=== PATIENT | male | born 1970 | race Caucasian/White ===

== ENCOUNTER 2016-11-18 17:56 | Emergency (ER) | payer MEDICAID ==
[~2016-11-18] VITALS: Ht 182.9 cm; Wt 109.5 kg
[~2016-11-18 17:56] MED LIST: BUPR150T73 PO; FOLI-17 PO; GABA300C10 PO; HYDR-3240 PO; HYDR50TA13 PO; LORA-446 PO; METR500T PO; MULT1TAB60 PO; OXYC1TAB9 PO; PANT40TA5 PO; POTA20TA14 PO; QUET100T PO; QUET200T PO; QUET400T4 PO; SERT25TA3 PO; SIMV20TA3 PO; SUCR1TAB PO; THIA100T6 PO; WARF10TA6 PO; WARF7.5T6 PO
[2016-11-18] MEDS ORDERED: FAMOTIDINE 20 MG/2 ML ONE (18:21)
[2016-11-18] MEDS ORDERED: ONDANSETRON 2MG/ML, 2ML ONE (18:21)
[2016-11-18] MEDS ORDERED: SODIUM CHLORIDE FLUSH 10ML SYR IVF ONE (18:30)
[2016-11-18] MEDS ORDERED: FAMOTIDINE 20 MG/2 ML IVP ONE (18:30)
[2016-11-18] MEDS ORDERED: ONDANSETRON 2MG/ML, 2ML IVPush ONE (18:30)
[2016-11-18] MEDS ORDERED: SODIUM CHLORIDE 0.9% 1,000ML IVBOLUS ONE ×2 (18:30→20:00)
[2016-11-18 19:02] LABS: HEMOGLOBIN 13.6 g/dL (13.7-18.0)
[2016-11-18 19:09] LABS: ASPARTATE AMINO TRANSFERASE 71 U/L (15-37); BLOOD UREA NITROGEN 16 mg/dL (7-18)
[2016-11-18] MEDS ORDERED: MORPHINE SULFATE 4 MG/ML, 1ML ONE (19:25)
[2016-11-18] MEDS ORDERED: morphine SULFATE 10 MG/ML, 1ML IVPush ONE (19:30)
[2016-11-18] MEDS ORDERED: HYDROmorphone 1 MG/ML, 1ML IV ONE (20:00)
[2016-11-18] MEDS ORDERED: HYDROmorphone 1 MG/ML, 1ML ONE (20:10)
[2016-11-18] MEDS ORDERED: MAALOX/HYOSCYAMINE/LIDOCAINE 45 ML BOTTLE PO ONE (20:30)
[2016-11-18 22:24] VITALS: BP 151/85
== END 2016-11-18 22:40 | disposition home or self-care (01) ==
LOC: ED 21:44
DX: K52.9 Noninfective gastroenteritis and colitis, unspecified (principal); K29.20 Alcoholic gastritis without bleeding; R10.84 Generalized abdominal pain; E78.5 Hyperlipidemia, unspecified
CPT/HCPCS: 36415; 74020; 80053; 81001; 83690; 85025; 87324; 89055; 93005; 96361; 96374; 96375; 99285; J1170; J2270; J2405; J7030; S0028

== ENCOUNTER 2017-04-21 00:03 | Emergency (ER) | payer MEDICAID ==
[~2017-04-21] VITALS: Ht 182.9 cm; Wt 108.2 kg
[2017-04-21 00:04] VITALS: BP 143/97
[2017-04-21] MEDS ORDERED: MORPHINE SULFATE 4 MG/ML, 1ML IVPush PRN (01:00)
[2017-04-21] MEDS ORDERED: ONDANSETRON 2MG/ML, 2ML IVPush ONE (01:00)
[2017-04-21] MEDS ORDERED: SODIUM CHLORIDE 0.9% 1,000ML IVBOLUS ONE (01:00)
[2017-04-21 01:03] LABS: HEMATOCRIT 42.6 % (39.2-51.8); HEMOGLOBIN 14.3 g/dL (13.7-18.0); WHITE BLOOD COUNT 7.2 x10^3/uL (3.4-10)
[2017-04-21 01:13] LABS: ASPARTATE AMINO TRANSFERASE 74 U/L (15-37); BLOOD UREA NITROGEN 14 mg/dL (7-18)
[2017-04-21] MEDS ORDERED: ONDANSETRON 2MG/ML, 2ML ONE (01:31)
[2017-04-21] MEDS ORDERED: MORPHINE SULFATE 4 MG/ML, 1ML ONE (01:31)
[2017-04-21] MEDS ORDERED: HYDROmorphone 1 MG/ML, 1ML ONE (03:15)
[2017-04-21] MEDS ORDERED: HYDROmorphone 1 MG/ML, 1ML IV ONE (03:30)
== END 2017-04-21 03:57 | disposition home or self-care (01) ==
LOC: ED 03:48
DX: K29.20 Alcoholic gastritis without bleeding (principal); Z86.718 Personal history of other venous thrombosis and embolism; D65 Disseminated intravascular coagulation [defibrination syndrome]
CPT/HCPCS: 36415; 80053; 80307; 81001; 83690; 85025; 96361; 96374; 96375; 99285; J1170; J2405; J7030

== ENCOUNTER 2017-04-22 02:11 | Emergency (ER) | payer MEDICAID ==
[~2017-04-22] VITALS: Ht 182.9 cm; Wt 108.7 kg
[2017-04-22] MEDS ORDERED: ONDANSETRON 2MG/ML, 2ML IVPush ONE (02:30)
[2017-04-22] MEDS ORDERED: SODIUM CHLORIDE 0.9% 1,000ML IVBOLUS ONE (02:30)
[2017-04-22 03:03] LABS: ASPARTATE AMINO TRANSFERASE 47 U/L (15-37); BLOOD UREA NITROGEN 11 mg/dL (7-18)
[2017-04-22] MEDS ORDERED: ONDANSETRON 2MG/ML, 2ML ONE (03:12)
[2017-04-22] MEDS ORDERED: HYDROmorphone 1 MG/ML, 1ML ONE ×2 (03:12→04:07)
[2017-04-22 03:16] LABS: HEMATOCRIT 40.6 % (39.2-51.8); HEMOGLOBIN 13.6 g/dL (13.7-18.0); WHITE BLOOD COUNT 5.2 x10^3/uL (3.4-10)
[2017-04-22] MEDS: HYDROmorphone 1 MG/ML, 1ML IVPush PRN ×2 (03:18→04:09)
[2017-04-22] MEDS ORDERED: OMNIPAQUE 350 MG/ML, 100ML BOTTLE ONE (03:50)
[2017-04-22 04:00] VITALS: BP 147/88
== END 2017-04-22 04:59 | disposition home or self-care (01) ==
LOC: ED 02:49
DX: A09 Infectious gastroenteritis and colitis, unspecified (principal); E78.5 Hyperlipidemia, unspecified; F32.9 Major depressive disorder, single episode, unspecified; Z90.49 Acquired absence of other specified parts of digestive tract
CPT/HCPCS: 36415; 74177; 80053; 80307; 83690; 85025; 96361; 96374; 96375; 96376; 99285; J1170; J2405; J7030; Q9967

== ENCOUNTER 2017-05-26 04:11 | Emergency (ER) | payer MEDICAID ==
[~2017-05-26] VITALS: Ht 182.9 cm; Wt 106.5 kg
[2017-05-26] MEDS ORDERED: SODIUM CHLORIDE 0.9% 1,000ML IVBOLUS ONE ×2 (05:00→07:00)
[2017-05-26] MEDS ORDERED: ONDANSETRON 2MG/ML, 2ML IVPush ONE (05:00)
[2017-05-26] MEDS ORDERED: ONDANSETRON 2MG/ML, 2ML ONE (05:06)
[2017-05-26] MEDS ORDERED: LORazepam 2 MG/ML, 1ML ONE ×3 (05:06→07:44)
[2017-05-26] MEDS: LORazepam 2 MG/ML, 1ML IVPush PRN ×4 (05:14→08:25)
[2017-05-26] MEDS ORDERED: THIAMINE 100 MG in SODIUM CHLORIDE 0.9% 50 ML IVPB ONE (05:30)
[2017-05-26] MEDS ORDERED: FAMOTIDINE 20 MG/2 ML ONE (05:33)
[2017-05-26] MEDS ORDERED: MAALOX/HYOSCYAMINE/LIDOCAINE 45 ML BTL ONE (05:33)
[2017-05-26 05:42] LABS: HEMATOCRIT 46.2 % (39.2-51.8); WHITE BLOOD COUNT 5.9 x10^3/uL (3.4-10)
[2017-05-26 05:51] LABS: ASPARTATE AMINO TRANSFERASE 165 U/L (15-37); BLOOD UREA NITROGEN 6 mg/dL (7-18)
[2017-05-26] MEDS ORDERED: FAMOTIDINE 20 MG/2 ML IVP ONE (06:00)
[2017-05-26] MEDS ORDERED: MAALOX/HYOSCYAMINE/LIDOCAINE 45 ML BTL PO ONE (06:00)
[2017-05-26] MEDS ORDERED: HYDROmorphone 1 MG/ML, 1ML ONE ×2 (07:10→08:14)
[2017-05-26] MEDS: HYDROmorphone 1 MG/ML, 1ML IVPush PRN ×2 (07:20→08:25)
[2017-05-26 07:22] VITALS: BP 139/94
== END 2017-05-26 08:42 | disposition home or self-care (01) ==
LOC: ED 05:15
DX: K29.20 Alcoholic gastritis without bleeding (principal); F41.9 Anxiety disorder, unspecified; F10.239 Alcohol dependence with withdrawal, unspecified; E78.5 Hyperlipidemia, unspecified
CPT/HCPCS: 36415; 80053; 80307; 81001; 83690; 85025; 87086; 96361; 96365; 96375; 96376; 99284; J1170; J2060; J2405; J3411; J7030; G0479; S0028

== ENCOUNTER 2017-05-26 23:18 | Emergency (ER) | payer MEDICAID ==
[~2017-05-26] VITALS: Ht 182.9 cm; Wt 109.5 kg
[2017-05-27 00:27] LABS: BLOOD UREA NITROGEN 6 mg/dL (7-18)
[2017-05-27 00:29] LABS: ASPARTATE AMINO TRANSFERASE 104 U/L (15-37)
[2017-05-27] MEDS ORDERED: LORazepam 2 MG/ML, 1ML IVPush ONE (00:30)
[2017-05-27] MEDS ORDERED: PROMETHAZINE 25 MG/ML, 1ML IM ONE (00:30)
[2017-05-27] MEDS ORDERED: SODIUM CHLORIDE FLUSH 10ML SYR IVF ONE (00:30)
[2017-05-27] MEDS ORDERED: THIAMINE 100 MG/ML, 2ML IM ONE (00:30)
[2017-05-27] MEDS ORDERED: ONDANSETRON 2MG/ML, 2ML IVPush ONE (00:30)
[2017-05-27] MEDS ORDERED: SODIUM CHLORIDE 0.9% 1,000ML IVBOLUS ONE (00:30)
[2017-05-27 00:33] LABS: HEMATOCRIT 36.6 % (39.2-51.8); HEMOGLOBIN 12.6 g/dL (13.7-18.0)
[2017-05-27] MEDS ORDERED: PROMETHAZINE 25 MG/ML, 1ML ONE (00:34)
[2017-05-27] MEDS ORDERED: LORazepam 2 MG/ML, 1ML ONE (00:34)
[2017-05-27] MEDS ORDERED: ONDANSETRON 2MG/ML, 2ML ONE (00:34)
[2017-05-27] MEDS ORDERED: THIAMINE 100MG TABLET ONE (00:34)
[2017-05-27 00:42] LABS: PATH.CAST-FLAG NOT PRESENT; SPERM-FLAG NOT PRESENT; SRC-FLAG NOT PRESENT; XTAL-FLAG NOT PRESENT; YLC-FLAG NOT PRESENT
[2017-05-27 01:41] VITALS: BP 129/79
== END 2017-05-27 02:22 | disposition home or self-care (01) ==
LOC: ED 05-27 00:23
DX: K29.20 Alcoholic gastritis without bleeding (principal); E78.5 Hyperlipidemia, unspecified; F10.239 Alcohol dependence with withdrawal, unspecified; R45.1 Restlessness and agitation; Z90.49 Acquired absence of other specified parts of digestive tract
CPT/HCPCS: 36415; 80053; 80307; 81001; 83690; 85025; 96361; 96372; 96374; 96375; 99285; J2060; J2405; J2550; J3411; J7030; G0479

== ENCOUNTER 2017-06-07 08:40 | Emergency (ER) | payer MEDICAID ==
[~2017-06-07] VITALS: Ht 182.9 cm; Wt 109.0 kg
[2017-06-07] MEDS ORDERED: FAMOTIDINE 20 MG/2 ML ONE (09:09)
[2017-06-07] MEDS ORDERED: ONDANSETRON 2MG/ML, 2ML ONE ×2 (09:09→10:40)
[2017-06-07] MEDS ORDERED: LORazepam 2 MG/ML, 1ML ONE ×2 (09:09→11:00)
[2017-06-07] MEDS ORDERED: ONDANSETRON 2MG/ML, 2ML IVPush ONE (09:30)
[2017-06-07] MEDS ORDERED: LORazepam 2 MG/ML, 1ML IVPush ONE ×2 (09:30→11:00)
[2017-06-07] MEDS ORDERED: SODIUM CHLORIDE 0.9% 1,000ML IVBOLUS ONE (09:30)
[2017-06-07] MEDS ORDERED: SODIUM CHLORIDE FLUSH 10ML SYR IVF ONE (09:30)
[2017-06-07] MEDS ORDERED: PLEASE ENTER HEIGHT AND WEIGHT MC SCH (09:30)
[2017-06-07] MEDS ORDERED: FAMOTIDINE 20 MG/2 ML IVP ONE (09:30)
[2017-06-07 09:41] LABS: HEMATOCRIT 44.2 % (39.2-51.8); HEMOGLOBIN 15.4 g/dL (13.7-18.0); WHITE BLOOD COUNT 4.3 x10^3/uL (3.4-10)
[2017-06-07 09:42] LABS: ASPARTATE AMINO TRANSFERASE 74 U/L (15-37); BLOOD UREA NITROGEN 7 mg/dL (7-18)
[2017-06-07 09:43] LABS: IS PT STATUS REG ER OR PRE ER? YES
[2017-06-07] MEDS ORDERED: MAALOX/HYOSCYAMINE/LIDOCAINE 45 ML BTL ONE (10:04)
[2017-06-07] MEDS ORDERED: MAALOX/HYOSCYAMINE/LIDOCAINE 45 ML BTL PO ONE (10:30)
[2017-06-07] MEDS ORDERED: HYDROmorphone 1 MG/ML, 1ML ONE (10:40)
[2017-06-07 11:27] VITALS: BP 136/88
== END 2017-06-07 11:40 | disposition home or self-care (01) ==
LOC: ED 11:00
DX: K29.20 Alcoholic gastritis without bleeding (principal); F10.229 Alcohol dependence with intoxication, unspecified; R79.89 Other specified abnormal findings of blood chemistry; Z88.0 Allergy status to penicillin; Z90.49 Acquired absence of other specified parts of digestive tract
CPT/HCPCS: 36415; 71010; 76700; 80053; 80307; 83690; 84484; 85025; 93005; 96361; 96374; 96375; 96376; 99285; J2060; J2405; J7030; G0479; S0028

== ENCOUNTER 2017-06-15 08:35 | Emergency (ER) | payer MEDICAID ==
[~2017-06-15] VITALS: Ht 182.9 cm; Wt 107.0 kg
[2017-06-15] MEDS ORDERED: FAMO-79 PO (08:58)
[2017-06-15] MEDS ORDERED: SERT100T PO (08:59)
[2017-06-15] MEDS ORDERED: MAALOX/HYOSCYAMINE/LIDOCAINE 45 ML BTL ONE (09:23)
[2017-06-15] MEDS ORDERED: ONDANSETRON 2MG/ML, 2ML ONE (09:23)
[2017-06-15] MEDS ORDERED: LORazepam 2 MG/ML, 1ML ONE (09:23)
[2017-06-15] MEDS ORDERED: PANTOPRAZOLE 40 MG IV ONE (09:23)
[2017-06-15] MEDS ORDERED: MAALOX/HYOSCYAMINE/LIDOCAINE 45 ML BTL PO ONE (09:30)
[2017-06-15] MEDS ORDERED: ONDANSETRON 2MG/ML, 2ML IVPush ONE (09:30)
[2017-06-15] MEDS ORDERED: SODIUM CHLORIDE FLUSH 10ML SYR IVF ONE (09:30)
[2017-06-15] MEDS ORDERED: LORazepam 2 MG/ML, 1ML IVPush PRN (09:30)
[2017-06-15] MEDS ORDERED: PANTOPRAZOLE 40 MG IV IVP ONE (09:30)
[2017-06-15] MEDS ORDERED: SODIUM CHLORIDE 0.9% 1,000ML IVBOLUS ONE ×2 (09:30→11:30)
[2017-06-15 09:46] LABS: ASPARTATE AMINO TRANSFERASE 123 U/L (15-37); BLOOD UREA NITROGEN 7 mg/dL (7-18)
[2017-06-15 09:57] LABS: HEMATOCRIT 36.8 % (39.2-51.8); HEMOGLOBIN 12.8 g/dL (13.7-18.0); WHITE BLOOD COUNT 4.6 x10^3/uL (3.4-10)
[2017-06-15 09:58] LABS: ANISOCYTOSIS 1+
[2017-06-15] MEDS ORDERED: OMNIPAQUE 350 MG/ML, 100ML BOTTLE ONE (10:12)
[2017-06-15] MEDS ORDERED: morphine SULFATE 10 MG/ML, 1ML IVPush ONE ×2 (10:30→11:30)
[2017-06-15] MEDS ORDERED: morphine SULFATE 10 MG/ML, 1ML ONE ×2 (10:40→11:46)
[2017-06-15] MEDS ORDERED: CHLORDIAZEPOXIDE 25 MG CAPSULE PO PRN (11:30)
[2017-06-15 12:31] VITALS: BP 142/86
== END 2017-06-15 12:34 | disposition home or self-care (01) ==
LOC: ED 09:45
DX: K52.9 Noninfective gastroenteritis and colitis, unspecified (principal); R11.2 Nausea with vomiting, unspecified; R19.7 Diarrhea, unspecified; K29.20 Alcoholic gastritis without bleeding; F10.239 Alcohol dependence with withdrawal, unspecified; E78.5 Hyperlipidemia, unspecified; Z90.49 Acquired absence of other specified parts of digestive tract; Z88.0 Allergy status to penicillin
CPT/HCPCS: 36415; 74177; 80053; 83690; 85025; 85610; 85730; 93005; 96361; 96374; 96375; 96376; 99285; C9113; J2060; J2270; J2405; J7030; Q9967

== ENCOUNTER 2017-09-28 22:15 | Observation (INO) | payer MEDICAID, OTHER ==
[~2017-09-28] VITALS: Ht 182.9 cm; Wt 117.6 kg
[~2017-09-28 22:15] MED LIST changes: +FAMO-79 PO; +SERT100T PO
[2017-09-28 23:16] LABS: BASOPHILS # (AUTO) 0.04 x10^3/uL (0-0.1); BASOPHILS % (AUTO) 0 % (0-1); EOSINOPHILS # (AUTO) 0.05 x10^3/uL (0-0.4); EOSINOPHILS % (AUTO) 1 % (1-7); LYMPHOCYTES # (AUTO) 1.43 x10^3/uL (1-3.4); LYMPHOCYTES % (AUTO) 14 % (22-44); MD NO; MEAN CORPUSCULAR HEMOGLOBIN 36.2 pg (27.5-34.5); MEAN CORPUSCULAR VOLUME 106.4 fL (81-97); MEAN PLATELET VOLUME 6.9 fL (7.4-10.4); MONOCYTES # (AUTO) 0.53 x10^3/uL (0.2-0.8); MONOCYTES % (AUTO) 5 % (2-9); NEUTROPHILS # (AUTO) 8.18 x10^3/uL (1.8-6.8); NEUTROPHILS % (AUTO) 80 % (42-75); PLATELET COUNT 125 x10^3/uL (130-400); RED CELL DISTRIBUTION WIDTH 14.4 % (9.4-14.8)
[2017-09-28 23:21] LABS: ALANINE AMINOTRANSFERASE 21 U/L (12-78); ALBUMIN 3.8 g/dL (3.4-5.0); ANION GAP 11 mmol/L (5-15); CALCIUM 8.2 mg/dL (8.5-10.1); CHLORIDE 108 mmol/L (98-107)
[2017-09-28 23:23] LABS: ALKALINE PHOSPHATASE 76 U/L (45-117); BILIRUBIN,TOTAL 0.3 mg/dL (0.2-1.0); TOTAL PROTEIN 7.6 g/dL (6.4-8.2)
[2017-09-28 23:23] LABS: AMPHETAMINE SCREEN, URINE Negative (Negative); BARBITURATE SCREEN, URINE Negative (Negative); BENZODIAZEPINE SCREEN, URINE Negative (Negative); CANNABINOID SCREEN, URINE Negative (Negative); COCAINE SCREEN, URINE Negative (Negative); METHADONE SCREEN, URINE Negative (Negative); OPIATE SCREEN, URINE Negative (Negative)
[2017-09-28 23:25] LABS: ACETAMINOPHEN < 2 mcg/mL (10-30); SALICYLATE LEVEL < 1.7 mg/dL (2.8-20.0)
[2017-09-29] MEDS ORDERED: ONDANSETRON ODT 4 MG PO PRN (07:30)
[2017-09-29 08:12] VITALS: BP 163/84
[2017-09-29] MEDS: SERTRALINE 100MG TABLET PO SCH (08:28)
[2017-09-29] MEDS: ACETAMINOPHEN 325 MG TABLET PO PRN ×3 (08:28→19:31)
[2017-09-29] MEDS: LORazepam 1MG TABLET PO PRN ×2 (08:28→17:26)
[2017-09-29] MEDS: FOLIC ACID 1 MG TABLET PO SCH (08:28)
[2017-09-29] MEDS ORDERED: THIAMINE 100MG TABLET PO ONE (09:00)
[2017-09-29 17:29] VITALS: BP 132/79
[2017-09-29 19:21] VITALS: BP 132/82
[2017-09-29] MEDS: QUETIAPINE 200 MG TABLET PO SCH (20:55)
[2017-09-29] MEDS ORDERED: TRIAMCINOLONE CRM 0.1%, 15GM TP SCH (22:58)
[2017-09-30 07:00] VITALS: BP 130/81
[2017-09-30] MEDS: TRIAMCINOLONE CRM 0.1%, 15GM TP SCH (09:14)
[2017-09-30] MEDS: FOLIC ACID 1 MG TABLET PO SCH (09:14)
[2017-09-30] MEDS: SERTRALINE 100MG TABLET PO SCH (09:14)
[2017-09-30] MEDS: LORazepam 1MG TABLET PO PRN ×2 (09:14→16:02)
[2017-09-30 20:00] VITALS: BP 134/72
[2017-09-30] MEDS: QUETIAPINE 200 MG TABLET PO SCH (20:31)
[2017-10-01 07:30] VITALS: BP 128/82
[2017-10-01] MEDS: FOLIC ACID 1 MG TABLET PO SCH (08:44)
[2017-10-01] MEDS: SERTRALINE 100MG TABLET PO SCH (08:44)
[2017-10-01] MEDS: TRIAMCINOLONE CRM 0.1%, 15GM TP SCH (08:44)
[2017-10-01] MEDS: LORazepam 1MG TABLET PO PRN (19:43)
[2017-10-01 20:00] VITALS: BP 137/77
[2017-10-01] MEDS: QUETIAPINE 200 MG TABLET PO SCH (20:31)
[2017-10-02 08:19] VITALS: BP 119/79
[2017-10-02] MEDS: FOLIC ACID 1 MG TABLET PO SCH (08:33)
[2017-10-02] MEDS: SERTRALINE 100MG TABLET PO SCH (08:33)
[2017-10-02] MEDS: TRIAMCINOLONE CRM 0.1%, 15GM TP SCH (08:36)
[2017-10-02 19:54] VITALS: BP 127/84
[2017-10-02] MEDS: QUETIAPINE 200 MG TABLET PO SCH (20:40)
[2017-10-02] MEDS: ACETAMINOPHEN 325 MG TABLET PO PRN (20:40)
[2017-10-02] MEDS: LORazepam 1MG TABLET PO PRN (20:40)
[2017-10-03 08:17] VITALS: BP 120/75
[2017-10-03] MEDS: SERTRALINE 100MG TABLET PO SCH (08:23)
[2017-10-03] MEDS: TRIAMCINOLONE CRM 0.1%, 15GM TP SCH (08:24)
[2017-10-03] MEDS: LORazepam 1MG TABLET PO PRN ×2 (08:24→17:27)
[2017-10-03] MEDS: FOLIC ACID 1 MG TABLET PO SCH (08:24)
[2017-10-03 17:25] VITALS: BP 111/77
[2017-10-03] MEDS: ACETAMINOPHEN 325 MG TABLET PO PRN (17:27)
[2017-10-03 19:44] VITALS: BP 117/58
[2017-10-03] MEDS: QUETIAPINE 200 MG TABLET PO SCH (21:58)
[2017-10-04 07:22] VITALS: BP 125/78
[2017-10-04] MEDS: SERTRALINE 100MG TABLET PO SCH (08:47)
[2017-10-04] MEDS: FOLIC ACID 1 MG TABLET PO SCH (08:47)
[2017-10-04] MEDS: TRIAMCINOLONE CRM 0.1%, 15GM TP SCH (18:01)
[2017-10-04 19:40] VITALS: BP 124/80
[2017-10-04] MEDS: QUETIAPINE 200 MG TABLET PO SCH (21:44)
[2017-10-05 08:20] VITALS: BP 122/88
[2017-10-05] MEDS: TRIAMCINOLONE CRM 0.1%, 15GM TP SCH (08:59)
[2017-10-05] MEDS: SERTRALINE 100MG TABLET PO SCH (08:59)
[2017-10-05] MEDS: FOLIC ACID 1 MG TABLET PO SCH (08:59)
[2017-10-05 19:33] VITALS: BP 120/80
[2017-10-05] MEDS: QUETIAPINE 200 MG TABLET PO SCH (21:04)
[2017-10-05] MEDS: LORazepam 1MG TABLET PO PRN (23:26)
[2017-10-06 07:28] VITALS: BP 117/76
[2017-10-06] MEDS: FOLIC ACID 1 MG TABLET PO SCH (08:31)
[2017-10-06] MEDS: SERTRALINE 100MG TABLET PO SCH (08:31)
[2017-10-06] MEDS: TRIAMCINOLONE CRM 0.1%, 15GM TP SCH (08:32)
[2017-10-06] MEDS: LORazepam 1MG TABLET PO PRN ×2 (16:04→22:01)
[2017-10-06 19:49] VITALS: BP 112/77
[2017-10-06] MEDS: ACETAMINOPHEN 325 MG TABLET PO PRN (22:01)
[2017-10-06] MEDS: QUETIAPINE 200 MG TABLET PO SCH (22:01)
[2017-10-06] MEDS: TRAZODONE 150MG TABLET PO SCH (22:29)
[2017-10-07 07:55] VITALS: BP 108/70
[2017-10-07] MEDS: SERTRALINE 100MG TABLET PO SCH (08:46)
[2017-10-07] MEDS: FOLIC ACID 1 MG TABLET PO SCH (08:47)
[2017-10-07] MEDS: QUETIAPINE 200 MG TABLET PO SCH ×2 (08:47→21:15)
[2017-10-07] MEDS: TRIAMCINOLONE CRM 0.1%, 15GM TP SCH (08:49)
[2017-10-07 19:11] VITALS: BP_SYST 107; BP_SYST 112; BP_DIAS 63; BP_DIAS 78
[2017-10-07] MEDS: TRAZODONE 150MG TABLET PO SCH (21:15)
[2017-10-08 06:27] LABS: BASOPHILS # (AUTO) 0.03 x10^3/uL (0-0.1); BASOPHILS % (AUTO) 0 % (0-1); EOSINOPHILS % (AUTO) 1 % (1-7); LYMPHOCYTES # (AUTO) 1.88 x10^3/uL (1-3.4); LYMPHOCYTES % (AUTO) 26 % (22-44); MD NO; MEAN CORPUSCULAR HEMOGLOBIN 34.9 pg (27.5-34.5); MEAN CORPUSCULAR HGB CONC 33.6 g/dL (33.2-36.2); MEAN CORPUSCULAR VOLUME 104.1 fL (81-97); MEAN PLATELET VOLUME 7.2 fL (7.4-10.4); MONOCYTES # (AUTO) 0.58 x10^3/uL (0.2-0.8); MONOCYTES % (AUTO) 8 % (2-9); NEUTROPHILS # (AUTO) 4.75 x10^3/uL (1.8-6.8); NEUTROPHILS % (AUTO) 65 % (42-75); PLATELET COUNT 129 x10^3/uL (130-400); RED BLOOD COUNT 3.78 x10^6/uL (4.38-5.82); RED CELL DISTRIBUTION WIDTH 13.6 % (9.4-14.8)
[2017-10-08 06:38] LABS: ANION GAP 7 mmol/L (5-15); CALCIUM 8.9 mg/dL (8.5-10.1); CHLORIDE 109 mmol/L (98-107); CREATININE 1.52 mg/dL (0.7-1.3)
[2017-10-08 07:30] VITALS: BP 101/69
[2017-10-08] MEDS: QUETIAPINE 200 MG TABLET PO SCH ×2 (08:18→21:24)
[2017-10-08] MEDS: FOLIC ACID 1 MG TABLET PO SCH (08:18)
[2017-10-08] MEDS: SERTRALINE 100MG TABLET PO SCH (08:18)
[2017-10-08] MEDS: TRIAMCINOLONE CRM 0.1%, 15GM TP SCH (08:20)
[2017-10-08 20:51] VITALS: BP 118/76
[2017-10-08] MEDS: TRAZODONE 150MG TABLET PO SCH (21:24)
[2017-10-09 07:05] LABS: CREATININE 1.52 mg/dL (0.7-1.3)
[2017-10-09 07:30] VITALS: BP 120/82
[2017-10-09] MEDS: SERTRALINE 100MG TABLET PO SCH (08:27)
[2017-10-09] MEDS: FOLIC ACID 1 MG TABLET PO SCH (08:27)
[2017-10-09] MEDS: TRIAMCINOLONE CRM 0.1%, 15GM TP SCH (08:27)
[2017-10-09] MEDS: QUETIAPINE 200 MG TABLET PO SCH ×2 (08:27→21:51)
[2017-10-09 20:14] VITALS: BP 114/74
[2017-10-09] MEDS: TRAZODONE 150MG TABLET PO SCH (21:52)
[2017-10-09] MEDS: ACETAMINOPHEN 325 MG TABLET PO PRN (21:54)
[2017-10-10] MEDS: SERTRALINE 100MG TABLET PO SCH (08:13)
[2017-10-10] MEDS: FOLIC ACID 1 MG TABLET PO SCH (08:13)
[2017-10-10] MEDS: QUETIAPINE 200 MG TABLET PO SCH ×2 (08:13→20:42)
[2017-10-10] MEDS: TRIAMCINOLONE CRM 0.1%, 15GM TP SCH (08:14)
[2017-10-10 08:23] VITALS: BP 114/76
[2017-10-10 15:39] VITALS: BP 120/85
[2017-10-10] MEDS: LORazepam 1MG TABLET PO PRN ×2 (15:42→22:08)
[2017-10-10 19:35] VITALS: BP 115/77
[2017-10-10] MEDS: TRAZODONE 150MG TABLET PO SCH (20:42)
[2017-10-11 07:30] VITALS: BP 100/65
[2017-10-11] MEDS: QUETIAPINE 200 MG TABLET PO SCH ×2 (09:02→21:04)
[2017-10-11] MEDS: FOLIC ACID 1 MG TABLET PO SCH (09:02)
[2017-10-11] MEDS: SERTRALINE 100MG TABLET PO SCH (09:03)
[2017-10-11] MEDS: TRIAMCINOLONE CRM 0.1%, 15GM TP SCH (09:07)
[2017-10-11] MEDS: LORazepam 1MG TABLET PO PRN (12:46)
[2017-10-11 19:54] VITALS: BP 125/80
[2017-10-11] MEDS: ACETAMINOPHEN 325 MG TABLET PO PRN (21:04)
[2017-10-11] MEDS: TRAZODONE 150MG TABLET PO SCH (21:05)
[2017-10-12] MEDS: TRIAMCINOLONE CRM 0.1%, 15GM TP SCH (08:18)
[2017-10-12] MEDS: QUETIAPINE 200 MG TABLET PO SCH ×2 (08:18→21:40)
[2017-10-12] MEDS: SERTRALINE 100MG TABLET PO SCH (08:18)
[2017-10-12] MEDS: FOLIC ACID 1 MG TABLET PO SCH (08:18)
[2017-10-12 08:38] VITALS: BP 105/71
[2017-10-12] MEDS: ACETAMINOPHEN 325 MG TABLET PO PRN (10:59)
[2017-10-12] MEDS: LORazepam 1MG TABLET PO PRN (17:55)
[2017-10-12 19:46] VITALS: BP 114/73
[2017-10-12] MEDS: TRAZODONE 150MG TABLET PO SCH (21:41)
== END 2017-10-13 01:00 ==
LOC: ED 23:32 → EDIP 09-29 06:39 → SUATTDRO 09-29 06:56 → 2N 09-29 08:08
PROVIDERS: ADMIT Hospitalist; ATTEND Hospitalist
DX: T14.91XA Suicide attempt, initial encounter (principal); T50.992A Poisoning by other drugs, medicaments and biological substances, intentional self-harm, initial encounter; F32.9 Major depressive disorder, single episode, unspecified; L21.9 Seborrheic dermatitis, unspecified; F10.20 Alcohol dependence, uncomplicated; F41.9 Anxiety disorder, unspecified; I10 Essential (primary) hypertension; E11.9 Type 2 diabetes mellitus without complications; Y92.89 Other specified places as the place of occurrence of the external cause; Y93.89 Activity, other specified; Y99.8 Other external cause status
CPT/HCPCS: 36415; 80048; 80053; 80307; 80329; 82565; 85025; 99285; G0378; G0480

== ENCOUNTER 2017-12-03 20:16 | Inpatient (IN) | payer MEDICAID ==
[~2017-12-03] VITALS: Ht 182.9 cm; Wt 123.8 kg
[~2017-12-03 20:16] MED LIST changes: +POTA20TA89 PO; +RIVA15TA PO; +VENL150C PO
[2017-12-03] MEDS ORDERED: MORPHINE SULFATE 4 MG/ML, 1ML ONE ×2 (21:43→22:59)
[2017-12-03 21:46] LABS: BASOPHILS # (AUTO) 0.02 x10^3/uL (0-0.1); BASOPHILS % (AUTO) 0 % (0-1); EOSINOPHILS # (AUTO) 0.07 x10^3/uL (0-0.4); EOSINOPHILS % (AUTO) 1 % (1-7); LYMPHOCYTES # (AUTO) 1.49 x10^3/uL (1-3.4); LYMPHOCYTES % (AUTO) 25 % (22-44); MD NO; MEAN CORPUSCULAR HEMOGLOBIN 34.4 pg (27.5-34.5); MEAN CORPUSCULAR VOLUME 101.1 fL (81-97); MEAN PLATELET VOLUME 7.8 fL (7.4-10.4); MONOCYTES % (AUTO) 7 % (2-9); NEUTROPHILS # (AUTO) 4.05 x10^3/uL (1.8-6.8); NEUTROPHILS % (AUTO) 67 % (42-75); PLATELET COUNT 146 x10^3/uL (130-400); RED BLOOD COUNT 3.68 x10^6/uL (4.38-5.82); RED CELL DISTRIBUTION WIDTH 13.9 % (9.4-14.8)
[2017-12-03] MEDS: MORPHINE SULFATE 4 MG/ML, 1ML IVPush PRN ×2 (21:47→23:07)
[2017-12-03 21:56] LABS: ALBUMIN 3.7 g/dL (3.4-5.0); ANION GAP 7 mmol/L (5-15); CHLORIDE 109 mmol/L (98-107); CREATININE 1.64 mg/dL (0.7-1.3)
[2017-12-03] MEDS ORDERED: MORPHINE SULFATE 4 MG/ML, 1ML IVPush PRN (23:30)
[2017-12-03] MEDS ORDERED: ONDANSETRON 2MG/ML, 2ML IVPush PRN (23:30)
[2017-12-03] MEDS ORDERED: HEPARIN 5,000 UNITS/ML, 1ML IV ONE (23:45)
[2017-12-03] MEDS ORDERED: HEPARIN 25,000 UNITS/500ML PMX 500 ML IV PRN (23:45)
[2017-12-04] MEDS ORDERED: BISACODYL 10 MG SUPP PR PRN
[2017-12-04] MEDS ORDERED: POTASSIUM CHLORIDE 20 MEQ TAB.ER.PRT PO ONE
[2017-12-04] MEDS ORDERED: POLYETHYLENE GLYCOL 17 GM PACKET PO PRN
[2017-12-04] MEDS ORDERED: hydrALAzine 20 MG/ML, 1ML IVPush PRN
[2017-12-04] MEDS ORDERED: ONDANSETRON 2MG/ML, 2ML IVPush PRN
[2017-12-04] MEDS ORDERED: LABETALOL 5MG/ML, 20ML IVPush PRN
[2017-12-04 00:02] VITALS: BP 127/79
[2017-12-04] MEDS: OXYcodone IR 5MG TABLET PO PRN ×4 (00:58→23:30)
[2017-12-04] MEDS: QUETIAPINE 200 MG TABLET PO SCH ×3 (00:59→20:25)
[2017-12-04] MEDS: HEPARIN 25,000 UNITS/500ML PMX 500 ML IV PRN ×2 (01:26→20:31)
[2017-12-04] MEDS ORDERED: HEPARIN 5,000 UNITS/ML, 1ML IV ONE (01:30)
[2017-12-04] MEDS ORDERED: MORPHINE SULFATE 4 MG/ML, 1ML ONE ×4 (02:27→20:17)
[2017-12-04] MEDS: morphine SULFATE 10 MG/ML, 1ML IVPush PRN ×4 (02:35→20:26)
[2017-12-04 06:53] VITALS: BP 116/76
[2017-12-04 08:08] LABS: BASOPHILS # (AUTO) 0.02 x10^3/uL (0-0.1); BASOPHILS % (AUTO) 1 % (0-1); EOSINOPHILS # (AUTO) 0.07 x10^3/uL (0-0.4); EOSINOPHILS % (AUTO) 2 % (1-7); LYMPHOCYTES # (AUTO) 1.69 x10^3/uL (1-3.4); LYMPHOCYTES % (AUTO) 37 % (22-44); MD NO; MEAN CORPUSCULAR HEMOGLOBIN 34.4 pg (27.5-34.5); MEAN CORPUSCULAR HGB CONC 33.9 g/dL (33.2-36.2); MEAN CORPUSCULAR VOLUME 101.3 fL (81-97); MEAN PLATELET VOLUME 8.2 fL (7.4-10.4); MONOCYTES # (AUTO) 0.38 x10^3/uL (0.2-0.8); MONOCYTES % (AUTO) 8 % (2-9); NEUTROPHILS # (AUTO) 2.38 x10^3/uL (1.8-6.8); NEUTROPHILS % (AUTO) 52 % (42-75); PLATELET COUNT 115 x10^3/uL (130-400); RED BLOOD COUNT 3.47 x10^6/uL (4.38-5.82); RED CELL DISTRIBUTION WIDTH 13.6 % (9.4-14.8)
[2017-12-04 08:13] LABS: ALANINE AMINOTRANSFERASE 20 U/L (12-78); ALBUMIN 3.5 g/dL (3.4-5.0); ANION GAP 9 mmol/L (5-15); CALCIUM 8.2 mg/dL (8.5-10.1); CHLORIDE 110 mmol/L (98-107); CHOLESTEROL, TOTAL 167 mg/dL (140-239); CREATININE 1.51 mg/dL (0.7-1.3); TRIGLYCERIDES 153 mg/dL (50-200); VLDL CHOLESTEROL 31 mg/dL (0-25)
[2017-12-04 08:15] LABS: ALKALINE PHOSPHATASE 111 U/L (45-117); BILIRUBIN,TOTAL 0.5 mg/dL (0.2-1.0); CHOL/HDL RATIO 3.5; HDL CHOL % 29 % (26-37); HDL CHOLESTEROL (DIRECT) 48 mg/dL (40-60); LDL CHOLESTEROL,CALCULATED 88 mg/dL (54-169); LDL/HDL RATIO 1.8 (0.5-3.0); TOTAL PROTEIN 6.9 g/dL (6.4-8.2)
[2017-12-04] MEDS: SENNA/DOCUSATE TABLET PO SCH (09:12)
[2017-12-04] MEDS: VENLAFAXINE 75 MG CAP ER PO SCH (09:13)
[2017-12-04] MEDS: HEPARIN 5,000 UNITS/ML, 1ML IV PRN ×2 (09:15→15:56)
[2017-12-04 11:58] LABS: MICROSCOPIC NOT IND
[2017-12-04 12:00] LABS: CULTURE INDICATED? NO
[2017-12-04 12:15] VITALS: BP 121/80
[2017-12-04] MEDS ORDERED: ERGOCALCIFEROL 50,000 UNIT CAPSULE PO SCH (18:30)
[2017-12-04 18:46] VITALS: BP 123/76
[2017-12-05 00:58] VITALS: BP 113/68
[2017-12-05] MEDS ORDERED: MORPHINE SULFATE 4 MG/ML, 1ML ONE (02:47)
[2017-12-05] MEDS: morphine SULFATE 10 MG/ML, 1ML IVPush PRN (02:53)
[2017-12-05 04:28] LABS: BASOPHILS # (AUTO) 0.03 x10^3/uL (0-0.1); BASOPHILS % (AUTO) 1 % (0-1); EOSINOPHILS # (AUTO) 0.08 x10^3/uL (0-0.4); EOSINOPHILS % (AUTO) 2 % (1-7); LYMPHOCYTES % (AUTO) 33 % (22-44); MD NO; MEAN CORPUSCULAR HEMOGLOBIN 35.1 pg (27.5-34.5); MEAN CORPUSCULAR HGB CONC 34.2 g/dL (33.2-36.2); MEAN CORPUSCULAR VOLUME 102.5 fL (81-97); MONOCYTES # (AUTO) 0.32 x10^3/uL (0.2-0.8); MONOCYTES % (AUTO) 8 % (2-9); NEUTROPHILS # (AUTO) 2.41 x10^3/uL (1.8-6.8); NEUTROPHILS % (AUTO) 57 % (42-75); PLATELET COUNT 108 x10^3/uL (130-400); RED BLOOD COUNT 3.46 x10^6/uL (4.38-5.82); RED CELL DISTRIBUTION WIDTH 13.8 % (9.4-14.8)
[2017-12-05 04:37] LABS: ANION GAP 5 mmol/L (5-15); CHLORIDE 110 mmol/L (98-107); CREATININE 1.47 mg/dL (0.7-1.3)
[2017-12-05] MEDS: OXYcodone IR 5MG TABLET PO PRN ×3 (06:02→16:40)
[2017-12-05 06:43] VITALS: BP 116/71
[2017-12-05] MEDS: VENLAFAXINE 75 MG CAP ER PO SCH (08:07)
[2017-12-05] MEDS: QUETIAPINE 200 MG TABLET PO SCH ×2 (08:07→20:35)
[2017-12-05] MEDS: SENNA/DOCUSATE TABLET PO SCH (09:00)
[2017-12-05] MEDS: HEPARIN 25,000 UNITS/500ML PMX 500 ML IV PRN (10:33)
[2017-12-05 13:08] VITALS: BP 120/79
[2017-12-05] MEDS: DIPHENHYDRAMINE 25 MG CAPSULE PO PRN (15:10)
[2017-12-05 18:35] VITALS: BP 125/78
[2017-12-06 01:28] VITALS: BP 114/76
[2017-12-06] MEDS: OXYcodone IR 5MG TABLET PO PRN ×3 (02:54→16:23)
[2017-12-06 05:26] LABS: BASOPHILS # (AUTO) 0.02 x10^3/uL (0-0.1); BASOPHILS % (AUTO) 0 % (0-1); EOSINOPHILS # (AUTO) 0.09 x10^3/uL (0-0.4); EOSINOPHILS % (AUTO) 2 % (1-7); LYMPHOCYTES # (AUTO) 1.19 x10^3/uL (1-3.4); LYMPHOCYTES % (AUTO) 26 % (22-44); MD NO; MEAN CORPUSCULAR HEMOGLOBIN 34.3 pg (27.5-34.5); MEAN CORPUSCULAR HGB CONC 33.8 g/dL (33.2-36.2); MEAN CORPUSCULAR VOLUME 101.5 fL (81-97); MEAN PLATELET VOLUME 8.2 fL (7.4-10.4); MONOCYTES # (AUTO) 0.36 x10^3/uL (0.2-0.8); MONOCYTES % (AUTO) 8 % (2-9); NEUTROPHILS # (AUTO) 2.95 x10^3/uL (1.8-6.8); NEUTROPHILS % (AUTO) 64 % (42-75); PLATELET COUNT 105 x10^3/uL (130-400); RED BLOOD COUNT 3.55 x10^6/uL (4.38-5.82); RED CELL DISTRIBUTION WIDTH 13.8 % (9.4-14.8)
[2017-12-06] MEDS: HEPARIN 25,000 UNITS/500ML PMX 500 ML IV PRN (05:36)
[2017-12-06 05:38] LABS: ANION GAP 7 mmol/L (5-15); CALCIUM 8.3 mg/dL (8.5-10.1); CHLORIDE 105 mmol/L (98-107); CREATININE 1.51 mg/dL (0.7-1.3)
[2017-12-06] MEDS: HEPARIN 5,000 UNITS/ML, 1ML IV PRN (06:02)
[2017-12-06 06:37] VITALS: BP 108/71
[2017-12-06] MEDS ORDERED: POTASSIUM CHLORIDE 20 MEQ TAB.ER.PRT PO ONE (07:00)
[2017-12-06 08:10] LABS: ANION GAP 6 mmol/L (5-15); CALCIUM 8.5 mg/dL (8.5-10.1); CHLORIDE 105 mmol/L (98-107); CREATININE 1.42 mg/dL (0.7-1.3)
[2017-12-06] MEDS: SENNA/DOCUSATE TABLET PO SCH (08:25)
[2017-12-06] MEDS: QUETIAPINE 200 MG TABLET PO SCH (08:25)
[2017-12-06] MEDS: RIVAROXABAN 15 MG TABLET PO SCH ×2 (08:25→16:23)
[2017-12-06] MEDS: VENLAFAXINE 75 MG CAP ER PO SCH (08:26)
[2017-12-06 13:00] VITALS: BP 113/75
[2017-12-06 13:17] LABS: HIT RESULT NEGATIVE (NEGATIVE)
[2017-12-06] MEDS ORDERED: RIVA15TA PO (13:55)
[2017-12-06] MEDS ORDERED: ERGO500017 PO (13:55)
[2017-12-06] MEDS: DIPHENHYDRAMINE 25 MG CAPSULE PO PRN (16:23)
[2017-12-07] MEDS ORDERED: VENLAFAXINE 75 MG CAP ER PO SCH (09:00)
== END 2017-12-06 16:50 | disposition home or self-care (01) | DRG 299 ==
LOC: ED 22:03 → EDIP 23:16 → 4WST 23:55 → DCLOUNGE 12-06 16:34
PROVIDERS: ADMIT Internal Medicine; ATTEND Internal Medicine
DX: I82.411 Acute embolism and thrombosis of right femoral vein (principal); N17.0 Acute kidney failure with tubular necrosis; D69.6 Thrombocytopenia, unspecified; K70.30 Alcoholic cirrhosis of liver without ascites; N18.3 Chronic kidney disease, stage 3 (moderate); I82.431 Acute embolism and thrombosis of right popliteal vein; D53.9 Nutritional anemia, unspecified; E55.9 Vitamin D deficiency, unspecified; E87.6 Hypokalemia; F32.9 Major depressive disorder, single episode, unspecified; E78.5 Hyperlipidemia, unspecified; F41.9 Anxiety disorder, unspecified; I82.511 Chronic embolism and thrombosis of right femoral vein; I82.531 Chronic embolism and thrombosis of right popliteal vein; Z96.641 Presence of right artificial hip joint; I12.9 Hypertensive chronic kidney disease with stage 1 through stage 4 chronic kidney disease, or unspecified chronic kidney disease; Z86.711 Personal history of pulmonary embolism; Z87.19 Personal history of other diseases of the digestive system; Z91.5 Personal history of self-harm; Z79.899 Other long term (current) drug therapy; Z90.49 Acquired absence of other specified parts of digestive tract; Z83.3 Family history of diabetes mellitus; Z84.1 Family history of disorders of kidney and ureter; Z91.19 Patient's noncompliance with other medical treatment and regimen
CPT/HCPCS: 36415; 80048; 80053; 80061; 81003; 82040; 82306; 82607; 82746; 83735; 85025; 85520; 85730; 86022; 96374; 96376; J1644; J2270; Q0163

== ENCOUNTER 2018-02-01 12:50 | Emergency (ER) | payer MEDICAID ==
[~2018-02-01] VITALS: Ht 182.9 cm; Wt 109.0 kg
[~2018-02-01 12:50] MED LIST changes: +ERGO500017 PO; +WARF10TA43 PO; -WARF10TA6 PO; +WARF7.5T46 PO; -WARF7.5T6 PO
[2018-02-01 13:35] LABS: BASOPHILS # (AUTO) 0.02 x10^3/uL (0-0.1); BASOPHILS % (AUTO) 0 % (0-1); EOSINOPHILS # (AUTO) 0.01 x10^3/uL (0-0.4); EOSINOPHILS % (AUTO) 0 % (1-7); LYMPHOCYTES # (AUTO) 1.08 x10^3/uL (1-3.4); LYMPHOCYTES % (AUTO) 17 % (22-44); MD NO; MEAN CORPUSCULAR HEMOGLOBIN 34.6 pg (27.5-34.5); MEAN CORPUSCULAR HGB CONC 34.3 g/dL (33.2-36.2); MEAN CORPUSCULAR VOLUME 100.8 fL (81-97); MEAN PLATELET VOLUME 7.3 fL (7.4-10.4); MONOCYTES # (AUTO) 0.33 x10^3/uL (0.2-0.8); MONOCYTES % (AUTO) 5 % (2-9); NEUTROPHILS # (AUTO) 5.04 x10^3/uL (1.8-6.8); NEUTROPHILS % (AUTO) 78 % (42-75); PLATELET COUNT 147 x10^3/uL (130-400); RED BLOOD COUNT 4.43 x10^6/uL (4.38-5.82); RED CELL DISTRIBUTION WIDTH 14.4 % (9.4-14.8)
[2018-02-01 13:41] LABS: ALANINE AMINOTRANSFERASE 34 U/L (12-78); ALBUMIN 3.9 g/dL (3.4-5.0); ANION GAP 17 mmol/L (5-15); CALCIUM 8.8 mg/dL (8.5-10.1); CHLORIDE 106 mmol/L (98-107); CREATININE 1.41 mg/dL (0.7-1.3)
[2018-02-01 14:30] LABS: ALKALINE PHOSPHATASE 142 U/L (45-117); BILIRUBIN,TOTAL 1.7 mg/dL (0.2-1.0); TOTAL PROTEIN 8.1 g/dL (6.4-8.2)
[2018-02-01] MEDS ORDERED: LEVOTHYROXINE PO (15:41)
[2018-02-01] MEDS ORDERED: FAMOTIDINE 20 MG/2 ML ONE (16:07)
[2018-02-01] MEDS ORDERED: ONDANSETRON ODT 4 MG ONE (16:07)
[2018-02-01] MEDS ORDERED: MORPHINE SULFATE 4 MG/ML, 1ML ONE (16:07)
[2018-02-01] MEDS ORDERED: ONDANSETRON ODT 4 MG PO ONE (16:30)
[2018-02-01] MEDS ORDERED: SODIUM CHLORIDE 0.9% 1,000ML IVBOLUS ONE (16:30)
[2018-02-01] MEDS ORDERED: SODIUM CHLORIDE FLUSH 10ML SYR IVF ONE (16:30)
[2018-02-01] MEDS ORDERED: FAMOTIDINE 20 MG/2 ML IVPush ONE (16:30)
[2018-02-01] MEDS ORDERED: MORPHINE SULFATE 4 MG/ML, 1ML IVPush PRN (16:30)
[2018-02-01] MEDS ORDERED: MAALOX/HYOSCYAMINE/LIDOCAINE 45 ML BTL ONE (17:15)
[2018-02-01] MEDS ORDERED: MAALOX/HYOSCYAMINE/LIDOCAINE 45 ML BTL PO ONE (17:30)
[2018-02-01 18:17] VITALS: BP 141/92
== END 2018-02-01 18:20 | disposition home or self-care (01) ==
LOC: ED 18:14
DX: K29.20 Alcoholic gastritis without bleeding (principal); F10.10 Alcohol abuse, uncomplicated; I10 Essential (primary) hypertension; F32.9 Major depressive disorder, single episode, unspecified; Z86.711 Personal history of pulmonary embolism; Z86.718 Personal history of other venous thrombosis and embolism; Z90.49 Acquired absence of other specified parts of digestive tract; Z88.0 Allergy status to penicillin
CPT/HCPCS: 36415; 76700; 80053; 83690; 85025; 96361; 96374; 96375; 99285; J7030; Q0162; S0028

== ENCOUNTER 2018-06-13 20:15 | Emergency (ER) | payer MEDICAID ==
[~2018-06-13] VITALS: Ht 182.9 cm; Wt 112.5 kg
[~2018-06-13 20:15] MED LIST changes: +LEVOTHYROXINE PO; +OXYC-432 PO; -OXYC1TAB9 PO; -THIA100T6 PO; +THIA100T67 PO
[2018-06-13 20:48] LABS: MEAN CORPUSCULAR HEMOGLOBIN 35.3 pg (27.5-34.5); MEAN CORPUSCULAR HGB CONC 35.1 g/dL (33.2-36.2); MEAN CORPUSCULAR VOLUME 100.5 fL (81-97); RED BLOOD COUNT 4.21 x10^6/uL (4.38-5.82); RED CELL DISTRIBUTION WIDTH 14.9 % (9.4-14.8)
[2018-06-13 20:53] LABS: ALANINE AMINOTRANSFERASE 75 U/L (12-78); ALBUMIN 3.9 g/dL (3.4-5.0); ANION GAP 16 mmol/L (5-15); CALCIUM 8.5 mg/dL (8.5-10.1); CHLORIDE 102 mmol/L (98-107); CREATININE 1.47 mg/dL (0.7-1.3)
[2018-06-13 20:55] LABS: ALKALINE PHOSPHATASE 125 U/L (45-117); BILIRUBIN,TOTAL 1.2 mg/dL (0.2-1.0); TOTAL PROTEIN 8.3 g/dL (6.4-8.2)
[2018-06-13 21:07] LABS: MEAN PLATELET VOLUME 6.8 fL (7.4-10.4); PLATELET COUNT 90 x10^3/uL (130-400)
[2018-06-13 21:08] LABS: MD YES
[2018-06-13 21:10] LABS: EOS#(MANUAL) 0.18 x10^3/uL (0.0-0.4); EOS% (MANUAL) 2 % (1-7); LYMPH#(MANUAL) 1.27 x10^3/uL (1-3.4); LYMPHS% (MANUAL) 14 % (22-44); MONOS#(MANUAL) 0.46 x10^3/uL (0.3-2.7); MONOS% (MANUAL) 5 % (2-9); SEG#(MANUAL) 7.19 x10^3/uL (1.8-6.8); SEGS% (MANUAL) 79 % (42-75)
[2018-06-13 21:12] LABS: <PLATELET ESTIMATE> DECREASED; <PLT MORPHOLOGY> NORMAL PLT MORPH
[2018-06-13] MEDS ORDERED: MAALOX/HYOSCYAMINE/LIDOCAINE 45 ML BTL ONE (23:45)
[2018-06-13] MEDS ORDERED: OXYcodone/APAP 5/325MG TABLET ONE (23:53)
[2018-06-13 23:55] VITALS: BP 143/87
[2018-06-14] MEDS ORDERED: MAALOX/HYOSCYAMINE/LIDOCAINE 45 ML BTL PO ONE
[2018-06-14] MEDS ORDERED: OXYcodone/APAP 5/325MG TABLET PO ONE
== END 2018-06-14 00:15 | disposition home or self-care (01) ==
LOC: ED 22:58
DX: K85.20 Alcohol induced acute pancreatitis without necrosis or infection (principal); I10 Essential (primary) hypertension; E78.5 Hyperlipidemia, unspecified; F32.9 Major depressive disorder, single episode, unspecified; Z86.718 Personal history of other venous thrombosis and embolism; Z90.49 Acquired absence of other specified parts of digestive tract
CPT/HCPCS: 36415; 80053; 83690; 85025; 93005; 99285

== ENCOUNTER 2019-02-18 20:34 | Emergency (ER) | payer MEDICAID ==
[~2019-02-18] VITALS: Ht 185.4 cm; Wt 105.0 kg
--- NOTE | 2019-02-18 20:46 | NUR ---
PT BIB [facility] WITH C/O CP X 3 HOURS PLACED ON ALL MONITORS AND PIV PLACED IN NAD
[2019-02-18] MEDS ORDERED: ASPIRIN 81 MG TABLET CHEW PO ONE (21:00)
[2019-02-18] MEDS ORDERED: SODIUM CHLORIDE FLUSH 10ML SYR IVF ONE (21:00)
[2019-02-18] MEDS ORDERED: ASPIRIN 81 MG TABLET CHEW ONE (21:08)
[2019-02-18] MEDS ORDERED: MORPHINE SULFATE 4 MG/ML, 1ML ONE (21:08)
[2019-02-18] MEDS: MORPHINE SULFATE 4 MG/ML, 1ML IVPush PRN (21:12)
[2019-02-18 21:14] LABS: BASOPHILS # (AUTO) 0.03 x10^3/uL (0-0.1); BASOPHILS % (AUTO) 1 % (0-1); EOSINOPHILS # (AUTO) 0.07 x10^3/uL (0-0.4); EOSINOPHILS % (AUTO) 2 % (1-7); LYMPHOCYTES # (AUTO) 1.19 x10^3/uL (1-3.4); LYMPHOCYTES % (AUTO) 27 % (22-44); MD NO; MEAN CORPUSCULAR HEMOGLOBIN 34.9 pg (27.5-34.5); MEAN CORPUSCULAR HGB CONC 34.2 g/dL (33.2-36.2); MONOCYTES # (AUTO) 0.36 x10^3/uL (0.2-0.8); MONOCYTES % (AUTO) 8 % (2-9); NEUTROPHILS # (AUTO) 2.68 x10^3/uL (1.8-6.8); NEUTROPHILS % (AUTO) 62 % (42-75); PLATELET COUNT 126 x10^3/uL (130-400); RED BLOOD COUNT 2.74 x10^6/uL (4.38-5.82); RED CELL DISTRIBUTION WIDTH 13.9 % (9.4-14.8)
[2019-02-18 21:24] LABS: ALANINE AMINOTRANSFERASE 32 U/L (12-78); ALBUMIN 3.2 g/dL (3.4-5.0); ANION GAP 7 mmol/L (5-15); CALCIUM 8.1 mg/dL (8.5-10.1); CHLORIDE 105 mmol/L (98-107); CREATININE 1.38 mg/dL (0.7-1.3)
[2019-02-18 21:28] LABS: ALKALINE PHOSPHATASE 121 U/L (45-117); BILIRUBIN,TOTAL 0.5 mg/dL (0.2-1.0); TOTAL PROTEIN 6.9 g/dL (6.4-8.2); TROPONIN I < 0.015 ng/mL (0.000-0.045)
--- NOTE | 2019-02-18 22:55 | NUR ---
pt resting in bed in nad
[2019-02-18 23:55] LABS: TROPONIN I < 0.015 ng/mL (0.000-0.045)
[2019-02-19] MEDS: MORPHINE SULFATE 4 MG/ML, 1ML IVPush PRN (00:07)
[2019-02-19 00:08] VITALS: BP 123/75
--- NOTE | 2019-02-19 01:07 | NUR ---
TASK RN: SPO2 >90% ON RA. RR WNL. PT REPORTS 'LITTLE' IMPROVEMENT IN PAIN. DC EDUCAITON PROVIDED, PT DEMONSTRATES UNDERSTANDING. PT AMBULATORY WITH EASE AND WO ASSISTANCE. PT REFUSING TAXI VOUCHER, STATES 'I JUST LIVE AROUND THE CORNER'
== END 2019-02-19 01:10 | disposition home or self-care (01) ==
LOC: ED 21:08
DX: R07.89 Other chest pain (principal); S30.1XXA Contusion of abdominal wall, initial encounter; X58.XXXA Exposure to other specified factors, initial encounter; Y93.89 Activity, other specified; Y92.89 Other specified places as the place of occurrence of the external cause; Y99.8 Other external cause status; F32.9 Major depressive disorder, single episode, unspecified; Z86.718 Personal history of other venous thrombosis and embolism; E78.5 Hyperlipidemia, unspecified; Z72.9 Problem related to lifestyle, unspecified; I10 Essential (primary) hypertension
CPT/HCPCS: 36415; 71046; 80053; 84484; 85025; 93005; 96374; 96376; 99284; J2270

== ENCOUNTER 2019-03-11 22:28 | Emergency (ER) | payer MEDICAID ==
[~2019-03-11] VITALS: Ht 182.9 cm; Wt 103.2 kg
[2019-03-11] MEDS ORDERED: SODIUM CHLORIDE 0.9% 1,000ML IVBOLUS ONE (23:00)
[2019-03-11] MEDS ORDERED: OMNIPAQUE 350 MG/ML, 100ML BOTTLE ONE (23:00)
[2019-03-11] MEDS ORDERED: ONDANSETRON 2MG/ML, 2ML IVPush ONE (23:00)
[2019-03-11] MEDS ORDERED: SODIUM CHLORIDE FLUSH 10ML SYR IVF ONE (23:00)
[2019-03-11] MEDS ORDERED: ONDANSETRON 2MG/ML, 2ML ONE (23:16)
[2019-03-11] MEDS ORDERED: HYDROmorphone 2 MG/ML, 1ML ONE (23:16)
[2019-03-11] MEDS: HYDROmorphone 2 MG/ML, 1ML IVPush PRN (23:21)
[2019-03-11 23:24] LABS: BASOPHILS # (AUTO) 0.02 x10^3/uL (0-0.1); BASOPHILS % (AUTO) 0 % (0-1); EOSINOPHILS # (AUTO) 0.16 x10^3/uL (0-0.4); EOSINOPHILS % (AUTO) 2 % (1-7); LYMPHOCYTES # (AUTO) 1.22 x10^3/uL (1-3.4); LYMPHOCYTES % (AUTO) 17 % (22-44); MD NO; MEAN CORPUSCULAR HEMOGLOBIN 33.3 pg (27.5-34.5); MEAN CORPUSCULAR HGB CONC 32.8 g/dL (33.2-36.2); MEAN CORPUSCULAR VOLUME 101.5 fL (81-97); MEAN PLATELET VOLUME 6.7 fL (7.4-10.4); MONOCYTES # (AUTO) 0.46 x10^3/uL (0.2-0.8); MONOCYTES % (AUTO) 7 % (2-9); NEUTROPHILS # (AUTO) 5.14 x10^3/uL (1.8-6.8); NEUTROPHILS % (AUTO) 73 % (42-75); PLATELET COUNT 179 x10^3/uL (130-400); RED BLOOD COUNT 3.26 x10^6/uL (4.38-5.82)
--- NOTE | 2019-03-11 23:27 | NUR ---
PT IN GOWN IN [facility]. PT ATTACHED TO VS AND CARDIAC MONITORS. VSS AT THIS TIME. PT EDUCATED ON ER PROCESS AND POC AND VERBALIZES UNDERSTANDING. CALL LIGHT IS WITHIN REACH. IV ACCESS ESTABLISHED AND PT MEDICATED PER OCT. LABS COLLECTED AND SENT TO LAB AT THIS TIME. PT DENIES ANY OTHER NEEDS.
[2019-03-11 23:36] LABS: INTERNATIONAL NORMALIZED RATIO 1.04 (0.93-1.1); PROTHROMBIN TIME 10.9 Seconds (9.6-11.5)
[2019-03-11 23:37] LABS: ALANINE AMINOTRANSFERASE 21 U/L (12-78); ALBUMIN 3.4 g/dL (3.4-5.0); ANION GAP 12 mmol/L (5-15); CALCIUM 8.6 mg/dL (8.5-10.1); CHLORIDE 106 mmol/L (98-107); CREATININE 1.58 mg/dL (0.7-1.3)
[2019-03-11 23:41] LABS: ALKALINE PHOSPHATASE 191 U/L (45-117); BILIRUBIN,TOTAL 0.4 mg/dL (0.2-1.0); TROPONIN I < 0.015 ng/mL (0.000-0.045)
--- NOTE | 2019-03-11 23:48 | NUR ---
PT TO CT VIA [facility] AT THIS TIME.
--- NOTE | 2019-03-12 00:03 | NUR ---
BREAK RN FOR PRIMARY RN BILLIE, REPORT AND CARE RECEIVED. PT BACK FROM CT. A&OX4. REPORTS 9/10 PAIN "ON MY SIDE WHERE MY CHEST TUBE WAS AND IN MY BACK, FEELS LIKE I'MN BEING SLUGGED WITH A BAT." PT REQUESTING ADDITIONAL PAIN MEDICATION. TO DISCUSS WITH ERP. VSS. ST ON MONITOR. CALL LIGHT IN REACH. FALL PRECAUTIONS IN PLACE. SIDE RAILS UPX2. PT RESTING IN POSITION OF COMFORT, WATCHING TV. DENIES NEED TO USE RESTROOM.
[2019-03-12] MEDS ORDERED: HYDROmorphone 2 MG/ML, 1ML ONE (00:21)
[2019-03-12] MEDS: HYDROmorphone 2 MG/ML, 1ML IVPush PRN (00:26)
--- NOTE | 2019-03-12 00:26 | NUR ---
DISCUSSD PAIN WITH DR. HANLEY, PT MEDICATED NOTED PER MD ORDER AND PT REQUEST WITH ADDITIONAL DILAUDID. RATES PAIN 05/01. IVF CONTINUE INFUSING PER ORDER. VSS. ST ON MONITOR. CALL LIGHT IN REACH
--- NOTE | 2019-03-12 00:59 | NUR ---
BEDSIDE REPORT AND CARE BACK TO PRIMARY RN BILLIE, PT REPORTS PAIN IMPROVED TO 6-7/10 "IT'S BETTER BUT STILL FEELS LIKE I'M BEING HIT IN THE BACK AND OF COURSE WHERE THE CHEST TUBE WAS I JUST SORE." VSS. CALL LIGHT IN REACH.
--- NOTE | 2019-03-12 01:14 | NUR ---
Pt report from Sean freeman. This rn to assume care of pt. Resting comfortably on gurney. Nadn. Rr even and unlabored.
[2019-03-12 01:34] VITALS: BP 136/88
== END 2019-03-12 02:03 | disposition home or self-care (01) ==
LOC: ED 23:18
DX: S22.43XA Multiple fractures of ribs, bilateral, initial encounter for closed fracture (principal); R07.1 Chest pain on breathing; R79.89 Other specified abnormal findings of blood chemistry; R91.8 Other nonspecific abnormal finding of lung field; I10 Essential (primary) hypertension; Z86.718 Personal history of other venous thrombosis and embolism; X58.XXXA Exposure to other specified factors, initial encounter; Y93.89 Activity, other specified; Y92.89 Other specified places as the place of occurrence of the external cause; Y99.8 Other external cause status
CPT/HCPCS: 36415; 71045; 71275; 80053; 84484; 85025; 85610; 85730; 93005; 96374; 96375; 96376; 99284; J1170; J2405; J7030; Q9967

== ENCOUNTER 2019-03-22 07:00 | Emergency (ER) | payer MEDICAID ==
[~2019-03-22] VITALS: Ht 182.9 cm; Wt 99.0 kg
--- NOTE | 2019-03-22 07:16 | NUR ---
PT WITH C/O NOT BEING ABLE TO TAKE A DEEP BREATH WITHOUT L SIDED CHEST DISCOMFORT FOR 4 DAYS. PT WITH HX OF CHEST TUBE 2 WEEKS AGO D/T TRAUMA FROM A FALL. PT STATES THEY TOOK 2L OF BLOOD OFF HIS CHEST AT THAT TIME. NIBP, CONT PULSE OX, CARD MONITOR PLACED.
[2019-03-22] MEDS ORDERED: SODIUM CHLORIDE FLUSH 10ML SYR IVF ONE (08:00)
[2019-03-22] MEDS ORDERED: KETOROLAC 30 MG/1 ML IVPush ONE (08:00)
[2019-03-22] MEDS ORDERED: ONDANSETRON 2MG/ML, 2ML IVPush ONE (08:00)
[2019-03-22] MEDS ORDERED: KETOROLAC 30 MG/1 ML ONE (08:22)
[2019-03-22] MEDS ORDERED: ONDANSETRON 2MG/ML, 2ML ONE (08:22)
[2019-03-22 08:24] LABS: BASOPHILS # (AUTO) 0.03 x10^3/uL (0-0.1); BASOPHILS % (AUTO) 1 % (0-1); EOSINOPHILS # (AUTO) 0.02 x10^3/uL (0-0.4); EOSINOPHILS % (AUTO) 0 % (1-7); LYMPHOCYTES # (AUTO) 1.34 x10^3/uL (1-3.4); LYMPHOCYTES % (AUTO) 26 % (22-44); MD NO; MEAN CORPUSCULAR HEMOGLOBIN 32.2 pg (27.5-34.5); MEAN CORPUSCULAR VOLUME 97.8 fL (81-97); MEAN PLATELET VOLUME 7.1 fL (7.4-10.4); MONOCYTES # (AUTO) 0.33 x10^3/uL (0.2-0.8); MONOCYTES % (AUTO) 6 % (2-9); NEUTROPHILS # (AUTO) 3.55 x10^3/uL (1.8-6.8); NEUTROPHILS % (AUTO) 67 % (42-75); PLATELET COUNT 133 x10^3/uL (130-400); RED BLOOD COUNT 3.61 x10^6/uL (4.38-5.82); RED CELL DISTRIBUTION WIDTH 14.9 % (9.4-14.8)
[2019-03-22 08:29] LABS: ALBUMIN 3.6 g/dL (3.4-5.0); ANION GAP 8 mmol/L (5-15); CALCIUM 8.5 mg/dL (8.5-10.1); CHLORIDE 109 mmol/L (98-107); CREATININE 1.22 mg/dL (0.7-1.3)
--- NOTE | 2019-03-22 08:29 | NUR ---
PIV INITIATED, PT MEDICATED PER OCT. PT TO GO TO CT
--- NOTE | 2019-03-22 09:04 | NUR ---
SUNI RN: PT REQUESTING ADDITIONAL PAIN MEDICATIONS. RN TO MEDICATE PT PER EMAR.
[2019-03-22] MEDS ORDERED: MORPHINE SULFATE 4 MG/ML, 1ML ONE ×2 (09:05→09:54)
[2019-03-22] MEDS ORDERED: OMNIPAQUE 350 MG/ML, 100ML BOTTLE ONE (09:06)
[2019-03-22] MEDS: MORPHINE SULFATE 4 MG/ML, 1ML IVPush PRN ×2 (09:07→09:56)
--- NOTE | 2019-03-22 09:08 | NUR ---
SUNI RN: PT MEDICATED FOR 10/10 CHEST PAIN PER EMAR.
[2019-03-22 09:58] VITALS: BP 124/76
--- NOTE | 2019-03-22 10:01 | NUR ---
PT MEDICATED PER MAR/PROVIDER ORDER. PT TO BE DISCHARGED, WILL MONITOR FOR ADVERSE REACTION PRIOR TO D/C
--- NOTE | 2019-03-22 11:03 | NUR ---
Patient/Caregiver given discharge instructions and they have confirmed that they understand the instructions. Patient ambulatory with steady gait.
== END 2019-03-22 10:34 | disposition home or self-care (01) ==
LOC: ED 07:34
DX: R07.89 Other chest pain (principal); I10 Essential (primary) hypertension; E78.5 Hyperlipidemia, unspecified
CPT/HCPCS: 36415; 71275; 80048; 82040; 85025; 93005; 96374; 96375; 96376; 99284; J1885; J2270; J2405; Q9967

== ENCOUNTER 2019-08-29 01:53 | Inpatient (IN) | payer MEDICAID, OTHER ==
[~2019-08-29] VITALS: Ht 182.9 cm; Wt 112.8 kg
--- NOTE | 2019-08-29 01:55 | NUR ---
BIB [facility] FROM HOME FOR SUBSTERNAL CHEST PRESSURE ONSET AT 2130. RADIATES "THROUGH TO BACK". ONSET WHILE AT REST. BRIEF, MILD RELIEF WITH FENTANYL HEADWAITER/HEADWAITRESS. PT ALSO CO GENERALIZED ABD PAIN X 0140. +NAUSEA. DENIES SOB/PRODUCTIVE COUGH/RECENT ILLNESS/EDEMA. IRREGULAR RHYTHM ON MONITOR, HR 110-125. DENIES CARDIAC OR PULM HX. HX OF ESOPHAGEAL VARICIES. BP/SPO2/ECG MONITORING IN PLACE. BP EQUAL BILAT. GIVEN ZOFRAN, NITRO, FENTANYL, & ASA BY EMS HEADWAITER/HEADWAITRESS
[2019-08-29] MEDS ORDERED: PANTOPRAZOLE 40 MG IV ONE (02:25)
[2019-08-29] MEDS ORDERED: ONDANSETRON 2MG/ML, 2ML ONE (02:25)
[2019-08-29] MEDS ORDERED: MORPHINE SULFATE 4 MG/ML, 1ML ONE ×2 (02:25→03:23)
[2019-08-29] MEDS ORDERED: ONDANSETRON 2MG/ML, 2ML IVPush ONE (02:30)
[2019-08-29] MEDS ORDERED: PANTOPRAZOLE 40 MG IV IVPush ONE (02:30)
[2019-08-29] MEDS: MORPHINE SULFATE 4 MG/ML, 1ML IVPush PRN ×2 (02:41→03:26)
[2019-08-29 03:01] LABS: ALANINE AMINOTRANSFERASE 197 U/L (12-78); ALBUMIN 3.6 g/dL (3.4-5.0); ANION GAP 12 mmol/L (5-15); CALCIUM 9.1 mg/dL (8.5-10.1); CHLORIDE 103 mmol/L (98-107); CREATININE 1.13 mg/dL (0.7-1.3)
[2019-08-29 03:06] LABS: ALKALINE PHOSPHATASE 147 U/L (45-117); TOTAL PROTEIN 7.8 g/dL (6.4-8.2); TROPONIN I < 0.015 ng/mL (0.000-0.045)
[2019-08-29 03:22] LABS: BASOPHILS # (AUTO) 0.01 x10^3/uL (0-0.1); BASOPHILS % (AUTO) 0 % (0-1); EOSINOPHILS # (AUTO) 0.01 x10^3/uL (0-0.4); EOSINOPHILS % (AUTO) 0 % (1-7); LYMPHOCYTES # (AUTO) 0.53 x10^3/uL (1-3.4); LYMPHOCYTES % (AUTO) 20 % (22-44); MD MORPH REVIEW ONLY; MEAN CORPUSCULAR HEMOGLOBIN 33.7 pg (27.5-34.5); MEAN CORPUSCULAR HGB CONC 33.2 g/dL (33.2-36.2); MEAN CORPUSCULAR VOLUME 101.5 fL (81-97); MONOCYTES % (AUTO) 7 % (2-9); NEUTROPHILS % (AUTO) 72 % (42-75); RED CELL DISTRIBUTION WIDTH 18.3 % (9.4-14.8)
[2019-08-29 03:23] LABS: MEAN PLATELET VOLUME 9.3 fL (7.4-10.4)
[2019-08-29 03:24] LABS: <PLATELET ESTIMATE> DECREASED; <RBC MORPHOLOGY> NORMAL; HYPOGRAN PLTS 1+; SMALL PLATELETS 1+
[2019-08-29 03:26] LABS: PLATELET COUNT 22 x10^3/uL (130-400)
--- NOTE | 2019-08-29 03:27 | NUR ---
PT MEDICATED PER OCT. PO DISCUSSED. PT DENIES FURTHER NEEDS AT THIS TIME.
[2019-08-29] MEDS ORDERED: SODIUM CHLORIDE 0.9% 1,000ML IVBOLUS ONE (03:30)
[2019-08-29] MEDS ORDERED: LORazepam 2 MG/ML, 1ML ONE ×2 (03:40→04:16)
--- NOTE | 2019-08-29 03:58 | NUR ---
[facility] on closed divert. [facility] not accepting
[2019-08-29] MEDS ORDERED: LORazepam 2 MG/ML, 1ML IVPush ONE ×2 (04:00→04:30)
--- NOTE | 2019-08-29 04:19 | NUR ---
BARTOLO RN: PT MEDICATED PER EMAR FOR TREMOR. PT REPORTS CONTINUED ABD PAIN, 05/01. DENIES CP.
--- NOTE | 2019-08-29 04:27 | NUR ---
TASK RN: PT SITTING UP IN [facility] TEXTING ON CELL PHONE. NAD NOTED.
[2019-08-29] MEDS ORDERED: ONDANSETRON ODT 4 MG PO PRN (04:30)
[2019-08-29] MEDS ORDERED: hydrALAzine 20 MG/ML, 1ML IVPush PRN (04:30)
[2019-08-29] MEDS ORDERED: BISACODYL 10 MG SUPP PR PRN (04:30)
[2019-08-29] MEDS ORDERED: ONDANSETRON 2MG/ML, 2ML IVPush PRN (04:30)
[2019-08-29] MEDS ORDERED: POLYETHYLENE GLYCOL 17 GM PACKET PO PRN (04:30)
[2019-08-29] MEDS ORDERED: PROMETHAZINE 25 MG/ML, 1ML IM PRN (04:30)
[2019-08-29] MEDS ORDERED: DOCUSATE 100 MG CAPSULE PO PRN (04:30)
[2019-08-29] MEDS ORDERED: LORazepam 2 MG/ML, 1ML IV PRN ×4 (05:00)
[2019-08-29] MEDS ORDERED: LORazepam 1MG TABLET PO PRN ×2 (05:00)
[2019-08-29 05:31] LABS: INTERNATIONAL NORMALIZED RATIO 0.92 (0.93-1.1); PROTHROMBIN TIME 9.7 Seconds (9.6-11.5)
[2019-08-29] MEDS: SODIUM CHLORIDE 0.9% 1,000 ML IV SCH ×3 (05:50→19:40)
[2019-08-29 05:57] VITALS: BP 191/95
[2019-08-29 06:08] LABS: FREE T4 (FREE THYROXINE) 0.88 ng/dL (0.76-1.46)
[2019-08-29] MEDS: morphine SULFATE 10 MG/ML, 1ML IVPush PRN ×5 (06:39→19:40)
[2019-08-29 06:52] VITALS: BP 148/87
[2019-08-29] MEDS: VENLAFAXINE 75 MG CAP ER PO SCH (08:01)
[2019-08-29] MEDS: FOLIC ACID 1 MG TABLET PO SCH (08:01)
[2019-08-29] MEDS: THIAMINE 100MG TABLET PO SCH (08:01)
[2019-08-29] MEDS: QUETIAPINE 200 MG TABLET PO SCH ×2 (08:01→20:04)
[2019-08-29] MEDS: MULTIVITAMIN 1 TABLET PO SCH (08:02)
[2019-08-29] MEDS: SUCRALFATE 1 GM/10 ML UDC PO SCH ×4 (08:02→20:03)
[2019-08-29] MEDS: OXYcodone IR 5MG TABLET PO PRN (08:10)
[2019-08-29] MEDS: LORazepam 1MG TABLET PO PRN ×2 (10:19→12:34)
[2019-08-29] MEDS: CHLORDIAZEPOXIDE 25 MG CAPSULE PO SCH ×3 (11:55→20:04)
[2019-08-29 12:28] VITALS: BP 157/88
[2019-08-29 14:45] VITALS: BP 164/105
[2019-08-29] MEDS: LORazepam 2 MG/ML, 1ML IV PRN (15:05)
[2019-08-29] MEDS: PANTOPRAZOLE 40 MG IV IVPush SCH (15:45)
[2019-08-29 15:54] VITALS: BP 168/93
[2019-08-29] MEDS: LORazepam 0.5MG TABLET PO PRN ×2 (16:36→18:32)
[2019-08-29 19:25] VITALS: BP 156/97
[2019-08-30 00:55] VITALS: BP 142/94
[2019-08-30] MEDS: morphine SULFATE 10 MG/ML, 1ML IVPush PRN ×2 (01:02→05:29)
[2019-08-30] MEDS: LORazepam 0.5MG TABLET PO PRN (01:10)
[2019-08-30] MEDS: PANTOPRAZOLE 40 MG IV IVPush SCH ×2 (03:03→15:12)
[2019-08-30] MEDS: SODIUM CHLORIDE 0.9% 1,000 ML IV SCH ×3 (03:21→16:21)
[2019-08-30] MEDS: CHLORDIAZEPOXIDE 25 MG CAPSULE PO SCH ×4 (05:28→21:24)
[2019-08-30 05:58] LABS: MEAN CORPUSCULAR HEMOGLOBIN 34.1 pg (27.5-34.5); MEAN CORPUSCULAR HGB CONC 33.6 g/dL (33.2-36.2); MEAN CORPUSCULAR VOLUME 101.3 fL (81-97); RED BLOOD COUNT 3.26 x10^6/uL (4.38-5.82); RED CELL DISTRIBUTION WIDTH 17.5 % (9.4-14.8)
[2019-08-30 06:04] LABS: CHLORIDE 100 mmol/L (98-107)
[2019-08-30 06:12] LABS: ALANINE AMINOTRANSFERASE 155 U/L (12-78); ALBUMIN 3.2 g/dL (3.4-5.0); ALKALINE PHOSPHATASE 137 U/L (45-117); ANION GAP 8 mmol/L (5-15); BILIRUBIN,TOTAL 1.9 mg/dL (0.2-1.0); CALCIUM 8.1 mg/dL (8.5-10.1); CHOL/HDL RATIO 2.2; CHOLESTEROL, TOTAL 314 mg/dL (140-239); CREATININE 1.21 mg/dL (0.7-1.3); HDL CHOL % 45 % (26-37); HDL CHOLESTEROL (DIRECT) 142 mg/dL (40-60); LDL CHOLESTEROL,CALCULATED 152 mg/dL (54-169); LDL/HDL RATIO 1.1 (0.5-3.0); TOTAL PROTEIN 6.7 g/dL (6.4-8.2); TRIGLYCERIDES 98 mg/dL (50-200); VLDL CHOLESTEROL 20 mg/dL (0-25)
[2019-08-30 06:24] LABS: MEAN PLATELET VOLUME 8.3 fL (7.4-10.4)
[2019-08-30 06:27] LABS: BASOPHILS % (AUTO) 0 % (0-1); EOSINOPHILS # (AUTO) 0.01 x10^3/uL (0-0.4); EOSINOPHILS % (AUTO) 1 % (1-7); LYMPHOCYTES # (AUTO) 0.43 x10^3/uL (1-3.4); LYMPHOCYTES % (AUTO) 17 % (22-44); MD SCAN; MONOCYTES # (AUTO) 0.26 x10^3/uL (0.2-0.8); MONOCYTES % (AUTO) 10 % (2-9); NEUTROPHILS # (AUTO) 1.83 x10^3/uL (1.8-6.8); NEUTROPHILS % (AUTO) 72 % (42-75)
[2019-08-30 06:29] LABS: PLATELET COUNT 12 x10^3/uL (130-400)
[2019-08-30 07:50] VITALS: BP 145/97
[2019-08-30] MEDS ORDERED: MAGNESIUM SULFATE PMX 2GM/50ML 50 ML IV ONE (09:30)
[2019-08-30] MEDS: HYDROmorphone 2 MG/ML, 1ML IVPush PRN (09:36)
[2019-08-30] MEDS: SUCRALFATE 1 GM/10 ML UDC PO SCH ×4 (09:36→21:23)
[2019-08-30] MEDS: FOLIC ACID 1 MG TABLET PO SCH (09:37)
[2019-08-30] MEDS: VENLAFAXINE 75 MG CAP ER PO SCH (09:37)
[2019-08-30] MEDS: THIAMINE 100MG TABLET PO SCH (09:37)
[2019-08-30] MEDS: QUETIAPINE 200 MG TABLET PO SCH ×2 (09:37→21:23)
[2019-08-30] MEDS: MULTIVITAMIN 1 TABLET PO SCH (09:37)
[2019-08-30 12:48] VITALS: BP 128/79
[2019-08-30] MEDS ORDERED: MAALOX/HYOSCYAMINE/LIDOCAINE 45 ML BTL PO ONE (16:00)
[2019-08-30 17:13] LABS: BILIRUBIN, DIRECT 0.9 mg/dL (0.1-0.2); BILIRUBIN,INDIRECT 1.1 mg/dL (0.0-2.0)
[2019-08-30] MEDS ORDERED: OMNIPAQUE 350 MG/ML, 100ML BOTTLE ONE (19:14)
[2019-08-30 19:35] VITALS: BP 150/80
[2019-08-30] MEDS: BISACODYL 10 MG SUPP PR SCH (21:23)
[2019-08-30] MEDS: OXYcodone IR 5MG TABLET PO PRN (21:23)
[2019-08-30] MEDS: PROPRANOLOL 10 MG TABLET PO SCH (21:24)
[2019-08-30] MEDS: CEFTRIAXONE PMX 1GM/50ML 50 ML IV SCH (21:24)
[2019-08-30] MEDS: AZITHROMYCIN 500 MG in SODIUM CHLORIDE 0.9% 250 ML IV SCH (22:25)
[2019-08-31 01:26] VITALS: BP 112/72
[2019-08-31] MEDS: PANTOPRAZOLE 40 MG IV IVPush SCH ×2 (02:31→14:18)
[2019-08-31] MEDS: SODIUM CHLORIDE 0.9% 1,000 ML IV SCH ×2 (02:32→08:12)
[2019-08-31 05:30] VITALS: BP 122/73
[2019-08-31] MEDS: OXYcodone IR 5MG TABLET PO PRN (05:31)
[2019-08-31] MEDS: PROPRANOLOL 10 MG TABLET PO SCH ×3 (05:32→22:16)
[2019-08-31] MEDS: CHLORDIAZEPOXIDE 25 MG CAPSULE PO SCH (05:32)
[2019-08-31 06:55] LABS: CLOSTRIDIUM DIFFICILE TOXIN NEGATIVE (Negative)
[2019-08-31 06:57] LABS: CLOSTRIDIUM DIFFICILE ANTIGEN POSITIVE
[2019-08-31] MEDS: SUCRALFATE 1 GM/10 ML UDC PO SCH ×4 (08:10→20:39)
[2019-08-31] MEDS: THIAMINE 100MG TABLET PO SCH (08:11)
[2019-08-31] MEDS: VENLAFAXINE 75 MG CAP ER PO SCH (08:11)
[2019-08-31] MEDS: QUETIAPINE 200 MG TABLET PO SCH ×2 (08:11→20:40)
[2019-08-31] MEDS: MULTIVITAMIN 1 TABLET PO SCH (08:11)
[2019-08-31] MEDS: FOLIC ACID 1 MG TABLET PO SCH (08:11)
[2019-08-31 08:33] VITALS: BP 129/80
[2019-08-31 09:23] LABS: ALANINE AMINOTRANSFERASE 119 U/L (12-78); ALBUMIN 3.3 g/dL (3.4-5.0); ANION GAP 6 mmol/L (5-15); CALCIUM 8.1 mg/dL (8.5-10.1); CHLORIDE 104 mmol/L (98-107); CREATININE 1.13 mg/dL (0.7-1.3)
[2019-08-31 09:26] LABS: ALKALINE PHOSPHATASE 137 U/L (45-117); BILIRUBIN,TOTAL 1.6 mg/dL (0.2-1.0); TOTAL PROTEIN 7.1 g/dL (6.4-8.2)
[2019-08-31 09:50] LABS: MEAN CORPUSCULAR HEMOGLOBIN 34.4 pg (27.5-34.5); MEAN CORPUSCULAR HGB CONC 33.3 g/dL (33.2-36.2); MEAN CORPUSCULAR VOLUME 103.6 fL (81-97); MEAN PLATELET VOLUME 10.1 fL (7.4-10.4); RED BLOOD COUNT 3.23 x10^6/uL (4.38-5.82); RED CELL DISTRIBUTION WIDTH 17.1 % (9.4-14.8)
[2019-08-31 09:58] LABS: PLATELET COUNT 15 x10^3/uL (130-400)
[2019-08-31 10:01] LABS: BASOPHILS % (AUTO) 0 % (0-1); EOSINOPHILS # (AUTO) 0.03 x10^3/uL (0-0.4); EOSINOPHILS % (AUTO) 1 % (1-7); LYMPHOCYTES # (AUTO) 0.56 x10^3/uL (1-3.4); LYMPHOCYTES % (AUTO) 17 % (22-44); MD SCAN; MONOCYTES # (AUTO) 0.21 x10^3/uL (0.2-0.8); MONOCYTES % (AUTO) 6 % (2-9); NEUTROPHILS # (AUTO) 2.53 x10^3/uL (1.8-6.8); NEUTROPHILS % (AUTO) 76 % (42-75)
[2019-08-31] MEDS: LORazepam 2 MG/ML, 1ML IV PRN ×2 (11:08→16:52)
[2019-08-31] MEDS: HYDROmorphone 2 MG/ML, 1ML IVPush PRN ×2 (14:18→20:40)
[2019-08-31 14:29] VITALS: BP 124/86
[2019-08-31] MEDS ORDERED: POTASSIUM CHLORIDE 20 MEQ TAB.ER.PRT PO ONE (15:00)
[2019-08-31] MEDS: VANCOMYCIN 50 MG/ML ORAL SUSP PO SCH ×2 (15:46→22:16)
[2019-08-31] MEDS: LACTOBACILLUS CHEW TABLET PO SCH ×2 (15:46→20:40)
[2019-08-31 19:46] VITALS: BP 129/79
[2019-08-31] MEDS: CEFTRIAXONE PMX 1GM/50ML 50 ML IV SCH (20:46)
[2019-08-31] MEDS: BISACODYL 10 MG SUPP PR SCH (21:00)
[2019-08-31] MEDS: LORazepam 1MG TABLET PO PRN (22:16)
[2019-08-31] MEDS: AZITHROMYCIN 500 MG in SODIUM CHLORIDE 0.9% 250 ML IV SCH (22:16)
[2019-09-01 01:44] VITALS: BP 124/82
[2019-09-01] MEDS: PANTOPROZOLE 40MG TABLET PO SCH (05:01)
[2019-09-01] MEDS: LACTOBACILLUS CHEW TABLET PO SCH ×4 (05:01→20:49)
[2019-09-01] MEDS: VANCOMYCIN 50 MG/ML ORAL SUSP PO SCH ×4 (05:01→22:51)
[2019-09-01] MEDS: PROPRANOLOL 10 MG TABLET PO SCH ×3 (05:02→22:51)
[2019-09-01] MEDS: HYDROmorphone 2 MG/ML, 1ML IVPush PRN (05:08)
[2019-09-01 05:21] LABS: CALCIUM 7.9 mg/dL (8.5-10.1); CHLORIDE 108 mmol/L (98-107)
[2019-09-01 05:27] LABS: ALANINE AMINOTRANSFERASE 86 U/L (12-78); ALBUMIN 2.8 g/dL (3.4-5.0); ALKALINE PHOSPHATASE 111 U/L (45-117); ANION GAP 8 mmol/L (5-15); BILIRUBIN,TOTAL 0.9 mg/dL (0.2-1.0); CREATININE 1.17 mg/dL (0.7-1.3); TOTAL PROTEIN 6.1 g/dL (6.4-8.2)
[2019-09-01 05:34] LABS: MEAN CORPUSCULAR HEMOGLOBIN 34.8 pg (27.5-34.5); MEAN CORPUSCULAR HGB CONC 33.3 g/dL (33.2-36.2); MEAN CORPUSCULAR VOLUME 104.5 fL (81-97); MEAN PLATELET VOLUME 9.1 fL (7.4-10.4); RED BLOOD COUNT 2.88 x10^6/uL (4.38-5.82); RED CELL DISTRIBUTION WIDTH 17.5 % (9.4-14.8)
[2019-09-01 05:47] LABS: PLATELET COUNT 21 x10^3/uL (130-400)
[2019-09-01 06:20] LABS: BASOPHILS # (AUTO) 0.01 x10^3/uL (0-0.1); BASOPHILS % (AUTO) 0 % (0-1); EOSINOPHILS # (AUTO) 0.05 x10^3/uL (0-0.4); EOSINOPHILS % (AUTO) 1 % (1-7); LYMPHOCYTES # (AUTO) 0.57 x10^3/uL (1-3.4); LYMPHOCYTES % (AUTO) 15 % (22-44); MD SCAN; MONOCYTES # (AUTO) 0.38 x10^3/uL (0.2-0.8); MONOCYTES % (AUTO) 10 % (2-9); NEUTROPHILS # (AUTO) 2.67 x10^3/uL (1.8-6.8); NEUTROPHILS % (AUTO) 73 % (42-75)
[2019-09-01 08:08] VITALS: BP 144/89
[2019-09-01] MEDS: SUCRALFATE 1 GM/10 ML UDC PO SCH ×4 (09:17→20:49)
[2019-09-01] MEDS: THIAMINE 100MG TABLET PO SCH (09:18)
[2019-09-01] MEDS: MULTIVITAMIN 1 TABLET PO SCH (09:18)
[2019-09-01] MEDS: VENLAFAXINE 75 MG CAP ER PO SCH (09:18)
[2019-09-01] MEDS: FOLIC ACID 1 MG TABLET PO SCH (09:18)
[2019-09-01] MEDS: QUETIAPINE 200 MG TABLET PO SCH ×2 (09:18→20:49)
[2019-09-01] MEDS: SODIUM CHLORIDE 0.9% 1,000 ML IV SCH ×2 (09:18→22:51)
[2019-09-01] MEDS: BISACODYL 10 MG SUPP PR SCH (09:19)
[2019-09-01] MEDS ORDERED: SODIUM CHLORIDE 0.9% 1,000 ML IV SCH (09:30)
[2019-09-01] MEDS: LORazepam 1MG TABLET PO PRN ×3 (09:50→20:49)
[2019-09-01] MEDS: ACETYLCYSTEINE 600 MG CAPSULE PO SCH ×2 (09:50→20:49)
[2019-09-01 14:26] VITALS: BP 128/81
[2019-09-01 20:34] VITALS: BP 135/87
[2019-09-02 00:39] VITALS: BP 148/97
[2019-09-02] MEDS: LACTOBACILLUS CHEW TABLET PO SCH ×2 (05:20→10:45)
[2019-09-02] MEDS: PANTOPROZOLE 40MG TABLET PO SCH (05:20)
[2019-09-02] MEDS: PROPRANOLOL 10 MG TABLET PO SCH (05:20)
[2019-09-02] MEDS: VANCOMYCIN 50 MG/ML ORAL SUSP PO SCH ×2 (05:20→10:45)
[2019-09-02 06:36] VITALS: BP 147/87
[2019-09-02 06:41] LABS: MEAN CORPUSCULAR HEMOGLOBIN 34.8 pg (27.5-34.5); MEAN CORPUSCULAR HGB CONC 33.8 g/dL (33.2-36.2); MEAN CORPUSCULAR VOLUME 102.9 fL (81-97); RED CELL DISTRIBUTION WIDTH 17.3 % (9.4-14.8)
[2019-09-02 07:05] LABS: MD YES
[2019-09-02 07:51] LABS: LYMPH#(MANUAL) 0.27 x10^3/uL (1-3.4); LYMPHS% (MANUAL) 10 % (22-44); MONOS#(MANUAL) 0.11 x10^3/uL (0.3-2.7); MONOS% (MANUAL) 4 % (2-9); SEG#(MANUAL) 2.32 x10^3/uL (1.8-6.8); SEGS% (MANUAL) 86 % (42-75)
[2019-09-02 07:52] LABS: <PLATELET ESTIMATE> DECREASED; <PLT MORPHOLOGY> NORMAL PLT MORPH; ANISOCYTOSIS 1+
[2019-09-02 07:53] LABS: MEAN PLATELET VOLUME 7.9 fL (7.4-10.4)
[2019-09-02 07:58] LABS: PLATELET COUNT 35 x10^3/uL (130-400)
[2019-09-02] MEDS: QUETIAPINE 200 MG TABLET PO SCH (09:14)
[2019-09-02] MEDS: THIAMINE 100MG TABLET PO SCH (09:14)
[2019-09-02] MEDS: ACETYLCYSTEINE 600 MG CAPSULE PO SCH (09:14)
[2019-09-02] MEDS: FOLIC ACID 1 MG TABLET PO SCH (09:14)
[2019-09-02] MEDS: VENLAFAXINE 75 MG CAP ER PO SCH (09:14)
[2019-09-02] MEDS: MULTIVITAMIN 1 TABLET PO SCH (09:14)
[2019-09-02] MEDS: SUCRALFATE 1 GM/10 ML UDC PO SCH ×2 (09:15→10:45)
[2019-09-02] MEDS: LORazepam 0.5MG TABLET PO PRN (09:26)
[2019-09-02] MEDS ORDERED: ACID1TAB7 PO (11:07)
[2019-09-02] MEDS ORDERED: ACET600C6 PO (11:07)
[2019-09-02] MEDS ORDERED: VANC1VIA3 PO (11:07)
[2019-09-02] MEDS ORDERED: THIA100T67 PO (11:07)
[2019-09-02] MEDS ORDERED: TAMS-11 PO (12:10)
[2019-09-02] MEDS ORDERED: TAMSULOSIN 0.4 MG CAP.ER.24H PO SCH (12:30)
== END 2019-09-02 14:49 | disposition home or self-care (01) | DRG 438 ==
LOC: ED 03:52 → EDIP 04:41 → 3N 05:45 → 4EST 13:27
PROVIDERS: ADMIT Internal Medicine; ATTEND Internal Medicine
DX: K85.90 Acute pancreatitis without necrosis or infection, unspecified (principal); J18.9 Pneumonia, unspecified organism; D61.818 Other pancytopenia; E87.1 Hypo-osmolality and hyponatremia; F10.239 Alcohol dependence with withdrawal, unspecified; K56.7 Ileus, unspecified; A04.72 Enterocolitis due to Clostridium difficile, not specified as recurrent; D53.9 Nutritional anemia, unspecified; E55.9 Vitamin D deficiency, unspecified; E66.9 Obesity, unspecified; E78.5 Hyperlipidemia, unspecified; E87.6 Hypokalemia; F10.229 Alcohol dependence with intoxication, unspecified; F32.9 Major depressive disorder, single episode, unspecified; F41.9 Anxiety disorder, unspecified; I48.91 Unspecified atrial fibrillation; F45.21 Hypochondriasis; G47.00 Insomnia, unspecified; I12.9 Hypertensive chronic kidney disease with stage 1 through stage 4 chronic kidney disease, or unspecified chronic kidney disease; K20.9 Esophagitis, unspecified; R16.1 Splenomegaly, not elsewhere classified; R33.9 Retention of urine, unspecified; Y90.0 Blood alcohol level of less than 20 mg/100 ml; K29.70 Gastritis, unspecified, without bleeding; K70.10 Alcoholic hepatitis without ascites; Z96.641 Presence of right artificial hip joint; K70.30 Alcoholic cirrhosis of liver without ascites; N18.3 Chronic kidney disease, stage 3 (moderate); Z83.3 Family history of diabetes mellitus; Z86.711 Personal history of pulmonary embolism; Z86.718 Personal history of other venous thrombosis and embolism; Z68.33 Body mass index [BMI] 33.0-33.9, adult; Z87.19 Personal history of other diseases of the digestive system; Z90.49 Acquired absence of other specified parts of digestive tract; Z88.0 Allergy status to penicillin; Z88.1 Allergy status to other antibiotic agents; Z88.8 Allergy status to other drugs, medicaments and biological substances; Z91.030 Bee allergy status; Z79.01 Long term (current) use of anticoagulants; Z71.41 Alcohol abuse counseling and surveillance of alcoholic
CPT/HCPCS: 36415; 87046; 87427; 96360; 99285; J3370; 71045; 74177; 76700; 80053; 80061; 80074; 80307; 82140; 82247; 82248; 82306; 82607; 82728; 83036; 83540; 83550; 83605; 83690; 83735; 84100; 84439; 84443; 84466; 84484; 85025; 85610; 87040; 87324; 87493; 93005; G0378; J0456; J0696; J1170; Q9967; C9113; J0360; J2060; J2270; J3475; J7030; J7050

== ENCOUNTER 2019-10-05 03:34 | Inpatient (IN) | payer MEDICAID ==
[~2019-10-05] VITALS: Ht 182.9 cm; Wt 103.9 kg
[~2019-10-05 03:34] MED LIST changes: +ACET600C6 PO; +ACID1TAB7 PO; -HYDR50TA13 PO; +HYDR50TA99 PO; +SIMV20TA19 PO; -SIMV20TA3 PO; +TAMS-11 PO; +VANC1VIA3 PO
[2019-10-05] MEDS ORDERED: SODIUM CHLORIDE 0.9% 1,000ML IVBOLUS ONE (04:00)
[2019-10-05] MEDS ORDERED: SODIUM CHLORIDE FLUSH 10ML SYR IVF ONE (04:00)
[2019-10-05] MEDS ORDERED: ONDANSETRON 2MG/ML, 2ML IVPush ONE (04:00)
[2019-10-05] MEDS ORDERED: FAMOTIDINE 20 MG/2 ML IV ONE (04:00)
[2019-10-05] MEDS ORDERED: FAMOTIDINE 20 MG/2 ML ONE (04:11)
[2019-10-05] MEDS ORDERED: ONDANSETRON 2MG/ML, 2ML ONE (04:11)
[2019-10-05] MEDS ORDERED: MORPHINE SULFATE 4 MG/ML, 1ML ONE ×3 (04:11→06:59)
--- NOTE | 2019-10-05 04:30 | NUR ---
PT RESTING IN BED. STATES PAIN ISN'T BETTER. DR NOTIFIED.
[2019-10-05] MEDS: MORPHINE SULFATE 4 MG/ML, 1ML IVPush PRN ×2 (04:33→05:30)
[2019-10-05 04:58] LABS: MEAN CORPUSCULAR HEMOGLOBIN 35.4 pg (27.5-34.5); MEAN CORPUSCULAR HGB CONC 34.2 g/dL (33.2-36.2); MEAN CORPUSCULAR VOLUME 103.7 fL (81-97); MEAN PLATELET VOLUME 8.1 fL (7.4-10.4); PLATELET COUNT 131 x10^3/uL (130-400); RED BLOOD COUNT 4.14 x10^6/uL (4.38-5.82); RED CELL DISTRIBUTION WIDTH 13.8 % (9.4-14.8)
[2019-10-05 05:02] LABS: BASOPHILS # (AUTO) 0.01 x10^3/uL (0-0.1); BASOPHILS % (AUTO) 0 % (0-1); EOSINOPHILS # (AUTO) 0.01 x10^3/uL (0-0.4); EOSINOPHILS % (AUTO) 0 % (1-7); LYMPHOCYTES # (AUTO) 0.74 x10^3/uL (1-3.4); LYMPHOCYTES % (AUTO) 16 % (22-44); MD SCAN; MONOCYTES # (AUTO) 0.22 x10^3/uL (0.2-0.8); MONOCYTES % (AUTO) 5 % (2-9); NEUTROPHILS # (AUTO) 3.67 x10^3/uL (1.8-6.8); NEUTROPHILS % (AUTO) 79 % (42-75)
[2019-10-05] MEDS ORDERED: KETOROLAC 30 MG/1 ML ONE (05:13)
[2019-10-05] MEDS ORDERED: KETOROLAC 30 MG/1 ML IVPush ONE (05:30)
[2019-10-05 06:16] LABS: ALANINE AMINOTRANSFERASE 81 U/L (12-78); ALBUMIN 4.1 g/dL (3.4-5.0); ANION GAP 13 mmol/L (5-15); CHLORIDE 104 mmol/L (98-107); CREATININE 1.28 mg/dL (0.7-1.3)
[2019-10-05 06:18] LABS: ALKALINE PHOSPHATASE 139 U/L (45-117); TOTAL PROTEIN 8.4 g/dL (6.4-8.2)
--- NOTE | 2019-10-05 06:42 | NUR ---
PT WITH [facility]. MARIELLE AT [facility] DECLINED TRANSFER, NAM AT [facility] DECLINED TRANSFER
[2019-10-05] MEDS ORDERED: CHLORDIAZEPOXIDE 25 MG CAPSULE ONE (06:59)
[2019-10-05] MEDS ORDERED: MORPHINE SULFATE 4 MG/ML, 1ML IVPush ONE (07:00)
[2019-10-05] MEDS ORDERED: SODIUM CHLORIDE 0.9% 1,000 ML IV ONE (07:00)
[2019-10-05] MEDS ORDERED: CHLORDIAZEPOXIDE 25 MG CAPSULE PO PRN (07:00)
[2019-10-05] MEDS ORDERED: RIVA20TA PO (07:05)
[2019-10-05] MEDS ORDERED: QUET200T4 PO (07:06)
[2019-10-05] MEDS ORDERED: OMEP-110 PO (07:07)
--- NOTE | 2019-10-05 07:08 | NUR ---
SBAR HAND-OFF REPORT RECEIVED FROM SENDY LAYTON. ASSUMING CARE OF PATIENT. PATEINT'S ABD PAIN PERSISTS. PATIENT MEDICATED PER OCT. PT RESTING AND IN NO DISTRESS.
--- NOTE | 2019-10-05 07:17 | NUR ---
TASK RN: URINE COLLECTED AND SENT TO LAB
[2019-10-05 07:39] LABS: MICROSCOPIC NOT IND
[2019-10-05 07:43] LABS: CULTURE INDICATED? NO
[2019-10-05] MEDS ORDERED: CHLORDIAZEPOXIDE 25 MG CAPSULE PO SCH (08:00)
[2019-10-05] MEDS ORDERED: ONDANSETRON 2MG/ML, 2ML IVPush PRN (08:00)
[2019-10-05] MEDS ORDERED: PROMETHAZINE 25 MG/ML, 1ML IM PRN (08:00)
[2019-10-05] MEDS ORDERED: LORazepam 1MG TABLET PO PRN ×3 (08:00)
[2019-10-05] MEDS ORDERED: HYDROmorphone 1 MG/ML, 1ML INJ ONE (08:04)
[2019-10-05] MEDS: HYDROmorphone 2 MG/ML, 1ML IVPush PRN ×3 (08:10→20:18)
--- NOTE | 2019-10-05 08:20 | NUR ---
SBAR TELEPHONE HAND-OFF REPORT GIVEN TO SENDY URIAS.
[2019-10-05 09:17] VITALS: BP 156/108
[2019-10-05] MEDS: OXYcodone IR 5MG TABLET PO PRN ×3 (09:46→21:50)
[2019-10-05] MEDS ORDERED: THIAMINE 200 MG in SODIUM CHLORIDE 0.9% 50 ML IV ONE (10:00)
[2019-10-05] MEDS: ENOXAPARIN 40 MG/0.4 ML SQ SCH (10:33)
[2019-10-05] MEDS: CHLORDIAZEPOXIDE 25 MG CAPSULE PO SCH ×3 (10:33→20:17)
[2019-10-05] MEDS: LORazepam 0.5MG TABLET PO PRN ×3 (12:06→23:29)
[2019-10-05 13:35] VITALS: BP 160/81
[2019-10-05] MEDS: THIAMINE 200 MG, MVI ADULT 10 ML, FOLIC ACID 1 MG in D5%-0.9% NACL 1,000 ML IV SCH (13:37)
[2019-10-05] MEDS: LORazepam 1MG TABLET PO PRN (16:23)
[2019-10-05 20:16] VITALS: BP 152/98
[2019-10-06 00:32] VITALS: BP 164/91
[2019-10-06] MEDS: HYDROmorphone 2 MG/ML, 1ML IVPush PRN ×4 (00:34→13:42)
[2019-10-06] MEDS: CHLORDIAZEPOXIDE 25 MG CAPSULE PO SCH ×4 (02:34→22:05)
[2019-10-06] MEDS: LORazepam 0.5MG TABLET PO PRN (05:12)
[2019-10-06] MEDS: OXYcodone IR 5MG TABLET PO PRN ×2 (06:31→20:29)
[2019-10-06 06:34] LABS: CHLORIDE 103 mmol/L (98-107)
[2019-10-06 07:11] LABS: BASOPHILS # (AUTO) 0.01 x10^3/uL (0-0.1); BASOPHILS % (AUTO) 0 % (0-1); EOSINOPHILS # (AUTO) 0.05 x10^3/uL (0-0.4); EOSINOPHILS % (AUTO) 1 % (1-7); LYMPHOCYTES # (AUTO) 0.99 x10^3/uL (1-3.4); LYMPHOCYTES % (AUTO) 21 % (22-44); MD SCAN; MEAN CORPUSCULAR HEMOGLOBIN 35.7 pg (27.5-34.5); MEAN CORPUSCULAR HGB CONC 33.9 g/dL (33.2-36.2); MEAN CORPUSCULAR VOLUME 105.2 fL (81-97); MEAN PLATELET VOLUME 7.3 fL (7.4-10.4); MONOCYTES # (AUTO) 0.26 x10^3/uL (0.2-0.8); MONOCYTES % (AUTO) 6 % (2-9); NEUTROPHILS # (AUTO) 3.43 x10^3/uL (1.8-6.8); NEUTROPHILS % (AUTO) 72 % (42-75); PLATELET COUNT 74 x10^3/uL (130-400); RED BLOOD COUNT 3.49 x10^6/uL (4.38-5.82); RED CELL DISTRIBUTION WIDTH 13.7 % (9.4-14.8)
[2019-10-06 07:25] LABS: ALANINE AMINOTRANSFERASE 63 U/L (12-78); ALBUMIN 3.5 g/dL (3.4-5.0); ALKALINE PHOSPHATASE 118 U/L (45-117); ANION GAP 8 mmol/L (5-15); BILIRUBIN,TOTAL 1.5 mg/dL (0.2-1.0); CALCIUM 8.5 mg/dL (8.5-10.1); CREATININE 1.23 mg/dL (0.7-1.3); TOTAL PROTEIN 7.1 g/dL (6.4-8.2)
[2019-10-06 08:34] VITALS: BP 153/91
[2019-10-06] MEDS ORDERED: MAGNESIUM SULFATE PMX 2GM/50ML 50 ML IV ONE (10:00)
[2019-10-06] MEDS: THIAMINE 200 MG, MVI ADULT 10 ML, FOLIC ACID 1 MG in D5%-0.9% NACL 1,000 ML IV SCH (10:33)
[2019-10-06] MEDS: ENOXAPARIN 40 MG/0.4 ML SQ SCH (13:24)
[2019-10-06 13:30] VITALS: BP 155/94
[2019-10-06 18:21] VITALS: BP 156/102
[2019-10-06] MEDS: MAGNESIUM OXIDE 400 MG TABLET PO SCH (20:29)
[2019-10-07 02:21] VITALS: BP 141/89
[2019-10-07] MEDS: CHLORDIAZEPOXIDE 25 MG CAPSULE PO SCH ×3 (03:41→16:00)
[2019-10-07] MEDS: OXYcodone IR 5MG TABLET PO PRN ×3 (03:42→12:39)
[2019-10-07 06:17] LABS: MEAN CORPUSCULAR HEMOGLOBIN 35.5 pg (27.5-34.5); MEAN CORPUSCULAR HGB CONC 33.8 g/dL (33.2-36.2); MEAN CORPUSCULAR VOLUME 105.2 fL (81-97); MEAN PLATELET VOLUME 7.7 fL (7.4-10.4); PLATELET COUNT 82 x10^3/uL (130-400); RED BLOOD COUNT 3.68 x10^6/uL (4.38-5.82); RED CELL DISTRIBUTION WIDTH 13.9 % (9.4-14.8)
[2019-10-07 06:27] LABS: CHLORIDE 103 mmol/L (98-107)
[2019-10-07 06:33] LABS: ALANINE AMINOTRANSFERASE 53 U/L (12-78); ALBUMIN 3.3 g/dL (3.4-5.0); ALKALINE PHOSPHATASE 113 U/L (45-117); ANION GAP 5 mmol/L (5-15); BILIRUBIN,TOTAL 1.4 mg/dL (0.2-1.0); CALCIUM 8.5 mg/dL (8.5-10.1); CREATININE 1.29 mg/dL (0.7-1.3)
[2019-10-07 06:54] LABS: ANISOCYTOSIS 1+; BASOPHILS # (AUTO) 0.02 x10^3/uL (0-0.1); BASOPHILS % (AUTO) 0 % (0-1); EOSINOPHILS % (AUTO) 2 % (1-7); LYMPHOCYTES # (AUTO) 0.84 x10^3/uL (1-3.4); LYMPHOCYTES % (AUTO) 16 % (22-44); MD MORPH REVIEW ONLY; MONOCYTES # (AUTO) 0.29 x10^3/uL (0.2-0.8); MONOCYTES % (AUTO) 5 % (2-9); NEUTROPHILS # (AUTO) 4.18 x10^3/uL (1.8-6.8); NEUTROPHILS % (AUTO) 77 % (42-75)
[2019-10-07 06:59] LABS: <PLATELET ESTIMATE> DECREASED; <PLT MORPHOLOGY> NORMAL PLT MORPH
[2019-10-07] MEDS ORDERED: POTASSIUM CHLORIDE 20 MEQ TAB.ER.PRT PO ONE (07:30)
[2019-10-07 08:13] VITALS: BP 139/92
[2019-10-07] MEDS: MAGNESIUM OXIDE 400 MG TABLET PO SCH (08:51)
[2019-10-07] MEDS: LORazepam 1MG TABLET PO PRN ×2 (09:03→13:59)
[2019-10-07] MEDS: THIAMINE 200 MG, MVI ADULT 10 ML, FOLIC ACID 1 MG in D5%-0.9% NACL 1,000 ML IV SCH (09:44)
[2019-10-07] MEDS: ENOXAPARIN 40 MG/0.4 ML SQ SCH (13:00)
[2019-10-07] MEDS ORDERED: MULT1TAB60 PO (13:29)
[2019-10-07] MEDS ORDERED: FOLI-17 PO (13:29)
[2019-10-07] MEDS ORDERED: THIA100T67 PO (13:29)
[2019-10-07] MEDS ORDERED: MAGN400T50 PO (13:29)
[2019-10-07 13:57] VITALS: BP 145/92
== END 2019-10-07 16:19 | disposition home or self-care (01) | DRG 432 ==
LOC: ED 05:32 → EDIP 07:06 → 4EST 09:03
PROVIDERS: ADMIT Internal Medicine; ATTEND Internal Medicine
DX: K70.10 Alcoholic hepatitis without ascites (principal); K85.20 Alcohol induced acute pancreatitis without necrosis or infection; F10.288 Alcohol dependence with other alcohol-induced disorder; F10.239 Alcohol dependence with withdrawal, unspecified; D75.89 Other specified diseases of blood and blood-forming organs; E78.5 Hyperlipidemia, unspecified; E83.42 Hypomagnesemia; E87.6 Hypokalemia; F10.229 Alcohol dependence with intoxication, unspecified; F32.9 Major depressive disorder, single episode, unspecified; F41.9 Anxiety disorder, unspecified; I12.9 Hypertensive chronic kidney disease with stage 1 through stage 4 chronic kidney disease, or unspecified chronic kidney disease; I48.91 Unspecified atrial fibrillation; K70.30 Alcoholic cirrhosis of liver without ascites; Y90.9 Presence of alcohol in blood, level not specified; N40.1 Benign prostatic hyperplasia with lower urinary tract symptoms; N18.3 Chronic kidney disease, stage 3 (moderate); Z83.3 Family history of diabetes mellitus; Z86.19 Personal history of other infectious and parasitic diseases; Z86.711 Personal history of pulmonary embolism; Z86.718 Personal history of other venous thrombosis and embolism; Z87.19 Personal history of other diseases of the digestive system; Z90.49 Acquired absence of other specified parts of digestive tract; Z91.19 Patient's noncompliance with other medical treatment and regimen; Z88.8 Allergy status to other drugs, medicaments and biological substances; Z88.1 Allergy status to other antibiotic agents; Z91.030 Bee allergy status; Z81.1 Family history of alcohol abuse and dependence; Z84.1 Family history of disorders of kidney and ureter
CPT/HCPCS: 36415; 96361; 96374; 96375; 99285; J3490; J7042; 80053; 80307; 81003; 82150; 83690; 83735; 84100; 85025; 93005; 93306; G0378; J1170; J1650; J1885; J2405; J3411; J2270; J3475; J7030

== ENCOUNTER 2019-12-12 17:11 | Emergency (ER) | payer MEDICAID ==
[~2019-12-12] VITALS: Ht 182.9 cm; Wt 102.0 kg
[~2019-12-12 17:11] MED LIST changes: +MAGN400T50 PO; +OMEP-110 PO; +QUET200T4 PO; +RIVA20TA PO
--- NOTE | 2019-12-12 17:28 | NUR ---
ECG OBTAINED IN TRIAGE
[2019-12-12] MEDS ORDERED: RIVA20TA PO (17:30)
--- NOTE | 2019-12-12 17:31 | NUR ---
PT AMBULATED TO ROOM WITH PRODUCT MANAGENT INTERN. STEADY GAIT.
--- NOTE | 2019-12-12 17:37 | NUR ---
PT PRESENTED TO ED D/T BILATERAL LOWER ABD PAIN. HX OF PANCREATITIS. PT STATES FEELS "THE SAME." LAST DRINK YESTERDAY AT 2100. +DIARRHEA. DENIES N/V. DENIES FEVERS/CHILLS.
[2019-12-12] MEDS ORDERED: ONDANSETRON 2MG/ML, 2ML ONE (18:14)
[2019-12-12] MEDS ORDERED: MORPHINE SULFATE 4 MG/ML, 1ML ONE ×3 (18:14→19:30)
[2019-12-12] MEDS: MORPHINE SULFATE 4 MG/ML, 1ML IVPush PRN ×2 (18:16→18:43)
--- NOTE | 2019-12-12 18:18 | NUR ---
PIV ACCESS OBTAINED, 18 L AC. LABS DRAWN AND COLLECTED. PT MEDICATED FOR 8/10 ABD PAIN PER EMAR.
[2019-12-12 18:24] LABS: BASOPHILS # (AUTO) 0.02 x10^3/uL (0-0.1); BASOPHILS % (AUTO) 0 % (0-1); EOSINOPHILS # (AUTO) 0.01 x10^3/uL (0-0.4); EOSINOPHILS % (AUTO) 0 % (1-7); LYMPHOCYTES # (AUTO) 1.44 x10^3/uL (1-3.4); LYMPHOCYTES % (AUTO) 29 % (22-44); MD NO; MEAN CORPUSCULAR HEMOGLOBIN 33.7 pg (27.5-34.5); MEAN CORPUSCULAR HGB CONC 34.3 g/dL (33.2-36.2); MEAN CORPUSCULAR VOLUME 98.1 fL (81-97); MEAN PLATELET VOLUME 7.2 fL (7.4-10.4); MONOCYTES # (AUTO) 0.36 x10^3/uL (0.2-0.8); MONOCYTES % (AUTO) 7 % (2-9); NEUTROPHILS # (AUTO) 3.23 x10^3/uL (1.8-6.8); NEUTROPHILS % (AUTO) 64 % (42-75); PLATELET COUNT 114 x10^3/uL (130-400); RED BLOOD COUNT 3.91 x10^6/uL (4.38-5.82); RED CELL DISTRIBUTION WIDTH 15.1 % (9.4-14.8)
[2019-12-12] MEDS ORDERED: SODIUM CHLORIDE FLUSH 10ML SYR IVF ONE (18:30)
[2019-12-12] MEDS ORDERED: SODIUM CHLORIDE 0.9% 1,000ML IVBOLUS ONE (18:30)
[2019-12-12] MEDS ORDERED: ONDANSETRON 2MG/ML, 2ML IVPush ONE (18:30)
[2019-12-12 18:31] LABS: ALANINE AMINOTRANSFERASE 52 U/L (12-78); ALBUMIN 3.6 g/dL (3.4-5.0); ANION GAP 12 mmol/L (5-15); CALCIUM 8.6 mg/dL (8.5-10.1); CHLORIDE 103 mmol/L (98-107); CREATININE 1.39 mg/dL (0.7-1.3)
[2019-12-12 18:36] LABS: ALKALINE PHOSPHATASE 98 U/L (45-117); BILIRUBIN,TOTAL 0.6 mg/dL (0.2-1.0); TOTAL PROTEIN 7.8 g/dL (6.4-8.2); TROPONIN I < 0.015 ng/mL (0.000-0.045)
--- NOTE | 2019-12-12 18:44 | NUR ---
2/2 DOSES OF MORPHINE ADMINISTERED FOR 8/10 LOWER ABD PAIN.
--- NOTE | 2019-12-12 18:51 | NUR ---
REPORT TO SENDY PEDERSEN TO ASSUME PRIMARY CARE OF PT.
--- NOTE | 2019-12-12 18:53 | NUR ---
REPORT RECEIVED FROM SENDY WESTBROOK. PLAN OF CARE DISCUSSED. THIS RN TO ASSUME CARE AT THIS TIME
--- NOTE | 2019-12-12 19:02 | NUR ---
PATIENT DESAT TO 86% ON RA WITH GOOD PLETH. PLACED ON 2L NC, UP TO 96%.
[2019-12-12] MEDS ORDERED: HYDROmorphone 2 MG/ML, 1ML ONE (19:26)
[2019-12-12] MEDS ORDERED: HYDROmorphone 2 MG/ML, 1ML IVPush PRN (19:30)
--- NOTE | 2019-12-12 19:34 | NUR ---
NON ADMIN OF DILAUDID PER DR. LEACH ORDERS. PATIENT TO BE GIVEN ANOTHER DOSE OF MORPHINE PER MD ORDERS.
--- NOTE | 2019-12-12 19:39 | NUR ---
PATIENT MEDICATED PER EMAR, TOLERATED WELL
[2019-12-12] MEDS ORDERED: MORPHINE SULFATE 4 MG/ML, 1ML IVPush PRN (20:00)
--- NOTE | 2019-12-12 20:44 | NUR ---
PATIENT TO CTA
[2019-12-12] MEDS ORDERED: OMNIPAQUE 350 MG/ML, 100ML BOTTLE ONE ×2 (20:54→20:55)
[2019-12-12 21:05] VITALS: BP 146/58
--- NOTE | 2019-12-12 21:25 | NUR ---
PATIENT AMBULATORY WITH STEADY GAIT, 93-94% ON RA.
[2019-12-12] MEDS ORDERED: HYDROcodone/APAP 5/325 TABLET PO ONE (21:30)
[2019-12-12] MEDS ORDERED: HYDROcodone/APAP 5/325 TABLET ONE (21:30)
--- NOTE | 2019-12-12 21:33 | NUR ---
PATIENT MEDICATED PER EMAR. TOLERATED WELL.
--- NOTE | 2019-12-12 21:39 | NUR ---
DADA MORIN TO ROOM TO DISCUSS DISCHARGE.
--- NOTE | 2019-12-12 21:46 | NUR ---
Patient given discharge instructions and they have confirmed that they understand the instructions. Patient ambulatory with steady gait.
== END 2019-12-12 21:48 | disposition home or self-care (01) ==
LOC: ED 17:48
DX: K29.00 Acute gastritis without bleeding (principal); F10.10 Alcohol abuse, uncomplicated; F41.1 Generalized anxiety disorder; R00.0 Tachycardia, unspecified; I10 Essential (primary) hypertension; E78.5 Hyperlipidemia, unspecified; Z86.718 Personal history of other venous thrombosis and embolism; Y90.9 Presence of alcohol in blood, level not specified
CPT/HCPCS: 36415; 71045; 71275; 80053; 83690; 84484; 85025; 85379; 93005; 96374; 96375; 96376; 99285; J2270; J2405; J7030; Q9967

== ENCOUNTER 2019-12-13 03:33 | Emergency (ER) | payer MEDICAID ==
[~2019-12-13] VITALS: Ht 182.9 cm; Wt 103.0 kg
[2019-12-13] MEDS ORDERED: ONDANSETRON ODT 8 MG ONE (03:43)
--- NOTE | 2019-12-13 03:45 | NUR ---
LATE ENTRY: PT. TO ED WITH C/O CONTINUED ABD PAIN AND NOW WITH VOMITING AT HOME. PT. WAS SEEN EARLIER AND MANY TESTS/LABS WERE DONE. PT. WAS D/C WITH [facility] AND WAS UNABLE TO FILL NO PHARMACY'S (OTHER THAN DRIVE THROUGH AND HE HAS NO CAR) WERE OPEN. PT. REPORTS PAIN IS WORSE NOW THAN WHEN HE WAS HERE BEFORE. DR. HANLEY IN TO EVAL PT. AND DISCUSS POC.
[2019-12-13] MEDS ORDERED: HYDROcodone/APAP 5/325 TABLET ONE ×2 (03:51→05:11)
[2019-12-13] MEDS ORDERED: LORazepam 1MG TABLET ONE (03:53)
[2019-12-13] MEDS ORDERED: SODIUM CHLORIDE FLUSH 10ML SYR IVF ONE (04:00)
[2019-12-13] MEDS ORDERED: ONDANSETRON ODT 8 MG PO ONE (04:00)
[2019-12-13] MEDS ORDERED: LORazepam 1MG TABLET PO ONE (04:00)
[2019-12-13] MEDS ORDERED: HYDROcodone/APAP 5/325 TABLET PO ONE ×2 (04:00→05:30)
[2019-12-13 04:28] LABS: ALBUMIN 3.6 g/dL (3.4-5.0); ANION GAP 15 mmol/L (5-15); CALCIUM 8.7 mg/dL (8.5-10.1); CHLORIDE 104 mmol/L (98-107)
[2019-12-13 04:30] LABS: MEAN CORPUSCULAR HEMOGLOBIN 33.3 pg (27.5-34.5); MEAN CORPUSCULAR HGB CONC 33.8 g/dL (33.2-36.2); MEAN CORPUSCULAR VOLUME 98.3 fL (81-97); MEAN PLATELET VOLUME 7.4 fL (7.4-10.4); PLATELET COUNT 93 x10^3/uL (130-400); RED BLOOD COUNT 3.71 x10^6/uL (4.38-5.82); RED CELL DISTRIBUTION WIDTH 15.4 % (9.4-14.8)
[2019-12-13 04:45] LABS: ALANINE AMINOTRANSFERASE 50 U/L (12-78); ALKALINE PHOSPHATASE 96 U/L (45-117); BILIRUBIN,TOTAL 1.4 mg/dL (0.2-1.0); CREATININE 1.42 mg/dL (0.7-1.3); TOTAL PROTEIN 7.4 g/dL (6.4-8.2)
[2019-12-13 04:52] LABS: BASOPHILS # (AUTO) 0.02 x10^3/uL (0-0.1); BASOPHILS % (AUTO) 0 % (0-1); EOSINOPHILS # (AUTO) 0.01 x10^3/uL (0-0.4); EOSINOPHILS % (AUTO) 0 % (1-7); LYMPHOCYTES # (AUTO) 0.94 x10^3/uL (1-3.4); LYMPHOCYTES % (AUTO) 19 % (22-44); MD SCAN; MONOCYTES # (AUTO) 0.31 x10^3/uL (0.2-0.8); MONOCYTES % (AUTO) 6 % (2-9); NEUTROPHILS # (AUTO) 3.75 x10^3/uL (1.8-6.8); NEUTROPHILS % (AUTO) 75 % (42-75)
[2019-12-13 05:07] VITALS: BP 139/74
--- NOTE | 2019-12-13 05:14 | NUR ---
PT. REPORTED PAIN WAS STILL 8/10 AT TIME OF D/C. DISCUSSED PT. CONTINUED PAIN WITH DR. GUSTAFSON; NEW ORDER RECEIVED AND PT. MEDICATED PER MAR PRIOR TO D/C. VERBALIZED UNDERSTANDING OF ALL D/C INSTRUCTIONS. PT. REPORTS HE WILL FILL RX WHEN PHARMACY'S OPEN.
== END 2019-12-13 05:18 | disposition home or self-care (01) ==
LOC: ED 03:58
DX: K29.20 Alcoholic gastritis without bleeding (principal); R10.13 Epigastric pain; I10 Essential (primary) hypertension; E78.5 Hyperlipidemia, unspecified; Z86.718 Personal history of other venous thrombosis and embolism; Z90.49 Acquired absence of other specified parts of digestive tract
CPT/HCPCS: 36415; 80053; 80307; 83690; 85025; 99284; Q0162

== ENCOUNTER 2020-01-14 11:28 | Inpatient (IN) | payer MEDICAID ==
[~2020-01-14] VITALS: Ht 182.9 cm; Wt 114.3 kg
[2020-01-14] MEDS ORDERED: SODIUM CHLORIDE 0.9% 1,000ML IVBOLUS ONE ×3 (12:00→13:00)
[2020-01-14] MEDS ORDERED: SODIUM CHLORIDE FLUSH 10ML SYR IVF ONE ×3 (12:00→13:00)
[2020-01-14] MEDS ORDERED: ASPIRIN 81 MG TABLET CHEW PO ONE (12:00)
[2020-01-14 12:22] LABS: INTERNATIONAL NORMALIZED RATIO 0.94 (0.93-1.1)
[2020-01-14 12:23] LABS: ALANINE AMINOTRANSFERASE 20 U/L (12-78); ALBUMIN 3.1 g/dL (3.4-5.0); ANION GAP 9 mmol/L (5-15); CALCIUM 8.5 mg/dL (8.5-10.1); CHLORIDE 107 mmol/L (98-107)
[2020-01-14 12:27] LABS: ALKALINE PHOSPHATASE 83 U/L (45-117); BILIRUBIN,TOTAL 0.4 mg/dL (0.2-1.0); TOTAL PROTEIN 6.9 g/dL (6.4-8.2); TROPONIN I < 0.015 ng/mL (0.000-0.045)
[2020-01-14] MEDS ORDERED: ONDANSETRON 2MG/ML, 2ML ONE (12:41)
[2020-01-14] MEDS ORDERED: HYDROmorphone 2 MG/ML, 1ML ONE (12:41)
[2020-01-14] MEDS ORDERED: LORazepam 2 MG/ML, 1ML ONE (12:42)
[2020-01-14 12:44] LABS: MEAN CORPUSCULAR HEMOGLOBIN 33.9 pg (27.5-34.5); MEAN CORPUSCULAR HGB CONC 33.6 g/dL (33.2-36.2); MEAN PLATELET VOLUME 7.5 fL (7.4-10.4); PLATELET COUNT 83 x10^3/uL (130-400); RED CELL DISTRIBUTION WIDTH 16.3 % (9.4-14.8)
[2020-01-14 12:46] LABS: BASOPHILS # (AUTO) 0.03 x10^3/uL (0-0.1); BASOPHILS % (AUTO) 1 % (0-1); EOSINOPHILS # (AUTO) 0.07 x10^3/uL (0-0.4); EOSINOPHILS % (AUTO) 1 % (1-7); LYMPHOCYTES # (AUTO) 1.43 x10^3/uL (1-3.4); LYMPHOCYTES % (AUTO) 28 % (22-44); MD SCAN; MONOCYTES # (AUTO) 0.49 x10^3/uL (0.2-0.8); MONOCYTES % (AUTO) 10 % (2-9); NEUTROPHILS # (AUTO) 3.13 x10^3/uL (1.8-6.8); NEUTROPHILS % (AUTO) 61 % (42-75)
--- NOTE | 2020-01-14 12:53 | NUR ---
PT AWARE OF INTENTION TO ADMIT. IV BOLUS INFUSING. MEDICATED FOR ABDOMINAL PAIN, NAUSEA AND FEELING SHAKY. STATES HE HAS PASSED OUT FROM PAIN LAST TWO DAYS AND ONE TIME HIT HIS FOREHEAD. ABRASION NOTED LEFT SIDE OF FOREHEAD WITH NO BLEEDING. SINUS TACH ON MONITOR
[2020-01-14] MEDS ORDERED: ONDANSETRON 2MG/ML, 2ML IVPush ONE (13:00)
[2020-01-14] MEDS ORDERED: HYDROmorphone 2 MG/ML, 1ML IVPush PRN (13:00)
[2020-01-14] MEDS ORDERED: LORazepam 2 MG/ML, 1ML IVPush PRN (13:00)
--- NOTE | 2020-01-14 13:24 | NUR ---
REPORT TO RUDDY KABA. PT TO BE TRANSPORTED TO FLOOR.
--- NOTE | 2020-01-14 13:44 | NUR ---
HOSPITALIST AT BEDSIDE
[2020-01-14 14:05] VITALS: BP 121/81
[2020-01-14 14:14] VITALS: BP 121/81
[2020-01-14] MEDS ORDERED: ONDANSETRON ODT 4 MG PO PRN (14:30)
[2020-01-14] MEDS ORDERED: ONDANSETRON 2MG/ML, 2ML IV PRN (14:30)
[2020-01-14] MEDS ORDERED: ACETAMINOPHEN 325 MG TABLET PO PRN (14:30)
[2020-01-14] MEDS ORDERED: LORazepam 2 MG/ML, 1ML IV PRN ×5 (14:30)
[2020-01-14] MEDS ORDERED: TEMAZEPAM 15 MG CAPSULE PO PRN (14:30)
[2020-01-14] MEDS: POTASSIUM CHLORIDE 40 MEQ, MVI ADULT 10 ML, FOLIC ACID 1 MG, MAGNESIUM SULFATE 2 GM in ... IV SCH (15:00)
[2020-01-14] MEDS: HEPARIN 5,000 UNITS/ML, 1ML SQ SCH ×2 (15:03→22:29)
[2020-01-14] MEDS: HYDROmorphone 1 MG/ML, 1ML INJ IVPush PRN ×2 (15:04→19:29)
[2020-01-14] MEDS: LORazepam 1MG TABLET PO SCH ×2 (16:00→21:00)
[2020-01-14 19:03] VITALS: BP 117/74
[2020-01-14 21:14] LABS: MICROSCOPIC NOT IND
[2020-01-15 00:17] VITALS: BP 128/82
[2020-01-15] MEDS: HYDROmorphone 1 MG/ML, 1ML INJ IVPush PRN ×3 (00:26→10:14)
[2020-01-15] MEDS: SODIUM CHLORIDE 0.9% 1,000 ML IV SCH ×2 (01:21→11:13)
[2020-01-15] MEDS: HEPARIN 5,000 UNITS/ML, 1ML SQ SCH ×2 (05:37→15:40)
[2020-01-15 05:43] LABS: MEAN CORPUSCULAR HEMOGLOBIN 33.9 pg (27.5-34.5); MEAN CORPUSCULAR HGB CONC 33.4 g/dL (33.2-36.2); MEAN CORPUSCULAR VOLUME 101.5 fL (81-97); RED BLOOD COUNT 3.23 x10^6/uL (4.38-5.82); RED CELL DISTRIBUTION WIDTH 16.3 % (9.4-14.8)
[2020-01-15 05:47] LABS: CHLORIDE 110 mmol/L (98-107)
[2020-01-15 05:55] LABS: ALANINE AMINOTRANSFERASE 19 U/L (12-78); ALKALINE PHOSPHATASE 83 U/L (45-117); ANION GAP 7 mmol/L (5-15); BILIRUBIN,TOTAL 0.7 mg/dL (0.2-1.0); CREATININE 1.25 mg/dL (0.7-1.3); TOTAL PROTEIN 6.6 g/dL (6.4-8.2)
[2020-01-15 06:07] LABS: MEAN PLATELET VOLUME 7.6 fL (7.4-10.4); PLATELET COUNT 65 x10^3/uL (130-400)
[2020-01-15 06:09] LABS: MD SCAN
[2020-01-15 06:10] LABS: BASOPHILS # (AUTO) 0.02 x10^3/uL (0-0.1); BASOPHILS % (AUTO) 0 % (0-1); EOSINOPHILS # (AUTO) 0.05 x10^3/uL (0-0.4); EOSINOPHILS % (AUTO) 1 % (1-7); LYMPHOCYTES # (AUTO) 1.22 x10^3/uL (1-3.4); LYMPHOCYTES % (AUTO) 35 % (22-44); MONOCYTES # (AUTO) 0.32 x10^3/uL (0.2-0.8); MONOCYTES % (AUTO) 9 % (2-9); NEUTROPHILS # (AUTO) 1.87 x10^3/uL (1.8-6.8); NEUTROPHILS % (AUTO) 54 % (42-75)
[2020-01-15] MEDS: PANTOPRAZOLE 40 MG IV IVPush SCH (06:33)
[2020-01-15] MEDS: LORazepam 1MG TABLET PO SCH ×4 (06:33→20:46)
[2020-01-15 07:21] VITALS: BP 128/80
[2020-01-15] MEDS: VENLAFAXINE 75 MG CAP ER PO SCH (11:13)
[2020-01-15] MEDS: QUETIAPINE 100MG TABLET PO SCH ×2 (11:13→20:45)
[2020-01-15 13:03] VITALS: BP 155/84
[2020-01-15] MEDS: POTASSIUM CHLORIDE 40 MEQ, MVI ADULT 10 ML, FOLIC ACID 1 MG, MAGNESIUM SULFATE 2 GM in ... IV SCH (17:16)
[2020-01-15 20:41] LABS: BASOPHILS # (AUTO) 0.01 x10^3/uL (0-0.1); BASOPHILS % (AUTO) 0 % (0-1); EOSINOPHILS # (AUTO) 0.08 x10^3/uL (0-0.4); EOSINOPHILS % (AUTO) 3 % (1-7); LYMPHOCYTES # (AUTO) 0.94 x10^3/uL (1-3.4); LYMPHOCYTES % (AUTO) 34 % (22-44); MD SCAN; MEAN CORPUSCULAR HEMOGLOBIN 33.7 pg (27.5-34.5); MEAN CORPUSCULAR HGB CONC 33.6 g/dL (33.2-36.2); MEAN CORPUSCULAR VOLUME 100.4 fL (81-97); MEAN PLATELET VOLUME 7.5 fL (7.4-10.4); MONOCYTES # (AUTO) 0.26 x10^3/uL (0.2-0.8); MONOCYTES % (AUTO) 9 % (2-9); NEUTROPHILS # (AUTO) 1.51 x10^3/uL (1.8-6.8); NEUTROPHILS % (AUTO) 54 % (42-75); PLATELET COUNT 71 x10^3/uL (130-400); RED BLOOD COUNT 3.14 x10^6/uL (4.38-5.82); RED CELL DISTRIBUTION WIDTH 16.1 % (9.4-14.8)
[2020-01-15 20:45] VITALS: BP 129/79
[2020-01-16 01:50] VITALS: BP 135/83
[2020-01-16] MEDS: HEPARIN 5,000 UNITS/ML, 1ML SQ SCH ×3 (01:50→17:31)
[2020-01-16] MEDS: HYDROmorphone 1 MG/ML, 1ML INJ IVPush PRN ×2 (01:59→15:50)
[2020-01-16] MEDS: SODIUM CHLORIDE 0.9% 1,000 ML IV SCH ×3 (03:22→23:00)
[2020-01-16] MEDS: PANTOPRAZOLE 40 MG IV IVPush SCH (06:29)
[2020-01-16] MEDS: LORazepam 1MG TABLET PO SCH ×4 (06:29→20:43)
[2020-01-16 06:32] LABS: ANION GAP 5 mmol/L (5-15); CALCIUM 8.4 mg/dL (8.5-10.1); CHLORIDE 108 mmol/L (98-107)
[2020-01-16 06:35] LABS: ALANINE AMINOTRANSFERASE 19 U/L (12-78); ALKALINE PHOSPHATASE 85 U/L (45-117); BILIRUBIN,TOTAL 0.7 mg/dL (0.2-1.0); TOTAL PROTEIN 6.4 g/dL (6.4-8.2)
[2020-01-16 07:47] VITALS: BP 146/92
[2020-01-16] MEDS: THIAMINE 100 MG in DEXTROSE 5% 50 ML IVPB SCH ×2 (09:00→09:20)
[2020-01-16] MEDS: QUETIAPINE 100MG TABLET PO SCH ×2 (09:20→21:33)
[2020-01-16] MEDS: VENLAFAXINE 75 MG CAP ER PO SCH (09:20)
[2020-01-16] MEDS ORDERED: DOCUSATE 100 MG CAPSULE PO PRN (11:00)
[2020-01-16] MEDS ORDERED: BISACODYL 10 MG SUPP PR PRN (11:00)
[2020-01-16] MEDS ORDERED: POLYETHYLENE GLYCOL 17 GM PACKET PO PRN (11:00)
[2020-01-16] MEDS: ACETAMINOPHEN 325 MG TABLET PO PRN (12:53)
[2020-01-16] MEDS ORDERED: ONDANSETRON 4 MG TABLET PO PRN (13:30)
[2020-01-16] MEDS: OXYcodone/APAP 10/325MG TABLET PO PRN (13:33)
[2020-01-16 13:49] VITALS: BP 159/91
[2020-01-16] MEDS: POTASSIUM CHLORIDE 40 MEQ, MVI ADULT 10 ML, FOLIC ACID 1 MG, MAGNESIUM SULFATE 2 GM in ... IV SCH (17:31)
[2020-01-16 19:57] VITALS: BP 145/90
[2020-01-17 01:33] VITALS: BP 146/91
[2020-01-17] MEDS: HYDROmorphone 1 MG/ML, 1ML INJ IVPush PRN ×6 (01:41→20:08)
[2020-01-17] MEDS: HEPARIN 5,000 UNITS/ML, 1ML SQ SCH ×3 (01:50→16:08)
[2020-01-17] MEDS: POTASSIUM CHLORIDE 40 MEQ, MVI ADULT 10 ML, FOLIC ACID 1 MG, MAGNESIUM SULFATE 2 GM in ... IV SCH ×2 (04:52→13:42)
[2020-01-17] MEDS: OXYcodone/APAP 10/325MG TABLET PO PRN ×2 (04:53→08:35)
[2020-01-17] MEDS: LORazepam 1MG TABLET PO SCH ×4 (06:31→20:05)
[2020-01-17 07:25] VITALS: BP 145/88
[2020-01-17] MEDS: PANTOPRAZOLE 40 MG IV IVPush SCH (08:33)
[2020-01-17] MEDS: VENLAFAXINE 75 MG CAP ER PO SCH (08:34)
[2020-01-17] MEDS: THIAMINE 100MG TABLET PO SCH (08:34)
[2020-01-17] MEDS: QUETIAPINE 100MG TABLET PO SCH (08:34)
[2020-01-17 13:45] VITALS: BP 128/87
[2020-01-17] MEDS: SODIUM CHLORIDE 0.9% 1,000 ML IV SCH (15:35)
[2020-01-17 19:23] VITALS: BP 137/88
[2020-01-17] MEDS: ACETAMINOPHEN 325 MG TABLET PO PRN (21:11)
[2020-01-17] MEDS: OXYcodone 5 MG/5 ML ORAL.SOL UDC PO PRN (21:11)
[2020-01-18] MEDS: HYDROmorphone 1 MG/ML, 1ML INJ IVPush PRN ×6 (00:09→20:16)
[2020-01-18 00:17] VITALS: BP 161/95
[2020-01-18] MEDS: OXYcodone 5 MG/5 ML ORAL.SOL UDC PO PRN ×2 (02:52→22:19)
[2020-01-18] MEDS: HEPARIN 5,000 UNITS/ML, 1ML SQ SCH ×3 (02:53→16:38)
[2020-01-18] MEDS: POTASSIUM CHLORIDE 40 MEQ, MVI ADULT 10 ML, FOLIC ACID 1 MG, MAGNESIUM SULFATE 2 GM in ... IV SCH ×3 (03:27→20:40)
[2020-01-18] MEDS: SODIUM CHLORIDE 0.9% 1,000 ML IV SCH ×3 (03:54→16:37)
[2020-01-18] MEDS: LORazepam 1MG TABLET PO SCH ×3 (05:57→16:37)
[2020-01-18 06:33] VITALS: BP 152/84
[2020-01-18] MEDS: ARIPIPRAZOLE 10 MG TABLET PO SCH (08:04)
[2020-01-18] MEDS: PANTOPRAZOLE 40 MG IV IVPush SCH (08:04)
[2020-01-18] MEDS: THIAMINE 100MG TABLET PO SCH (08:04)
[2020-01-18] MEDS: VENLAFAXINE 75 MG CAP ER PO SCH (08:04)
[2020-01-18 12:16] VITALS: BP 146/92
[2020-01-18 19:30] VITALS: BP 130/82
[2020-01-18] MEDS: LORazepam 0.5MG TABLET PO SCH (20:15)
[2020-01-19] MEDS: HYDROmorphone 1 MG/ML, 1ML INJ IVPush PRN ×4 (00:07→12:10)
[2020-01-19 00:14] VITALS: BP 133/86
[2020-01-19] MEDS: ACETAMINOPHEN 325 MG TABLET PO PRN ×2 (02:04→06:00)
[2020-01-19] MEDS: HEPARIN 5,000 UNITS/ML, 1ML SQ SCH ×3 (02:05→18:16)
[2020-01-19] MEDS: OXYcodone 5 MG/5 ML ORAL.SOL UDC PO PRN ×6 (02:05→22:43)
[2020-01-19 04:54] LABS: ALANINE AMINOTRANSFERASE 19 U/L (12-78); ALBUMIN 3.1 g/dL (3.4-5.0); ANION GAP 5 mmol/L (5-15); CALCIUM 8.4 mg/dL (8.5-10.1); CHLORIDE 107 mmol/L (98-107); CREATININE 1.38 mg/dL (0.7-1.3)
[2020-01-19 04:56] LABS: ALKALINE PHOSPHATASE 91 U/L (45-117); BILIRUBIN,TOTAL 0.3 mg/dL (0.2-1.0); TOTAL PROTEIN 6.8 g/dL (6.4-8.2)
[2020-01-19] MEDS: LORazepam 0.5MG TABLET PO SCH ×2 (06:00→10:03)
[2020-01-19] MEDS: POTASSIUM CHLORIDE 40 MEQ, MVI ADULT 10 ML, FOLIC ACID 1 MG, MAGNESIUM SULFATE 2 GM in ... IV SCH (07:06)
[2020-01-19 07:55] VITALS: BP 154/95
[2020-01-19] MEDS: PANTOPRAZOLE 40 MG IV IVPush SCH (08:08)
[2020-01-19] MEDS: THIAMINE 100MG TABLET PO SCH (08:09)
[2020-01-19] MEDS: VENLAFAXINE 75 MG CAP ER PO SCH (08:09)
[2020-01-19] MEDS: ARIPIPRAZOLE 10 MG TABLET PO SCH (08:09)
[2020-01-19 13:46] VITALS: BP 136/82
[2020-01-19] MEDS ORDERED: SODIUM CHLORIDE 0.9% 1,000 ML IV SCH (15:00)
[2020-01-19 20:27] VITALS: BP 145/84
[2020-01-20 01:05] VITALS: BP 144/83
[2020-01-20] MEDS: OXYcodone 5 MG/5 ML ORAL.SOL UDC PO PRN ×2 (02:42→08:33)
[2020-01-20] MEDS: HEPARIN 5,000 UNITS/ML, 1ML SQ SCH ×2 (02:43→08:30)
[2020-01-20 06:45] VITALS: BP 166/82
[2020-01-20] MEDS ORDERED: HYDR-826 PO (08:15)
[2020-01-20] MEDS ORDERED: THIA100T67 PO (08:15)
[2020-01-20] MEDS ORDERED: ARIP10TA33 PO (08:15)
[2020-01-20] MEDS ORDERED: FOLI-17 PO (08:15)
[2020-01-20] MEDS ORDERED: OXYC5CAP2 PO (08:15)
[2020-01-20] MEDS: ARIPIPRAZOLE 10 MG TABLET PO SCH (08:29)
[2020-01-20] MEDS: VENLAFAXINE 75 MG CAP ER PO SCH (08:29)
[2020-01-20] MEDS: THIAMINE 100MG TABLET PO SCH (08:29)
[2020-01-20] MEDS: PANTOPRAZOLE 40 MG IV IVPush SCH (08:29)
[2020-01-20 12:00] VITALS: BP 160/81
== END 2020-01-20 13:43 | disposition home or self-care (01) | DRG 439 ==
LOC: ED 12:45 → EDIP 12:54 → 4WST 13:59 → DCLOUNGE 01-20 13:38
PROVIDERS: ADMIT Family Medicine; ATTEND Internal Medicine
DX: K85.20 Alcohol induced acute pancreatitis without necrosis or infection (principal); D61.818 Other pancytopenia; F31.63 Bipolar disorder, current episode mixed, severe, without psychotic features; I13.0 Hypertensive heart and chronic kidney disease with heart failure and stage 1 through stage 4 chronic kidney disease, or unspecified chronic kidney disease; R45.851 Suicidal ideations; E10.22 Type 1 diabetes mellitus with diabetic chronic kidney disease; E78.5 Hyperlipidemia, unspecified; E83.42 Hypomagnesemia; E87.6 Hypokalemia; F12.90 Cannabis use, unspecified, uncomplicated; F29 Unspecified psychosis not due to a substance or known physiological condition; F41.0 Panic disorder [episodic paroxysmal anxiety]; F41.1 Generalized anxiety disorder; G25.81 Restless legs syndrome; I48.91 Unspecified atrial fibrillation; I50.9 Heart failure, unspecified; J44.9 Chronic obstructive pulmonary disease, unspecified; K70.30 Alcoholic cirrhosis of liver without ascites; N18.3 Chronic kidney disease, stage 3 (moderate); N40.0 Benign prostatic hyperplasia without lower urinary tract symptoms; F10.20 Alcohol dependence, uncomplicated; Y90.9 Presence of alcohol in blood, level not specified; Z96.641 Presence of right artificial hip joint; L40.9 Psoriasis, unspecified; Z79.4 Long term (current) use of insulin; Z79.899 Other long term (current) drug therapy; Z83.3 Family history of diabetes mellitus; Z86.19 Personal history of other infectious and parasitic diseases; Z86.711 Personal history of pulmonary embolism; Z86.718 Personal history of other venous thrombosis and embolism; Z87.19 Personal history of other diseases of the digestive system; Z90.49 Acquired absence of other specified parts of digestive tract; Z91.14 Patient's other noncompliance with medication regimen; Z88.0 Allergy status to penicillin; Z88.1 Allergy status to other antibiotic agents; Z88.8 Allergy status to other drugs, medicaments and biological substances; Z91.030 Bee allergy status
CPT/HCPCS: 36415; 70450; 71045; 80053; 81003; 83690; 83735; 84100; 84484; 85025; 85379; 85610; 85730; 93005; 93306; 99285; G0378; J1170; J1644; J2405; J3411; J3475; J3480; C9113; J2060; J7030; Q0177

== ENCOUNTER 2020-01-30 21:20 | Emergency (ER) | payer MEDICAID ==
[~2020-01-30] VITALS: Ht 182.9 cm; Wt 103.3 kg
[~2020-01-30 21:20] MED LIST changes: +ARIP10TA33 PO; +HYDR-826 PO; +OXYC5CAP2 PO
[2020-01-30 22:05] LABS: BASOPHILS # (AUTO) 0.01 x10^3/uL (0-0.1); BASOPHILS % (AUTO) 0 % (0-1); EOSINOPHILS # (AUTO) 0.15 x10^3/uL (0-0.4); EOSINOPHILS % (AUTO) 2 % (1-7); LYMPHOCYTES # (AUTO) 1.76 x10^3/uL (1-3.4); LYMPHOCYTES % (AUTO) 21 % (22-44); MD NO; MEAN CORPUSCULAR HGB CONC 33.9 g/dL (33.2-36.2); MEAN CORPUSCULAR VOLUME 100.2 fL (81-97); MEAN PLATELET VOLUME 7.2 fL (7.4-10.4); MONOCYTES # (AUTO) 0.47 x10^3/uL (0.2-0.8); MONOCYTES % (AUTO) 6 % (2-9); NEUTROPHILS # (AUTO) 5.94 x10^3/uL (1.8-6.8); NEUTROPHILS % (AUTO) 71 % (42-75); PLATELET COUNT 160 x10^3/uL (130-400); RED CELL DISTRIBUTION WIDTH 16.9 % (9.4-14.8)
[2020-01-30] MEDS ORDERED: GABA300C PO (22:05)
[2020-01-30] MEDS ORDERED: FAMO-79 PO (22:05)
[2020-01-30] MEDS ORDERED: OMEP-110 PO ×2 (22:05)
[2020-01-30] MEDS ORDERED: RIVA20TA PO (22:05)
[2020-01-30 22:16] LABS: ALBUMIN 3.6 g/dL (3.4-5.0); ANION GAP 8 mmol/L (5-15); CALCIUM 8.3 mg/dL (8.5-10.1); CHLORIDE 111 mmol/L (98-107)
[2020-01-30 22:20] LABS: TROPONIN I < 0.015 ng/mL (0.000-0.045)
[2020-01-30] MEDS ORDERED: MAALOX/HYOSCYAMINE/LIDOCAINE 45 ML BTL ONE (22:29)
[2020-01-30] MEDS ORDERED: MAALOX/HYOSCYAMINE/LIDOCAINE 45 ML BTL PO ONE (22:30)
[2020-01-30] MEDS ORDERED: SODIUM CHLORIDE 0.9% 1,000ML IVBOLUS ONE (22:30)
[2020-01-30 22:32] LABS: ALBUMIN 3.6 g/dL (3.4-5.0); BILIRUBIN, DIRECT 0.1 mg/dL (0.1-0.2)
[2020-01-30 22:34] LABS: BILIRUBIN,INDIRECT 0.2 mg/dL (0.0-2.0); BILIRUBIN,TOTAL 0.3 mg/dL (0.2-1.0); TOTAL PROTEIN 7.7 g/dL (6.4-8.2)
--- NOTE | 2020-01-30 23:13 | NUR ---
PT IN CT.
[2020-01-30] MEDS ORDERED: OMNIPAQUE 350 MG/ML, 100ML BOTTLE ONE (23:45)
[2020-01-31] MEDS ORDERED: MORPHINE SULFATE 4 MG/ML, 1ML ONE (00:20)
[2020-01-31 00:28] VITALS: BP 146/101
[2020-01-31] MEDS ORDERED: MORPHINE SULFATE 4 MG/ML, 1ML IVPush ONE (01:00)
== END 2020-01-31 01:08 | disposition home or self-care (01) ==
LOC: ED 01-31 01:02
DX: K85.00 Idiopathic acute pancreatitis without necrosis or infection (principal); R10.13 Epigastric pain; R07.89 Other chest pain; R06.02 Shortness of breath; R00.2 Palpitations; R94.31 Abnormal electrocardiogram [ECG] [EKG]; K21.9 Gastro-esophageal reflux disease without esophagitis; Z86.718 Personal history of other venous thrombosis and embolism
CPT/HCPCS: 36415; 71045; 74177; 80048; 80076; 82040; 83690; 84484; 85025; 93005; 96374; 99285; J2270; J7030; Q9967

== ENCOUNTER 2020-02-02 10:27 | Emergency (ER) | payer MEDICAID ==
[~2020-02-02] VITALS: Ht 182.9 cm; Wt 100.0 kg
[~2020-02-02 10:27] MED LIST changes: +GABA300C PO; +MULT-449 PO; -MULT1TAB60 PO
[2020-02-02] MEDS ORDERED: FAMOTIDINE 20 MG/2 ML ONE (10:50)
[2020-02-02] MEDS ORDERED: MAALOX/HYOSCYAMINE/LIDOCAINE 45 ML BTL ONE (10:50)
[2020-02-02] MEDS ORDERED: SODIUM CHLORIDE FLUSH 10ML SYR IVF ONE (11:00)
[2020-02-02] MEDS ORDERED: SODIUM CHLORIDE 0.9% 1,000ML IVBOLUS ONE (11:00)
[2020-02-02] MEDS ORDERED: FAMOTIDINE 20 MG/2 ML IV ONE (11:00)
[2020-02-02] MEDS ORDERED: ONDANSETRON 2MG/ML, 2ML IVPush ONE (11:00)
[2020-02-02] MEDS ORDERED: MAALOX/HYOSCYAMINE/LIDOCAINE 45 ML BTL PO ONE (11:00)
[2020-02-02] MEDS ORDERED: MORPHINE SULFATE 4 MG/ML, 1ML ONE (11:40)
[2020-02-02] MEDS ORDERED: ONDANSETRON 2MG/ML, 2ML ONE (11:40)
[2020-02-02 11:44] LABS: MICROSCOPIC NOT IND
[2020-02-02 11:53] LABS: MEAN CORPUSCULAR HEMOGLOBIN 33.7 pg (27.5-34.5); MEAN CORPUSCULAR HGB CONC 33.5 g/dL (33.2-36.2); MEAN CORPUSCULAR VOLUME 100.6 fL (81-97); RED BLOOD COUNT 3.51 x10^6/uL (4.38-5.82); RED CELL DISTRIBUTION WIDTH 16.2 % (9.4-14.8)
[2020-02-02 11:58] LABS: ALANINE AMINOTRANSFERASE 17 U/L (12-78); ALBUMIN 3.3 g/dL (3.4-5.0); ANION GAP 7 mmol/L (5-15); CALCIUM 8.5 mg/dL (8.5-10.1); CHLORIDE 109 mmol/L (98-107); CREATININE 1.21 mg/dL (0.7-1.3)
[2020-02-02] MEDS ORDERED: morphine SULFATE 10 MG/ML, 1ML IVPush ONE (12:00)
[2020-02-02 12:03] LABS: ALKALINE PHOSPHATASE 80 U/L (45-117); BILIRUBIN,TOTAL 0.5 mg/dL (0.2-1.0); TOTAL PROTEIN 7.3 g/dL (6.4-8.2); TROPONIN I < 0.015 ng/mL (0.000-0.045)
[2020-02-02 12:13] LABS: MD SCAN; MEAN PLATELET VOLUME 7.9 fL (7.4-10.4); PLATELET COUNT 120 x10^3/uL (130-400)
[2020-02-02 12:14] LABS: BASOPHILS # (AUTO) 0.02 x10^3/uL (0-0.1); BASOPHILS % (AUTO) 0 % (0-1); EOSINOPHILS # (AUTO) 0.11 x10^3/uL (0-0.4); EOSINOPHILS % (AUTO) 2 % (1-7); LYMPHOCYTES # (AUTO) 0.89 x10^3/uL (1-3.4); LYMPHOCYTES % (AUTO) 17 % (22-44); MONOCYTES # (AUTO) 0.37 x10^3/uL (0.2-0.8); MONOCYTES % (AUTO) 7 % (2-9); NEUTROPHILS # (AUTO) 3.89 x10^3/uL (1.8-6.8); NEUTROPHILS % (AUTO) 74 % (42-75)
[2020-02-02 13:08] VITALS: BP 137/83
== END 2020-02-02 13:11 | disposition home or self-care (01) ==
LOC: ED 12:14
DX: K29.20 Alcoholic gastritis without bleeding (principal); F10.10 Alcohol abuse, uncomplicated; D63.8 Anemia in other chronic diseases classified elsewhere; Z90.49 Acquired absence of other specified parts of digestive tract; Y90.9 Presence of alcohol in blood, level not specified
CPT/HCPCS: 36415; 76700; 80053; 81003; 83690; 84484; 85025; 93005; 96361; 96374; 96375; 99285; J2270; J2405; J3490; J7030

== ENCOUNTER 2020-09-10 08:41 | Emergency (ER) | payer MEDICAID ==
[~2020-09-10] VITALS: Ht 182.9 cm; Wt 110.0 kg
[~2020-09-10 08:41] MED LIST changes: +HYDR-1067 PO; -HYDR-3240 PO; -OXYC-432 PO; +OXYC1TAB18 PO; -PANT40TA5 PO; +PANT40TA6 PO
--- NOTE | 2020-09-10 08:47 | NUR ---
[facility] for chief complaint CP since 6 am and abd pain with n/v for few days. 81 mg ASA BOOM BOSS
[2020-09-10] MEDS ORDERED: SODIUM CHLORIDE FLUSH 10ML SYR IVF ONE (09:00)
[2020-09-10] MEDS ORDERED: FAMOTIDINE 20 MG/2 ML IV ONE (09:00)
[2020-09-10] MEDS ORDERED: SODIUM CHLORIDE 0.9% 1,000ML IVBOLUS ONE (09:00)
[2020-09-10] MEDS ORDERED: MAALOX/HYOSCYAMINE/LIDOCAINE 45 ML BTL PO ONE (09:00)
[2020-09-10] MEDS ORDERED: ONDANSETRON 2MG/ML, 2ML IVPush ONE (09:00)
[2020-09-10 09:29] LABS: BASOPHILS % (AUTO) 0 % (0-1); EOSINOPHILS % (AUTO) 1 % (1-7); LYMPHOCYTES % (AUTO) 17 % (22-44); MEAN CORPUSCULAR HEMOGLOBIN 34.5 pg (27.5-34.5); MEAN CORPUSCULAR HGB CONC 34.7 g/dL (33.2-36.2); MEAN PLATELET VOLUME 7.4 fL (7.4-10.4); MONOCYTES % (AUTO) 6 % (2-9); NEUTROPHILS % (AUTO) 76 % (42-75); PLATELET COUNT 98 x10^3/uL (130-400); RED BLOOD COUNT 4.04 x10^6/uL (4.38-5.82); RED CELL DISTRIBUTION WIDTH 12.6 % (9.4-14.8)
[2020-09-10 09:32] LABS: MD NO
[2020-09-10 09:39] LABS: ALANINE AMINOTRANSFERASE 33 U/L (12-78); ALBUMIN 3.5 g/dL (3.4-5.0); ANION GAP 10 mmol/L (5-15); CALCIUM 7.9 mg/dL (8.5-10.1); CHLORIDE 108 mmol/L (98-107)
[2020-09-10 09:44] LABS: ALKALINE PHOSPHATASE 81 U/L (45-117); BILIRUBIN,TOTAL 0.7 mg/dL (0.2-1.0); CREATININE 1.54 mg/dL (0.7-1.3); TOTAL PROTEIN 6.9 g/dL (6.4-8.2); TROPONIN I < 0.015 ng/mL (0.000-0.045)
[2020-09-10] MEDS ORDERED: FAMOTIDINE 20 MG/2 ML ONE (09:48)
[2020-09-10] MEDS ORDERED: MAALOX/HYOSCYAMINE/LIDOCAINE 45 ML BTL ONE (09:48)
[2020-09-10] MEDS ORDERED: ONDANSETRON 2MG/ML, 2ML ONE (10:06)
--- NOTE | 2020-09-10 10:15 | NUR ---
Pt has remained in bed, connected to all monitors. US has been to bedside. Pt is awake and alert, has been on phone and watching TV. Respirations even and unlabored. ADALBERTO.
[2020-09-10] MEDS ORDERED: OMEPRAZOLE 20 MG CAPSULE.DR ONE (10:20)
[2020-09-10] MEDS ORDERED: OMEPRAZOLE 20 MG CAPSULE.DR PO ONE (10:30)
--- NOTE | 2020-09-10 10:30 | NUR ---
Pt to and from xray.
[2020-09-10 10:51] VITALS: BP 123/84
== END 2020-09-10 11:21 | disposition home or self-care (01) ==
LOC: ED 10:06
DX: K29.20 Alcoholic gastritis without bleeding (principal); R07.89 Other chest pain; R00.0 Tachycardia, unspecified; E78.5 Hyperlipidemia, unspecified; I10 Essential (primary) hypertension; Z90.49 Acquired absence of other specified parts of digestive tract; Z88.0 Allergy status to penicillin; Z88.8 Allergy status to other drugs, medicaments and biological substances; Z86.718 Personal history of other venous thrombosis and embolism
CPT/HCPCS: 36415; 74022; 76700; 80053; 83690; 84484; 85025; 93005; 96361; 96374; 96375; 99285; J2405; J7030

== ENCOUNTER 2020-12-06 20:35 | Emergency (ER) | payer MEDICAID ==
[~2020-12-06] VITALS: Ht 188 cm; Wt 114.6 kg
[~2020-12-06 20:35] MED LIST changes: -FOLI-17 PO; +FOLI1TAB32 PO; -HYDR-1067 PO; +HYDR-2214 PO; +SERT-331 PO; -SERT25TA3 PO
--- NOTE | 2020-12-06 20:45 | NUR ---
PT BIB EMS FROM [facility] FOR ALCOHOL WITHDRAW. PT STATES LAST DRINK WAS 3 HOURS PREVIOUSLY. REPORTS PINT PER DAY VODKA. REPORTS NAUSEA AND VOMITTING, HEADACHE, DIZZINESS, FATIGUE, NO TREMORS NOTED, DENIES LIGHT SENSITIVITY, MINOR ANXIETY. CHANGED INTO GOWN, PLACED ON SPO2/BP/ECG MONITORING AT THIS TIME. BED IN LOWEST/RAILS ENGAGED, CALL LIGHT ON LAP, WCTM. PT GIVEN MORPHINE 4MG ENROUTE FOR ABOMINAL PAIN, HX PANCREATITIS AND LIVER CIRRHOSIS
[2020-12-06] MEDS ORDERED: QUET400T4 PO (20:49)
[2020-12-06] MEDS ORDERED: PROPANOLOL PO (20:49)
[2020-12-06 21:22] LABS: MEAN CORPUSCULAR HEMOGLOBIN 37.1 pg (27.5-34.5); MEAN CORPUSCULAR HGB CONC 35.1 g/dL (33.2-36.2); MEAN PLATELET VOLUME 7.9 fL (7.4-10.4); PLATELET COUNT 69 x10^3/uL (130-400); RED BLOOD COUNT 2.95 x10^6/uL (4.38-5.82); RED CELL DISTRIBUTION WIDTH 15.5 % (9.4-14.8)
[2020-12-06 21:34] LABS: ALANINE AMINOTRANSFERASE 107 U/L (12-78); ALBUMIN 3.1 g/dL (3.4-5.0); ANION GAP 8 mmol/L (5-15); CALCIUM 8.1 mg/dL (8.5-10.1); CHLORIDE 108 mmol/L (98-107); CREATININE 1.42 mg/dL (0.7-1.3)
[2020-12-06 21:36] LABS: ALKALINE PHOSPHATASE 134 U/L (45-117); BILIRUBIN,TOTAL 0.5 mg/dL (0.2-1.0); TOTAL PROTEIN 6.7 g/dL (6.4-8.2)
[2020-12-06 21:58] LABS: MD YES
[2020-12-06 22:01] LABS: BASOS#(MANUAL) 0.03 x10^3/uL (0-0.1); BASOS% (MANUAL) 1 % (0-1); EOS#(MANUAL) 0.08 x10^3/uL (0.0-0.4); EOS% (MANUAL) 3 % (1-7); LYMPH#(MANUAL) 0.89 x10^3/uL (1-3.4); LYMPHS% (MANUAL) 33 % (22-44); MONOS#(MANUAL) 0.35 x10^3/uL (0.3-2.7); MONOS% (MANUAL) 13 % (2-9); SEG#(MANUAL) 1.35 x10^3/uL (1.8-6.8); SEGS% (MANUAL) 50 % (42-75)
[2020-12-06 22:03] LABS: ANISOCYTOSIS 1+
[2020-12-06 22:04] LABS: <PLATELET ESTIMATE> DECREASED; TEAR DROPS 1+
--- NOTE | 2020-12-06 22:04 | NUR ---
PT RESTING ON GURNEY, NAD, APPEARS COMFORTABLE, EYES CLOSED, EVEN AND UNLABORED RESPIRATIONS NOTED, VSS, WCTM. WAITING FOR LAB RESULTS.
[2020-12-06 22:05] LABS: SMALL PLATELETS 1+
[2020-12-06 23:33] VITALS: BP 146/95
--- NOTE | 2020-12-06 23:34 | NUR ---
Patient given discharge instructions and they have confirmed that they understand the instructions. Patient ambulatory with steady gait. NAD, DENIES ADDITIONAL QUESTIONS OR NEEDS, NO PERSONAL BELONGINGS LEFT IN ROOM AFTER DC.
--- NOTE | 2020-12-06 23:55 | NUR ---
PROVIDED TAXI VOUCHER FOR [place]
== END 2020-12-06 23:56 | disposition home or self-care (01) ==
LOC: ED 20:57
DX: K70.10 Alcoholic hepatitis without ascites (principal); F10.220 Alcohol dependence with intoxication, uncomplicated; R10.10 Upper abdominal pain, unspecified; I10 Essential (primary) hypertension; F17.210 Nicotine dependence, cigarettes, uncomplicated; Z72.9 Problem related to lifestyle, unspecified; Z90.49 Acquired absence of other specified parts of digestive tract; Z86.718 Personal history of other venous thrombosis and embolism; Y90.0 Blood alcohol level of less than 20 mg/100 ml
CPT/HCPCS: 36415; 80053; 83690; 85025; 99283; 99406

== ENCOUNTER 2021-02-02 13:06 | Inpatient (IN) | payer MEDICAID ==
[~2021-02-02] VITALS: Ht 182.9 cm; Wt 115.5 kg
[~2021-02-02 13:06] MED LIST changes: +PROPANOLOL PO; -VANC1VIA3 PO; +VANC1VIA36 PO
--- NOTE | 2021-02-02 13:22 | NUR ---
AWAITING IV BAG FROM PHARMACY.
[2021-02-02] MEDS ORDERED: SODIUM CHLORIDE FLUSH 10ML SYR IVF ONE (13:30)
[2021-02-02] MEDS ORDERED: MAGNESIUM SULFATE 1 GM, THIAMINE 100 MG, FOLIC ACID 1 MG, MVI ADULT 10 ML in SODIUM CHL... IV ONE (13:30)
[2021-02-02 13:37] LABS: BASOPHILS % (AUTO) 1 % (0-1); EOSINOPHILS % (AUTO) 0 % (1-7); LYMPHOCYTES % (AUTO) 35 % (22-44); MEAN CORPUSCULAR HGB CONC 34.8 g/dL (33.2-36.2); MEAN PLATELET VOLUME 7.1 fL (7.4-10.4); MONOCYTES % (AUTO) 8 % (2-9); NEUTROPHILS % (AUTO) 57 % (42-75); PLATELET COUNT 127 x10^3/uL (130-400); RED BLOOD COUNT 3.86 x10^6/uL (4.38-5.82); RED CELL DISTRIBUTION WIDTH 14.6 % (9.4-14.8)
[2021-02-02 13:46] LABS: ALANINE AMINOTRANSFERASE 60 U/L (12-78); ALBUMIN 3.8 g/dL (3.4-5.0); ANION GAP 11 mmol/L (5-15); CHLORIDE 108 mmol/L (98-107); CREATININE 1.15 mg/dL (0.7-1.3)
[2021-02-02 13:48] LABS: ALKALINE PHOSPHATASE 146 U/L (45-117); BILIRUBIN,TOTAL 0.7 mg/dL (0.2-1.0); TOTAL PROTEIN 8.2 g/dL (6.4-8.2)
--- NOTE | 2021-02-02 14:03 | NUR ---
CALL TO [facility] PSYCH MOTOR SCOOTER REPAIRER. TECH AT BEDSIDE FOR IV START.
[2021-02-02] MEDS ORDERED: SODIUM CHLORIDE FLUSH 10ML SYR IVF PRN (14:30)
--- NOTE | 2021-02-02 14:32 | NUR ---
CALL TO PHARMACY REGARDING IV FLUIDS. PT SITTING UP IN BED, RESPIRATIONS EVEN AND UNLABORED ON RA. NAD NOTED AT THIS TIME.
[2021-02-02] MEDS ORDERED: LORazepam 2 MG/ML, 1ML ONE (14:41)
[2021-02-02] MEDS: LORazepam 2 MG/ML, 1ML IVPush PRN ×3 (14:45→16:08)
[2021-02-02 16:19] VITALS: BP 133/94
[2021-02-02] MEDS ORDERED: ONDANSETRON 2MG/ML, 2ML IVPush PRN (17:00)
[2021-02-02] MEDS ORDERED: LORazepam 2 MG/ML, 1ML IV PRN ×2 (17:00)
[2021-02-02] MEDS: LORazepam 2 MG/ML, 1ML IV PRN ×2 (17:10→21:53)
[2021-02-02] MEDS: MORPHINE SULFATE 4 MG/ML, 1ML IVPush PRN ×2 (17:11→20:37)
[2021-02-02] MEDS: CHLORDIAZEPOXIDE 25 MG CAPSULE PO SCH ×2 (17:11→20:35)
[2021-02-02] MEDS: ENOXAPARIN 40 MG/0.4 ML SQ SCH (17:11)
[2021-02-02 18:30] LABS: TROPONIN I < 0.015 ng/mL (0.000-0.045)
[2021-02-02 18:58] VITALS: BP 149/89
[2021-02-02] MEDS: FAMOTIDINE 20 MG TABLET PO SCH (20:35)
[2021-02-02] MEDS ORDERED: KETOROLAC 30 MG/1 ML IVPush ONE (23:30)
[2021-02-02 23:41] LABS: TROPONIN I < 0.015 ng/mL (0.000-0.045)
[2021-02-03 00:03] VITALS: BP 142/97
[2021-02-03] MEDS: SODIUM CHLORIDE 0.9% 1,000 ML, SODIUM CHLORIDE 0.9% 1,000 ML IV SCH ×2 (00:08→23:17)
[2021-02-03] MEDS: LORazepam 2 MG/ML, 1ML IV PRN ×5 (01:10→21:41)
[2021-02-03] MEDS: MORPHINE SULFATE 4 MG/ML, 1ML IVPush PRN ×2 (01:11→05:18)
[2021-02-03 06:10] LABS: TRIGLYCERIDES 416 mg/dL (50-200); TROPONIN I < 0.015 ng/mL (0.000-0.045)
[2021-02-03] MEDS: CHLORDIAZEPOXIDE 25 MG CAPSULE PO SCH (06:32)
[2021-02-03 07:13] VITALS: BP 151/78
[2021-02-03 08:59] LABS: BASOPHILS % (AUTO) 1 % (0-1); EOSINOPHILS % (AUTO) 0 % (1-7); LYMPHOCYTES % (AUTO) 24 % (22-44); MEAN CORPUSCULAR HEMOGLOBIN 36.4 pg (27.5-34.5); MEAN CORPUSCULAR HGB CONC 34.6 g/dL (33.2-36.2); MEAN PLATELET VOLUME 7.8 fL (7.4-10.4); MONOCYTES % (AUTO) 9 % (2-9); NEUTROPHILS % (AUTO) 66 % (42-75); PLATELET COUNT 73 x10^3/uL (130-400); RED BLOOD COUNT 3.13 x10^6/uL (4.38-5.82); RED CELL DISTRIBUTION WIDTH 14.5 % (9.4-14.8)
[2021-02-03 09:07] LABS: ALANINE AMINOTRANSFERASE 49 U/L (12-78); ALBUMIN 3.4 g/dL (3.4-5.0); ANION GAP 14 mmol/L (5-15); CALCIUM 7.6 mg/dL (8.5-10.1); CHLORIDE 108 mmol/L (98-107); CREATININE 1.03 mg/dL (0.7-1.3)
[2021-02-03 09:10] LABS: ALKALINE PHOSPHATASE 119 U/L (45-117); BILIRUBIN,TOTAL 1.3 mg/dL (0.2-1.0); TOTAL PROTEIN 7.2 g/dL (6.4-8.2)
[2021-02-03] MEDS: FAMOTIDINE 20 MG TABLET PO SCH ×2 (09:18→21:41)
[2021-02-03] MEDS: morphine SULFATE 10 MG/ML, 1ML IVPush PRN ×5 (09:18→21:42)
[2021-02-03 13:13] VITALS: BP 140/88
[2021-02-03] MEDS ORDERED: FOLIC ACID IV SCH ×2 (15:00→17:00)
[2021-02-03] MEDS ORDERED: MVI ADULT IV SCH ×2 (15:00→17:00)
[2021-02-03] MEDS ORDERED: D5 IV SCH ×2 (15:00→17:00)
[2021-02-03] MEDS ORDERED: THIAMINE IV SCH ×2 (15:00→17:00)
[2021-02-03] MEDS ORDERED: NACL IV SCH ×2 (15:00→17:00)
[2021-02-03] MEDS: FOLIC ACID IV SCH (15:43)
[2021-02-03] MEDS: THIAMINE IV SCH (15:43)
[2021-02-03] MEDS: MVI ADULT IV SCH (15:43)
[2021-02-03] MEDS: D5 IV SCH (15:43)
[2021-02-03] MEDS: NACL IV SCH (15:43)
[2021-02-03] MEDS: ENOXAPARIN 40 MG/0.4 ML SQ SCH (18:40)
[2021-02-03 19:34] VITALS: BP 144/82
[2021-02-04 00:33] VITALS: BP 153/83
[2021-02-04] MEDS: LORazepam 2 MG/ML, 1ML IV PRN ×5 (01:00→23:12)
[2021-02-04] MEDS: morphine SULFATE 10 MG/ML, 1ML IVPush PRN ×4 (01:00→21:31)
[2021-02-04] MEDS ORDERED: OXYcodone IR 5MG TABLET PO PRN (04:30)
[2021-02-04 05:04] LABS: BASOPHILS % (AUTO) 0 % (0-1); EOSINOPHILS % (AUTO) 1 % (1-7); LYMPHOCYTES % (AUTO) 11 % (22-44); MEAN CORPUSCULAR HEMOGLOBIN 36.5 pg (27.5-34.5); MEAN CORPUSCULAR HGB CONC 34.6 g/dL (33.2-36.2); MEAN PLATELET VOLUME 7.3 fL (7.4-10.4); MONOCYTES % (AUTO) 6 % (2-9); NEUTROPHILS % (AUTO) 83 % (42-75); RED BLOOD COUNT 3.02 x10^6/uL (4.38-5.82); RED CELL DISTRIBUTION WIDTH 14.5 % (9.4-14.8)
[2021-02-04 05:15] LABS: CHLORIDE 109 mmol/L (98-107)
[2021-02-04 05:20] LABS: ANION GAP 7 mmol/L (5-15); CALCIUM 7.1 mg/dL (8.5-10.1); CREATININE 0.79 mg/dL (0.7-1.3); TRIGLYCERIDES 170 mg/dL (50-200)
[2021-02-04 06:32] LABS: PLATELET COUNT 40 x10^3/uL (130-400)
[2021-02-04 07:18] LABS: % IRON SATURATION 18 % (20-55); IRON LEVEL 59 mcg/dL (65-175); TOTAL IRON BINDING CAPACITY 323 mcg/dL (250-450)
[2021-02-04 08:24] VITALS: BP 162/93
[2021-02-04] MEDS ORDERED: ACETAMINOPHEN 325 MG TABLET PO PRN (08:30)
[2021-02-04] MEDS ORDERED: LORazepam 1MG TABLET PO PRN (08:30)
[2021-02-04] MEDS ORDERED: POTASSIUM CHLORIDE 20 MEQ TAB.ER.PRT PO ONE (08:30)
[2021-02-04] MEDS ORDERED: LORazepam 0.5MG TABLET PO PRN (08:30)
[2021-02-04] MEDS: THIAMINE 100MG TABLET PO SCH ×2 (08:43→20:06)
[2021-02-04] MEDS: FERROUS SULFATE 325 MG TABLET PO SCH (08:43)
[2021-02-04] MEDS: LACTOBACILLUS CHEW TABLET PO SCH ×3 (08:43→20:06)
[2021-02-04] MEDS: FAMOTIDINE 20 MG TABLET PO SCH ×2 (08:43→20:06)
[2021-02-04 13:14] VITALS: BP 145/88
[2021-02-04] MEDS: OXYcodone IR 5MG TABLET PO PRN ×2 (13:27→20:06)
[2021-02-04] MEDS: NACL IV SCH (18:23)
[2021-02-04] MEDS: D5 IV SCH (18:23)
[2021-02-04] MEDS: FOLIC ACID IV SCH (18:23)
[2021-02-04] MEDS: MVI ADULT IV SCH (18:23)
[2021-02-04] MEDS: THIAMINE IV SCH (18:23)
[2021-02-04 19:07] VITALS: BP 131/87
[2021-02-05 00:57] VITALS: BP 132/81
[2021-02-05] MEDS: SODIUM CHLORIDE 0.9% 1,000 ML, SODIUM CHLORIDE 0.9% 1,000 ML IV SCH (01:11)
[2021-02-05] MEDS: morphine SULFATE 10 MG/ML, 1ML IVPush PRN ×4 (01:34→23:04)
[2021-02-05] MEDS: OXYcodone IR 5MG TABLET PO PRN ×3 (04:16→19:33)
[2021-02-05 06:00] LABS: ANION GAP 6 mmol/L (5-15); CALCIUM 7.7 mg/dL (8.5-10.1); CHLORIDE 109 mmol/L (98-107); CREATININE 0.85 mg/dL (0.7-1.3)
[2021-02-05 07:08] VITALS: BP 135/85
[2021-02-05 08:04] LABS: BASOPHILS % (AUTO) 0 % (0-1); EOSINOPHILS % (AUTO) 3 % (1-7); LYMPHOCYTES % (AUTO) 25 % (22-44); MEAN CORPUSCULAR HEMOGLOBIN 36.5 pg (27.5-34.5); MEAN CORPUSCULAR HGB CONC 34.4 g/dL (33.2-36.2); MEAN PLATELET VOLUME 7.9 fL (7.4-10.4); MONOCYTES % (AUTO) 6 % (2-9); NEUTROPHILS % (AUTO) 66 % (42-75); RED BLOOD COUNT 3.01 x10^6/uL (4.38-5.82); RED CELL DISTRIBUTION WIDTH 14.5 % (9.4-14.8)
[2021-02-05] MEDS: FAMOTIDINE 20 MG TABLET PO SCH ×2 (08:12→21:20)
[2021-02-05] MEDS: THIAMINE 100MG TABLET PO SCH ×2 (08:12→21:20)
[2021-02-05] MEDS: LACTOBACILLUS CHEW TABLET PO SCH ×3 (08:12→21:20)
[2021-02-05] MEDS: LORazepam 2 MG/ML, 1ML IV PRN ×2 (08:29→15:28)
[2021-02-05 08:40] LABS: PLATELET COUNT 47 x10^3/uL (130-400)
[2021-02-05 13:04] VITALS: BP 119/79
[2021-02-05] MEDS: ENOXAPARIN 40 MG/0.4 ML SQ SCH (15:28)
[2021-02-05] MEDS: MVI ADULT IV SCH (18:16)
[2021-02-05] MEDS: NACL IV SCH (18:16)
[2021-02-05] MEDS: FOLIC ACID IV SCH (18:16)
[2021-02-05] MEDS: THIAMINE IV SCH (18:16)
[2021-02-05] MEDS: D5 IV SCH (18:16)
[2021-02-05 19:06] VITALS: BP 132/78
[2021-02-05] MEDS: LORazepam 1MG TABLET PO PRN (19:33)
[2021-02-05] MEDS: QUETIAPINE 100MG TABLET PO SCH (21:20)
[2021-02-06] MEDS: SODIUM CHLORIDE 0.9% 1,000 ML, SODIUM CHLORIDE 0.9% 1,000 ML IV SCH (01:11)
[2021-02-06] MEDS: LORazepam 1MG TABLET PO PRN ×2 (01:12→04:34)
[2021-02-06] MEDS: OXYcodone IR 5MG TABLET PO PRN ×3 (01:12→17:19)
[2021-02-06 01:17] VITALS: BP 139/72
[2021-02-06] MEDS: morphine SULFATE 10 MG/ML, 1ML IVPush PRN ×4 (03:10→22:08)
[2021-02-06 05:26] LABS: BASOPHILS % (AUTO) 0 % (0-1); EOSINOPHILS % (AUTO) 4 % (1-7); LYMPHOCYTES % (AUTO) 25 % (22-44); MEAN CORPUSCULAR HGB CONC 35.1 g/dL (33.2-36.2); MEAN PLATELET VOLUME 7.5 fL (7.4-10.4); MONOCYTES % (AUTO) 7 % (2-9); NEUTROPHILS % (AUTO) 64 % (42-75); RED CELL DISTRIBUTION WIDTH 14.8 % (9.4-14.8)
[2021-02-06 05:35] LABS: PLATELET COUNT 45 x10^3/uL (130-400)
[2021-02-06] MEDS: QUETIAPINE 100MG TABLET PO SCH ×2 (07:28→22:08)
[2021-02-06] MEDS: LACTOBACILLUS CHEW TABLET PO SCH ×3 (07:28→22:08)
[2021-02-06] MEDS: THIAMINE 100MG TABLET PO SCH ×2 (07:29→22:08)
[2021-02-06] MEDS: FAMOTIDINE 20 MG TABLET PO SCH ×2 (07:29→22:08)
[2021-02-06] MEDS: VENLAFAXINE 75 MG CAP ER PO SCH (07:29)
[2021-02-06] MEDS: FERROUS SULFATE 325 MG TABLET PO SCH (07:29)
[2021-02-06 07:45] VITALS: BP 135/81
[2021-02-06] MEDS ORDERED: OMNIPAQUE 350 MG/ML, 150 ML BOTTLE ONE (10:57)
[2021-02-06 12:32] VITALS: BP 135/74
[2021-02-06] MEDS: ENOXAPARIN 40 MG/0.4 ML SQ SCH (16:12)
[2021-02-06] MEDS: D5 IV SCH (17:20)
[2021-02-06] MEDS: MVI ADULT IV SCH (17:20)
[2021-02-06] MEDS: THIAMINE IV SCH (17:20)
[2021-02-06] MEDS: FOLIC ACID IV SCH (17:20)
[2021-02-06] MEDS: NACL IV SCH (17:20)
[2021-02-06] MEDS ORDERED: DOCUSATE 100 MG CAPSULE PO PRN (18:30)
[2021-02-06 20:39] VITALS: BP 133/87
[2021-02-07] MEDS: SODIUM CHLORIDE 0.9% 1,000 ML, SODIUM CHLORIDE 0.9% 1,000 ML IV SCH ×2 (01:22→14:07)
[2021-02-07 01:44] VITALS: BP 125/80
[2021-02-07] MEDS: morphine SULFATE 10 MG/ML, 1ML IVPush PRN ×3 (02:58→13:59)
[2021-02-07] MEDS ORDERED: POLYETHYLENE GLYCOL 17 GM PACKET PO PRN (07:30)
[2021-02-07] MEDS: FAMOTIDINE 20 MG TABLET PO SCH (08:54)
[2021-02-07] MEDS: LACTOBACILLUS CHEW TABLET PO SCH ×2 (08:54→16:41)
[2021-02-07] MEDS: VENLAFAXINE 75 MG CAP ER PO SCH (08:55)
[2021-02-07] MEDS: THIAMINE 100MG TABLET PO SCH (08:55)
[2021-02-07] MEDS: QUETIAPINE 100MG TABLET PO SCH (08:55)
[2021-02-07 14:32] VITALS: BP 116/78
[2021-02-07] MEDS ORDERED: THIA100T67 PO (15:03)
[2021-02-07] MEDS: ENOXAPARIN 40 MG/0.4 ML SQ SCH (16:41)
[2021-02-07 18:51] VITALS: BP 134/82
[2021-02-08] MEDS ORDERED: VENLAFAXINE XR 37.5MG CAP.ER.24H PO SCH (09:00)
== END 2021-02-07 19:41 | DRG 100 ==
LOC: ED 14:15 → 4WST 14:16 → SUATTDRO 14:30 → 3E 02-07 19:30 → 4WST 02-07 19:35 → 4NE 02-07 19:59 → 3E 02-07 19:59
PROVIDERS: ADMIT Internal Medicine; ATTEND Hospitalist
DX: G40.89 Other seizures (principal); K85.20 Alcohol induced acute pancreatitis without necrosis or infection; A04.72 Enterocolitis due to Clostridium difficile, not specified as recurrent; D61.818 Other pancytopenia; F10.239 Alcohol dependence with withdrawal, unspecified; I13.0 Hypertensive heart and chronic kidney disease with heart failure and stage 1 through stage 4 chronic kidney disease, or unspecified chronic kidney disease; R45.851 Suicidal ideations; D50.9 Iron deficiency anemia, unspecified; D53.9 Nutritional anemia, unspecified; E10.22 Type 1 diabetes mellitus with diabetic chronic kidney disease; E66.9 Obesity, unspecified; E78.5 Hyperlipidemia, unspecified; E87.6 Hypokalemia; F10.229 Alcohol dependence with intoxication, unspecified; F12.90 Cannabis use, unspecified, uncomplicated; K70.10 Alcoholic hepatitis without ascites; K70.30 Alcoholic cirrhosis of liver without ascites; N18.30 Chronic kidney disease, stage 3 unspecified; N40.0 Benign prostatic hyperplasia without lower urinary tract symptoms; I48.0 Paroxysmal atrial fibrillation; Z96.643 Presence of artificial hip joint, bilateral; F31.9 Bipolar disorder, unspecified; F41.9 Anxiety disorder, unspecified; Z83.3 Family history of diabetes mellitus; Z82.49 Family history of ischemic heart disease and other diseases of the circulatory system; Z83.6 Family history of other diseases of the respiratory system; Z91.19 Patient's noncompliance with other medical treatment and regimen; Z86.718 Personal history of other venous thrombosis and embolism; Z79.01 Long term (current) use of anticoagulants; Z79.899 Other long term (current) drug therapy; Z86.711 Personal history of pulmonary embolism; Z90.49 Acquired absence of other specified parts of digestive tract; Z56.0 Unemployment, unspecified; Z88.0 Allergy status to penicillin; Z88.1 Allergy status to other antibiotic agents; Z88.8 Allergy status to other drugs, medicaments and biological substances; Z91.030 Bee allergy status; Z68.34 Body mass index [BMI] 34.0-34.9, adult
CPT/HCPCS: 36415; 96365; 99285; J7042; 71045; 74177; 80048; 80053; 80320; 82150; 82607; 83540; 83550; 83690; 83735; 84100; 84443; 84478; 84484; 85025; 87635; 93005; G0378; J1650; J1885; J3411; J3475; Q9967; G0480; J2060; J2270; J7030; Q0177

== ENCOUNTER 2021-02-26 06:56 | Emergency (ER) | payer MEDICAID ==
[~2021-02-26] VITALS: Ht 182.9 cm; Wt 104.2 kg
[~2021-02-26 06:56] MED LIST changes: +ACAM333T7 PO; +FAMO20TA7 PO; +FERR-36 PO; +PROP10TA16 PO; +VENL37.52 PO
--- NOTE | 2021-02-26 07:05 | NUR ---
EKG COMPLETED IN TRIAGE.
--- NOTE | 2021-02-26 07:50 | NUR ---
PT PRESENTS TO ED WITH CC OF SI/SA. PT STATES THEY TOOK 10-15 TABS OF 20MG PROPRANOLOL AT APPROX 2200 ALONG WITH DRINKING APPROX 6 "HURRICANE BEERS". PT STATES N/V LAST NIGHT AND DIARRHEA THE PAST COUPLE DAYS. PT ALSO STATES ABD PAIN IN RUQ/RLQ. PT A&O, RESPS EVEN AND UNLABORED, VSS, ALL MONITORS ATTACHED, NSR, NADN. PT BELONGINGS LOCKED AWAY IN ED LOCKER, BELONGINGS LIST FILLED AND SIGNED. ALL SECURITY PRECAUTIONS IN PLACE, SITTER AT BEDSIDE.
[2021-02-26] MEDS ORDERED: MAALOX/HYOSCYAMINE/LIDOCAINE 45 ML BTL PO ONE (08:00)
[2021-02-26] MEDS ORDERED: MAALOX/HYOSCYAMINE/LIDOCAINE 45 ML BTL ONE (08:02)
[2021-02-26 08:13] LABS: BASOPHILS % (AUTO) 1 % (0-1); EOSINOPHILS % (AUTO) 1 % (1-7); LYMPHOCYTES % (AUTO) 16 % (22-44); MEAN CORPUSCULAR HEMOGLOBIN 35.5 pg (27.5-34.5); MEAN CORPUSCULAR HGB CONC 34.8 g/dL (33.2-36.2); MEAN PLATELET VOLUME 7.2 fL (7.4-10.4); MONOCYTES % (AUTO) 7 % (2-9); NEUTROPHILS % (AUTO) 76 % (42-75); PLATELET COUNT 214 x10^3/uL (130-400); RED BLOOD COUNT 3.86 x10^6/uL (4.38-5.82); RED CELL DISTRIBUTION WIDTH 13.9 % (9.4-14.8)
[2021-02-26 08:26] LABS: CHLORIDE 110 mmol/L (98-107)
[2021-02-26 08:28] LABS: AMPHETAMINE SCREEN, URINE Negative (Negative); BARBITURATE SCREEN, URINE Negative (Negative); BENZODIAZEPINE SCREEN, URINE Positive (Negative); CANNABINOID SCREEN, URINE Negative (Negative); COCAINE SCREEN, URINE Negative (Negative); METHADONE SCREEN, URINE Negative (Negative)
[2021-02-26 08:29] LABS: OPIATE SCREEN, URINE Negative (Negative)
--- NOTE | 2021-02-26 08:44 | NUR ---
PSYCH TRAVIS VALENCIA WILL BE IN TO SEE PATIENT SLIM
[2021-02-26 09:22] LABS: ALBUMIN 3.8 g/dL (3.4-5.0); ANION GAP 10 mmol/L (5-15); CALCIUM 8.8 mg/dL (8.5-10.1)
[2021-02-26 09:25] LABS: ALANINE AMINOTRANSFERASE 52 U/L (12-78); ALKALINE PHOSPHATASE 94 U/L (45-117); CREATININE 1.24 mg/dL (0.7-1.3)
[2021-02-26 09:26] LABS: SALICYLATE LEVEL < 1.7 mg/dL (2.8-20.0)
--- NOTE | 2021-02-26 09:38 | NUR ---
PT SITTING UP IN BED, RESPS EVEN AND UNLABORED, VSS, NADN. PT STATES HE IS NOT HUNGRY AT THIS TIME. ALL MONITORS ATTACHED, NSR, ALL SECUTIRY PRECAUTIONS IN PLACE, SITTER AT BEDSIDE.
[2021-02-26 10:01] LABS: ACETONE, SERUM Negative (Negative)
--- NOTE | 2021-02-26 10:25 | NUR ---
PT SITTING UP IN BED, A&O, RESPS EVEN AND UNLABORED, VSS, ALL MONITORS ATTACHED, NSR WITH NO ECTOPY, NADN. ALL SECUTIRY PRECAUTIONS IN PLACE, SITTER AT BEDSIDE.
[2021-02-26] MEDS ORDERED: VENLAFAXINE XR 37.5MG CAP.ER.24H PO SCH (11:00)
[2021-02-26] MEDS ORDERED: QUETIAPINE 100MG TABLET PO SCH ×2 (11:00→21:00)
[2021-02-26] MEDS ORDERED: LORazepam 1MG TABLET PO ONE (11:00)
[2021-02-26] MEDS ORDERED: QUETIAPINE 100MG TABLET ONE (11:15)
[2021-02-26] MEDS ORDERED: LORazepam 1MG TABLET ONE (11:15)
[2021-02-26] MEDS ORDERED: FAMOTIDINE 20 MG TABLET ONE (11:15)
[2021-02-26] MEDS ORDERED: FAMOTIDINE 20 MG TABLET PO/NG ONE (11:30)
[2021-02-26 11:42] VITALS: BP 116/88
--- NOTE | 2021-02-26 11:43 | NUR ---
PT MEDICATED PER ORDER, TOLERATED WELL. PT SITTING IN BED, VSS, NADN, RESPS EVEN AND UNLABORED, A&O. LUNCH TRAY ORDERED, SECURITY PRECAUTIONS IN PLACE, SITTER AT BEDSIDE.
--- NOTE | 2021-02-26 12:04 | NUR ---
MEAL TRAY PROVIDED, PT A&O, RESPS EVEN AND UNLABORED, SECURITY PRECAUTIONS IN PLACE, SITTER AT BEDSIDE, ADALBERTO.
--- NOTE | 2021-02-26 13:25 | NUR ---
attempt to call report to receiving rn Michael at this time, per [facility] nurse is unable to get to the phone right now and will call back
--- NOTE | 2021-02-26 13:33 | NUR ---
report given to receiving pete Rodriguez
== END 2021-02-26 14:06 ==
LOC: ED 09:17
DX: F33.9 Major depressive disorder, recurrent, unspecified (principal); Z20.822 Contact with and (suspected) exposure to COVID-19; R45.851 Suicidal ideations; K29.20 Alcoholic gastritis without bleeding; R11.2 Nausea with vomiting, unspecified; E86.0 Dehydration; I10 Essential (primary) hypertension; E78.5 Hyperlipidemia, unspecified; Z90.49 Acquired absence of other specified parts of digestive tract
CPT/HCPCS: 36415; 80053; 80299; 80307; 80320; 80329; 82010; 83690; 85025; 87426; 93005; 99285; G0480

== ENCOUNTER 2021-02-26 12:31 | Inpatient (IN) | payer MEDICAID ==
[~2021-02-26] VITALS: Ht 182.9 cm; Wt 106.2 kg
[2021-02-26] MEDS ORDERED: POLYETHYLENE GLYCOL 17 GM PACKET PO PRN (13:00)
[2021-02-26] MEDS ORDERED: DOCUSATE 100 MG CAPSULE PO PRN (13:00)
[2021-02-26] MEDS ORDERED: BISACODYL 10 MG SUPP PR PRN (13:00)
[2021-02-26] MEDS ORDERED: ACETAMINOPHEN 325 MG TABLET PO PRN (13:00)
[2021-02-26] MEDS ORDERED: ONDANSETRON ODT 4 MG PO PRN (13:00)
[2021-02-26 14:16] VITALS: BP 123/81
[2021-02-26] MEDS ORDERED: PLEASE ENTER HEIGHT AND WEIGHT MC SCH (14:30)
[2021-02-26] MEDS ORDERED: LORazepam 1MG TABLET ONE (14:54)
[2021-02-26] MEDS: LORazepam 1MG TABLET PO SCH ×2 (14:56→18:32)
[2021-02-26] MEDS ORDERED: MAALOX/HYOSCYAMINE/LIDOCAINE 45 ML BTL PO PRN (16:00)
[2021-02-26] MEDS: ACAMPROSATE 333 MG TABLET.DR PO SCH ×2 (16:00→20:59)
[2021-02-26] MEDS: PROPRANOLOL 10 MG TABLET PO SCH (18:33)
[2021-02-26 19:45] VITALS: BP 98/65
[2021-02-26] MEDS: FAMOTIDINE 20 MG TABLET PO SCH (20:59)
[2021-02-26] MEDS: QUETIAPINE 200 MG TABLET PO SCH (20:59)
[2021-02-27 01:17] VITALS: BP 101/67
[2021-02-27] MEDS: LORazepam 1MG TABLET PO SCH ×3 (01:35→16:58)
[2021-02-27 05:52] VITALS: BP 118/73
[2021-02-27] MEDS: PROPRANOLOL 10 MG TABLET PO SCH ×2 (05:52→16:58)
[2021-02-27 07:24] VITALS: BP 106/67
[2021-02-27] MEDS: VENLAFAXINE XR 37.5MG CAP.ER.24H PO SCH (08:30)
[2021-02-27] MEDS: QUETIAPINE 200 MG TABLET PO SCH ×2 (08:30→20:06)
[2021-02-27] MEDS: FAMOTIDINE 20 MG TABLET PO SCH ×2 (08:30→20:06)
[2021-02-27] MEDS: THIAMINE 100MG TABLET PO SCH (08:30)
[2021-02-27] MEDS: ACAMPROSATE 333 MG TABLET.DR PO SCH ×3 (08:30→20:06)
[2021-02-27] MEDS: FOLIC ACID 1 MG TABLET PO SCH (08:31)
[2021-02-27] MEDS: LORazepam 1MG TABLET PO PRN ×3 (11:02→20:06)
[2021-02-27 19:17] VITALS: BP 118/71
[2021-02-28 05:57] VITALS: BP 107/68
[2021-02-28] MEDS: PROPRANOLOL 10 MG TABLET PO SCH ×2 (06:01→17:38)
[2021-02-28 07:57] VITALS: BP 110/72
[2021-02-28] MEDS: ACAMPROSATE 333 MG TABLET.DR PO SCH ×3 (07:59→20:33)
[2021-02-28] MEDS: FAMOTIDINE 20 MG TABLET PO SCH ×2 (07:59→20:33)
[2021-02-28] MEDS: QUETIAPINE 200 MG TABLET PO SCH ×2 (07:59→20:33)
[2021-02-28] MEDS: VENLAFAXINE XR 37.5MG CAP.ER.24H PO SCH (07:59)
[2021-02-28] MEDS: LORazepam 1MG TABLET PO SCH ×3 (07:59→17:38)
[2021-02-28] MEDS: FOLIC ACID 1 MG TABLET PO SCH (07:59)
[2021-02-28] MEDS: THIAMINE 100MG TABLET PO SCH (07:59)
[2021-02-28 14:18] LABS: MICROSCOPIC NOT IND
[2021-02-28 19:21] VITALS: BP 98/67
[2021-02-28 20:26] VITALS: BP 105/69
[2021-02-28] MEDS: LORazepam 1MG TABLET PO PRN (20:33)
[2021-03-01 05:53] VITALS: BP 99/69
[2021-03-01] MEDS: PROPRANOLOL 10 MG TABLET PO SCH ×2 (05:54→18:05)
[2021-03-01 07:44] VITALS: BP 120/82
[2021-03-01] MEDS: LORazepam 1MG TABLET PO SCH ×3 (08:29→16:31)
[2021-03-01] MEDS: ACAMPROSATE 333 MG TABLET.DR PO SCH ×3 (08:29→20:37)
[2021-03-01] MEDS: FAMOTIDINE 20 MG TABLET PO SCH ×2 (08:30→20:37)
[2021-03-01] MEDS: VENLAFAXINE XR 37.5MG CAP.ER.24H PO SCH (08:30)
[2021-03-01] MEDS: FOLIC ACID 1 MG TABLET PO SCH (08:30)
[2021-03-01] MEDS: QUETIAPINE 200 MG TABLET PO SCH ×2 (08:31→20:37)
[2021-03-01] MEDS: THIAMINE 100MG TABLET PO SCH (08:31)
[2021-03-01 18:01] VITALS: BP 113/75
[2021-03-01 19:26] VITALS: BP 108/69
[2021-03-02 05:58] VITALS: BP 108/67
[2021-03-02] MEDS: PROPRANOLOL 10 MG TABLET PO SCH (05:59)
[2021-03-02 07:26] VITALS: BP 117/73
[2021-03-02] MEDS: THIAMINE 100MG TABLET PO SCH (08:51)
[2021-03-02] MEDS: FOLIC ACID 1 MG TABLET PO SCH (08:51)
[2021-03-02] MEDS: VENLAFAXINE XR 37.5MG CAP.ER.24H PO SCH (08:51)
[2021-03-02] MEDS: FAMOTIDINE 20 MG TABLET PO SCH (08:51)
[2021-03-02] MEDS: LORazepam 1MG TABLET PO SCH ×2 (08:51→12:01)
[2021-03-02] MEDS: ACAMPROSATE 333 MG TABLET.DR PO SCH (08:51)
[2021-03-02] MEDS: QUETIAPINE 200 MG TABLET PO SCH (08:51)
[2021-03-02] MEDS ORDERED: FAMO20TA7 PO (12:46)
[2021-03-02] MEDS ORDERED: QUET200T PO ×2 (12:46)
[2021-03-02] MEDS ORDERED: VENL37.52 PO (12:46)
[2021-03-02] MEDS ORDERED: PROP10TA16 PO (12:46)
[2021-03-02] MEDS ORDERED: ACAM333T7 PO (12:46)
[2021-03-02] MEDS ORDERED: HYDR-826 PO (12:46)
== END 2021-03-02 15:00 | disposition home or self-care (01) | DRG 885 ==
LOC: 3E 14:14
PROVIDERS: ADMIT Psychiatry & Neurology Psychosomatic Medicine; ATTEND Psychiatry & Neurology Psychosomatic Medicine
DX: F31.30 Bipolar disorder, current episode depressed, mild or moderate severity, unspecified (principal); N18.30 Chronic kidney disease, stage 3 unspecified; R45.851 Suicidal ideations; E78.5 Hyperlipidemia, unspecified; F41.1 Generalized anxiety disorder; G89.29 Other chronic pain; I12.9 Hypertensive chronic kidney disease with stage 1 through stage 4 chronic kidney disease, or unspecified chronic kidney disease; K21.9 Gastro-esophageal reflux disease without esophagitis; Z96.643 Presence of artificial hip joint, bilateral; F10.20 Alcohol dependence, uncomplicated; F39 Unspecified mood [affective] disorder; Z60.2 Problems related to living alone; Y90.0 Blood alcohol level of less than 20 mg/100 ml; K70.30 Alcoholic cirrhosis of liver without ascites; Z88.0 Allergy status to penicillin; Z88.1 Allergy status to other antibiotic agents; Z88.8 Allergy status to other drugs, medicaments and biological substances; Z91.030 Bee allergy status; Z79.899 Other long term (current) drug therapy; Z83.3 Family history of diabetes mellitus; Z86.711 Personal history of pulmonary embolism; Z86.718 Personal history of other venous thrombosis and embolism; Z90.49 Acquired absence of other specified parts of digestive tract; Z91.5 Personal history of self-harm; Z82.49 Family history of ischemic heart disease and other diseases of the circulatory system
CPT/HCPCS: 36415; 71045; 81003; 82140; 93005

== ENCOUNTER 2021-04-05 20:32 | Emergency (ER) | payer MEDICAID ==
[~2021-04-05] VITALS: Ht 190.5 cm; Wt 100.0 kg
[2021-04-05] MEDS ORDERED: ONDANSETRON 2MG/ML, 2ML ONE (21:23)
[2021-04-05] MEDS ORDERED: ONDANSETRON 2MG/ML, 2ML IVPush ONE (21:30)
--- NOTE | 2021-04-05 21:58 | NUR ---
PT BIB EMS. AMBULATORY TO BED. PT REPORTS SUDDEN ONSET OF CHEST PAIN IN THE CENTER OF CHEST THAT RADIATES TO THE BACK. PT HAS A HX OF STENT IN 2008. PT IS A DAILY DRINKER. 1 PINT PER DAY. PT REPORTS BLACK STOOLS AND VOMIT ONSET TODAY. PT HOOKED UP TO MONITORS. BLOOD DRAWN AND SENT TO LAB. WILL CONTINUE TO MONITOR. PROVIDER AT BEDSIDE.
[2021-04-05 22:06] LABS: BASOPHILS % (AUTO) 0 % (0-1); EOSINOPHILS % (AUTO) 0 % (1-7); LYMPHOCYTES % (AUTO) 26 % (22-44); MEAN CORPUSCULAR HEMOGLOBIN 34.3 pg (27.5-34.5); MEAN CORPUSCULAR HGB CONC 34.8 g/dL (33.2-36.2); MEAN PLATELET VOLUME 7.2 fL (7.4-10.4); MONOCYTES % (AUTO) 6 % (2-9); NEUTROPHILS % (AUTO) 68 % (42-75); PLATELET COUNT 96 x10^3/uL (130-400); RED BLOOD COUNT 3.73 x10^6/uL (4.38-5.82); RED CELL DISTRIBUTION WIDTH 13.4 % (9.4-14.8)
[2021-04-05 22:16] LABS: ALBUMIN 3.3 g/dL (3.4-5.0); ANION GAP 14 mmol/L (5-15); CALCIUM 8.2 mg/dL (8.5-10.1); CHLORIDE 110 mmol/L (98-107); CREATININE 1.23 mg/dL (0.7-1.3)
[2021-04-05 22:20] LABS: TROPONIN I < 0.015 ng/mL (0.000-0.045)
[2021-04-05] MEDS ORDERED: SODIUM CHLORIDE 0.9% 1,000ML IVBOLUS ONE (22:30)
[2021-04-05] MEDS ORDERED: POTASSIUM CHLORIDE 20 MEQ TAB.ER.PRT PO ONE (22:30)
[2021-04-05] MEDS ORDERED: SODIUM CHLORIDE FLUSH 10ML SYR IVF ONE (22:30)
[2021-04-05] MEDS ORDERED: THIAMINE 100MG TABLET PO ONE (22:30)
[2021-04-05] MEDS ORDERED: POTASSIUM CHLORIDE 20 MEQ TAB.ER.PRT ONE (22:47)
[2021-04-05] MEDS ORDERED: THIAMINE 100MG TABLET ONE (22:47)
[2021-04-05] MEDS ORDERED: MAALOX/HYOSCYAMINE/LIDOCAINE 45 ML BTL ONE (23:21)
[2021-04-05] MEDS ORDERED: MAALOX/HYOSCYAMINE/LIDOCAINE 45 ML BTL PO ONE (23:30)
[2021-04-06] MEDS ORDERED: MAGNESIUM SULFATE 1 GM, THIAMINE 100 MG, FOLIC ACID 1 MG, MVI ADULT 10 ML in SODIUM CHL... IV ONE
--- NOTE | 2021-04-06 00:47 | NUR ---
NOTIFIED PROVIDER MULTIPLE TIMES OF PT REQUEST FOR PAIN MEDS. PROVIDER REPORTS PLAN OF CARE IS TO WAIT UNTIL BANANA BAG FINISES INFUSING BEFORE GIVING MORE PAIN MEDS. NOTIFIED PT OF POC
[2021-04-06] MEDS ORDERED: ACETAMINOPHEN 500 MG TABLET ONE (00:57)
[2021-04-06] MEDS ORDERED: ACETAMINOPHEN 500 MG TABLET PO ONE (01:00)
--- NOTE | 2021-04-06 01:39 | NUR ---
BREAK RN: DR HANLEY IN ROOM
[2021-04-06 01:49] LABS: ALBUMIN 3.2 g/dL (3.4-5.0); BILIRUBIN, DIRECT 0.2 mg/dL (0.1-0.2)
[2021-04-06] MEDS ORDERED: MAALOX/HYOSCYAMINE/LIDOCAINE 45 ML BTL ONE (01:50)
[2021-04-06 01:51] LABS: BILIRUBIN,INDIRECT 0.2 mg/dL (0.0-2.0); BILIRUBIN,TOTAL 0.4 mg/dL (0.2-1.0); TOTAL PROTEIN 7.2 g/dL (6.4-8.2)
[2021-04-06] MEDS ORDERED: MAALOX/HYOSCYAMINE/LIDOCAINE 45 ML BTL PO ONE (02:00)
--- NOTE | 2021-04-06 02:03 | NUR ---
BREAK RN: PT GIVEN A GI COCKTAIL. VS STABLE. REPORT GIVEN TO SENDY PUTNAM
[2021-04-06] MEDS ORDERED: LORazepam 2 MG/ML, 1ML ONE ×2 (02:20→03:31)
[2021-04-06] MEDS ORDERED: LORazepam 2 MG/ML, 1ML IVPush ONE ×2 (02:30→03:30)
[2021-04-06] MEDS ORDERED: SODIUM CHLORIDE 0.9% 1,000ML IVBOLUS ONE (03:30)
[2021-04-06 03:36] VITALS: BP 141/81
--- NOTE | 2021-04-06 03:45 | NUR ---
PATIENT REQUESTING TO LEAVE. PA JUANA AWARE.
--- NOTE | 2021-04-06 03:50 | NUR ---
PATIENT HAD LEFT HAND 20G IV WHICH WAS REMOVED PRIOR TO PATIENT LEAVING.
--- NOTE | 2021-04-06 03:52 | NUR ---
AMA PAPERWORK SIGNED AT THIS TIME.
== END 2021-04-06 04:09 | disposition left against medical advice (07) ==
LOC: ED 21:35 → EDIP 04-06 01:09 → UNDOADMOB 04-06 01:09 → ED 04-06 04:09
DX: K29.20 Alcoholic gastritis without bleeding (principal); R07.89 Other chest pain; R07.2 Precordial pain; R11.2 Nausea with vomiting, unspecified; I10 Essential (primary) hypertension; F10.220 Alcohol dependence with intoxication, uncomplicated; E87.6 Hypokalemia; Z86.718 Personal history of other venous thrombosis and embolism; Z90.49 Acquired absence of other specified parts of digestive tract; Y90.0 Blood alcohol level of less than 20 mg/100 ml
CPT/HCPCS: 36415; 71045; 80048; 80076; 80320; 82040; 83690; 84484; 85025; 93005; 96361; 96365; 96366; 96374; 96375; 96376; 99285; J2060; J2405; J3411; J3475; J7030; G0480